=== PATIENT | female | born 1940 | race Asian ===

== ENCOUNTER 2017-05-21 08:05 | Day surgery (SDC) | payer MEDICARE, OTHER ==
[2017-05-16 11:15] LABS: HEMATOCRIT 31.3 % (36.0-47.0); HEMOGLOBIN 10.4 g/dL (12.0-15.5); HGB HCT DIFFERENCE -0.1; MEAN CORPUSCULAR HEMOGLOBIN 33.3 pg (27.0-33.4); MEAN CORPUSCULAR HGB CONC 33.3 g/dL (32.0-36.0); MEAN CORPUSCULAR VOLUME 100 fl (80-97); RED BLOOD COUNT 3.12 10^6/uL (3.72-5.28); RED CELL DISTRIBUTION WIDTH 13.1 % (11.5-14.0); WHITE BLOOD COUNT 7.4 10^3/uL (4.0-10.5)
[2017-05-16 11:42] LABS: ANION GAP 18 (5-19); BLOOD UREA NITROGEN 98 mg/dL (7-20); CALCIUM 10.7 mg/dL (8.4-10.2); CARBON DIOXIDE 28 mmol/L (22-30); CHLORIDE 97 mmol/L (98-107); CREATININE RESULT 4.21 mg/dL (0.52-1.25); GLUCOSE 89 mg/dL (75-110); POTASSIUM 4.6 mmol/L (3.6-5.0); SODIUM 142.8 mmol/L (137-145)
--- NOTE | 2017-05-16 13:49 | EKG REPORT ---
SEVERITY:- BORDERLINE ECG - SINUS RHYTHM NONSPECIFIC ST-T CHANGES LATERAL LEADS. : Confirmed by: Slade Mims MD 16-May-2017 13:49:38
[~2017-05-21 08:05] MED LIST: BACITRACIN INJ 50,000 UNIT VIAL ONE; BUPIVACAINE HCL 0.25 % INJ/PF (2.5 MG/1 ML) 30 ML VIAL ONE; CEFAZOLIN 1 GM/D5W RTU 1 GM/50 ML RTUPB IV PRN; HEPARIN SOD (PORCINE) 1,000 UNIT/ML 10 ML VIAL ONE; LIDOCAINE 0.5% INJ-PF (5 MG/ML) 50 ML SDV ONE; LIDOCAINE 1% INJ-PF (10 MG/ML) 30 ML SDV ONE; NORMAL SALINE 1000 ML 1,000 ML IV PRN
[2017-05-21 09:22] LABS: POTASSIUM 3.7 mmol/L (3.6-5.0)
[2017-05-21] MEDS ORDERED: FENTANYL CITRATE INJ/PF 100 MCG/2 ML AMPUL ONE (09:27)
[2017-05-21] MEDS ORDERED: MIDAZOLAM 2 MG/2 ML INJ ONE (09:27)
[2017-05-21] MEDS ORDERED: PROPOFOL INJ 200 MG/20 ML VIAL IV ONE (09:28)
[2017-05-21] MEDS ORDERED: DEXTROSE 50%-WATER 25 GM/50 ML DISP.SYRIN IV ONE (09:40)
[2017-05-21] MEDS ORDERED: DIPHENHYDRAMINE HCL 50 MG/ML VIAL IV PRN (10:00)
[2017-05-21] MEDS ORDERED: MORPHINE SULFATE 10 MG/ML INJ IV PRN (10:00)
[2017-05-21] MEDS ORDERED: MEPERIDINE HCL/PF INJ 25 MG/1 ML DISP.SYRIN IV PRN (10:00)
[2017-05-21] MEDS ORDERED: PROMETHAZINE HCL INJ 25 MG/1 ML VIAL IV PRN ×2 (10:00)
[2017-05-21] MEDS ORDERED: OXYCODONE-ACETAMINOPHEN 5-325 MG TABLET PO PRN ×3 (10:00→16:34)
[2017-05-21] MEDS ORDERED: FENTANYL CITRATE INJ/PF 100 MCG/2 ML AMPUL IV PRN ×3 (10:00)
[2017-05-21] MEDS ORDERED: NITROGLYCERIN/D5W 0 MG/0 ML RTUINJ IV ONE (10:11)
[2017-05-21 10:36] LABS: PROTHROMBIN TIME 14.5 SEC (11.4-15.4)
[2017-05-21 10:41] LABS: PARTIAL THROMBOPLASTIN TIME 28.6 SEC (23.5-35.8)
--- NOTE | 2017-05-21 11:34 | Operative Report ---
Operative Report DATE OF SURGERY: 05/21/17 PREOPERATIVE DIAGNOSIS: #1 chronic kidney disease stage IV. 2. Diabetes mellitus type 2. 3. Sleep apnea. 4. Hypertension POSTOPERATIVE DIAGNOSIS: #1 chronic kidney disease stage IV. 2. Diabetes mellitus type 2. 3. Sleep apnea. 4. Hypertension OPERATION: Insertion of left brachiocephalic arteriovenous fistula. SURGEON: PONCE HELTON CATALOG SPECIALIST: SHANA MYERS ANESTHESIA: LMAC TISSUE REMOVED OR ALTERED: Not applicable. COMPLICATIONS: None ESTIMATED BLOOD LOSS: 5 mL INTRAOPERATIVE FINDINGS: Of fairly small blood vessels in this mall body lady. The cephalic vein did except a 3.5 mm dilator up to over 15 cm. The Doppler signals were suboptimal initially and declined. This was improved by releasing the cephalic for good 4 cm above the elbow seems to improve the hemodynamics of the anastomosis. There was a good auscultated bruit at the end of the procedure. PROCEDURE: Operative Report PROCEDURE: After reviewing the procedure with the patient, [she] was taken to the operating room. The patient was sedated and the [left upper extremity] prepared with chlorhexidine and draped out with sterile linen. After the "" universal timeout", in which it was verified that the patient [received IV antibiotics] the procedure commenced. The sterilely sheathed ultrasound probe was used to evaluate the left venous and arterial systems, pertinent to the previously done vein mapping. Local anesthesia was infiltrated and a transverse incision made over the upper forearm , near the antecubital fossa. Dissection proceeded through the subcutaneous tissues down to the cephalic vein. This was dissected out proximally and distally for about 4 cm. Likewise major branches. The Bicipital aponeurosis was now incised longitudinally and the brachial artery dissected out for a distance of about 1.5 cm. Rubber loops were placed on either end. The patient was given 2500 units of heparin intravenously. The deep branch of the cephalic vein was transected and irrigated with heparinized solution. The distal branches were clipped Coronary dilators were accepted [up to 3.5 mm], and up to 15 cm. The artery was controlled proximally and distally with rubber loops. An arteriotomy approximately [1 cm] in length was made, the artery was irrigated proximally and distally with heparinized solution. The transected vein was now spatulated , it was then anastomosed end to end to side into the brachial artery. This was done using a continuous suture of 6-0 Prolene. Controls of the fistula were now released and it was analyzed using a Doppler probe. Signal initially suboptimal decline. There is maneuvers were done including further release of the cephalic vein for another 4 cm with ligation of side branches. This visibly improve the configuration of the anastomosis. This coincided with much improved pulsation of the fistula and Doppler signals. Hemostasis was secured once optimal function was assured, the wound was irrigated with antibiotic containing solution and closed. Closure was done using interrupted 3-0 PDS for the subcutaneous tissues. The skin was closed using a continuous subcutaneous suture of 4-0 Monocryl which was reinforced with Steri-Strips over benzoin. I then left the operative field and returned with a stethoscope covered with a sterile Tegaderm dressing. This allowed external auscultation of the fistula. Auscultation was [satisfactory]. The procedure was concluded by applying a Kerlix dressing over the surgical site. DICTATING PHYSICIAN: Christiano JI
--- NOTE | 2017-05-21 11:38 | PDOC DISCHARGE SUMMARY ---
Discharge Summary (SDC) - Discharge Final Diagnosis: #1 chronic kidney disease stage IV. 2. Diabetes mellitus type 2. 3. Sleep apnea. 4. Hypertension Date of Surgery: 05/21/17 Discharge Date: 05/22/17 Condition: Fair Treatment or Instructions: Discharge home tomorrow morning after overnight stay. Diet , [renal],as tolerated, when fully awake advance as tolerated. Activities within moderation encouraged. Percocet 1 8 hourly as needed for pain. Orally. Follow up in my office by appointment in about [1 week]. Call for appointment. Leave wounds [covered], [keep clean and dry, until office visit in 1 week]. Hold of on school/work [until evaluation in office]. May shower [in 48 hrs], [try to keep operated area as dry as possible]. Prescriptions: Oxycodone HCl/Acetaminophen [Percocet 5-325 mg Tablet] 1 tab PO ASDIR PRN #15 tab PRN Reason: Referrals: SERENE CONTRERAS MD [Primary Care Provider] - Discharge Diet: Other (Comments) - Renal, diabetic. Respiratory Treatments at Home: Deep Breathing/Coughing Discharge Activity: Activity As Tolerated Report the Following to Your Physician Immediately: Shortness of Breath, Unusual Bleeding
[2017-05-21] MEDS ORDERED: INSULIN ASPART 1 UNIT SUBCUT PRN (13:17)
[2017-05-21] MEDS ORDERED: INSULIN LISPRO 100 UNIT/ML 3 ML VIAL SUBCUT PRN (13:28)
[2017-05-21] MEDS ORDERED: ONDANSETRON HCL INJ/PF 4 MG/2 ML SDV ONE (13:30)
[2017-05-21] MEDS ORDERED: LIDOCAINE 2% INJ-PF (20 MG/ML) 10 ML AMPUL ONE (13:30)
[2017-05-21] MEDS ORDERED: OXYCODONE-ACETAMINOPHEN 5-325 MG TABLET ONE (16:34)
[2017-05-21] MEDS ORDERED: INSULIN ASPART PROTAMINE SQ SCH (18:00)
[2017-05-21] MEDS ORDERED: (PENDING PHARMACY ID) (Ascorbate Calcium [Vitamin C] 500 MG) PO SCH (18:00)
[2017-05-21] MEDS ORDERED: GINKGO BILOBA 60 MG PO SCH (18:00)
[2017-05-21] MEDS ORDERED: [UNRECOGNIZED DRUG - OTHER] SQ SCH (18:00)
[2017-05-21] MEDS: ASCORBIC ACID 500 MG TABLET PO SCH (18:46)
[2017-05-21] MEDS: HUM INSULIN NPH/REG INSULIN HM 100 UNIT/1 ML 3 ML SUBCUT SCH (18:46)
[2017-05-21] MEDS ORDERED: ATORVASTATIN CALCIUM 40 MG TABLET PO SCH (22:00)
[2017-05-21] MEDS: LISINOPRIL 10 MG TABLET PO SCH (22:03)
[2017-05-21] MEDS: HYDRALAZINE HCL 50 MG TABLET PO SCH (22:03)
[2017-05-22 08:00] VITALS: BP 144/54
[2017-05-22] MEDS ORDERED: FUROSEMIDE 40 MG TABLET PO SCH (08:00)
[2017-05-22] MEDS: ASCORBIC ACID 500 MG TABLET PO SCH (09:33)
[2017-05-22] MEDS: LISINOPRIL 10 MG TABLET PO SCH (09:34)
[2017-05-22] MEDS: HUM INSULIN NPH/REG INSULIN HM 100 UNIT/1 ML 3 ML SUBCUT SCH (09:36)
[2017-05-22] MEDS: HYDRALAZINE HCL 50 MG TABLET PO SCH (09:41)
[2017-05-22] MEDS ORDERED: FENOFIBRATE NANOCRYSTALLIZED 145 MG TABLET PO SCH (10:00)
[2017-05-22] MEDS ORDERED: [UNRECOGNIZED DRUG - OTHER] PO SCH (10:00)
[2017-05-22] MEDS ORDERED: AMLODIPINE BESYLATE 10 MG TABLET PO SCH (10:00)
[2017-05-22] MEDS ORDERED: SODIUM BICARBONATE 650 MG TABLET PO SCH (10:00)
[2017-05-22] MEDS ORDERED: ASPIRIN 81 MG TABLET, CHEWABLE PO SCH (10:00)
[2017-05-22] MEDS ORDERED: MSM PO SCH (10:00)
[2017-05-22] MEDS ORDERED: GLUCOSAMINE HCL PO SCH (10:00)
[2017-05-22] MEDS ORDERED: DOXAZOSIN MESYLATE 1 MG TABLET PO SCH (10:00)
[2017-05-22] MEDS ORDERED: CHOLECALCIFEROL PO SCH (10:00)
[2017-05-22] MEDS ORDERED: LEVOTHYROXINE SODIUM 0.025 MG TABLET PO SCH (10:00)
[2017-05-28] MEDS ORDERED: CLONIDINE 0.3 MG/24 HR PATCH.TDWK TD SCH (10:00)
== END 2017-05-22 10:37 | disposition home or self-care (01) ==
LOC: OROUT 08:05 → 4N 13:16 → OROUT 05-22 10:37
PROVIDERS: ATTEND Surgery
PROC: 05SF0ZZ Reposition Left Cephalic Vein, Open Approach (ICD-10-PCS; principal; 2017-05-21 10:00)
DX: G47.33 Obstructive sleep apnea (adult) (pediatric) (principal); E03.9 Hypothyroidism, unspecified; D50.9 Iron deficiency anemia, unspecified; M19.90 Unspecified osteoarthritis, unspecified site; E87.5 Hyperkalemia; Z88.8 Allergy status to other drugs, medicaments and biological substances; I12.0 Hypertensive chronic kidney disease with stage 5 chronic kidney disease or end stage renal disease; E11.22 Type 2 diabetes mellitus with diabetic chronic kidney disease; N18.5 Chronic kidney disease, stage 5; I12.9 Hypertensive chronic kidney disease with stage 1 through stage 4 chronic kidney disease, or unspecified chronic kidney disease; E11.21 Type 2 diabetes mellitus with diabetic nephropathy; Z79.899 Other long term (current) drug therapy; Z79.82 Long term (current) use of aspirin; Z79.4 Long term (current) use of insulin
CPT/HCPCS: 36821; 93005; 36415 ×2; 82962; 82947; 84132; 85027; 85610; 85730; 80048; 93010; C1757; J2250; A9270 ×13; J3490 ×5; J0690; J3010; J1644; J2405; J2704; 01844; J1815

== ENCOUNTER → 2017-05-24 | Outpatient (CLI) | payer MEDICARE, OTHER ==
[2017-05-26 07:38] LABS: HEPATITIS C VIRUS AB <0.1 s/co ratio (0.0-0.9)
== END ==
LOC: OD 15:03
PROVIDERS: ATTEND Internal Medicine Nephrology
DX: E11.22 Type 2 diabetes mellitus with diabetic chronic kidney disease (principal); I12.9 Hypertensive chronic kidney disease with stage 1 through stage 4 chronic kidney disease, or unspecified chronic kidney disease; N18.5 Chronic kidney disease, stage 5; E11.21 Type 2 diabetes mellitus with diabetic nephropathy
CPT/HCPCS: 36415; 86317; 86704; 86803; 86804; 87340

== ENCOUNTER 2017-05-27 14:22 | Day surgery (SDC) | payer MEDICARE, OTHER ==
[2017-05-27 15:25] LABS: HEMATOCRIT 23.7 % (36.0-47.0); HEMOGLOBIN 8.3 g/dL (12.0-15.5); HGB HCT DIFFERENCE 1.2; MEAN CORPUSCULAR HEMOGLOBIN 34.1 pg (27.0-33.4); MEAN CORPUSCULAR HGB CONC 35.3 g/dL (32.0-36.0); MEAN CORPUSCULAR VOLUME 97 fl (80-97); RED BLOOD COUNT 2.45 10^6/uL (3.72-5.28); RED CELL DISTRIBUTION WIDTH 12.7 % (11.5-14.0); WHITE BLOOD COUNT 5.1 10^3/uL (4.0-10.5)
[2017-05-27 15:41] LABS: ANION GAP 15 (5-19); BLOOD UREA NITROGEN 84 mg/dL (7-20); CALCIUM 9.3 mg/dL (8.4-10.2); CARBON DIOXIDE 25 mmol/L (22-30); CHLORIDE 102 mmol/L (98-107); CREATININE RESULT 4.29 mg/dL (0.52-1.25); GLUCOSE 216 mg/dL (75-110); POTASSIUM 3.8 mmol/L (3.6-5.0); SODIUM 142.2 mmol/L (137-145)
[2017-05-27] MEDS ORDERED: FENTANYL CITRATE INJ/PF 100 MCG/2 ML AMPUL ONE (16:16)
[2017-05-27] MEDS ORDERED: LIDOCAINE 0.5% INJ-PF (5 MG/ML) 50 ML SDV ONE (16:16)
[2017-05-27] MEDS ORDERED: PROPOFOL INJ 200 MG/20 ML VIAL IV ONE (16:17)
[2017-05-27] MEDS ORDERED: BACITRACIN INJ 50,000 UNIT VIAL ONE (16:17)
[2017-05-27] MEDS ORDERED: MIDAZOLAM 2 MG/2 ML INJ ONE (16:17)
[2017-05-27] MEDS ORDERED: BUPIVACAINE HCL 0.25 % INJ/PF (2.5 MG/1 ML) 30 ML VIAL ONE (16:24)
[2017-05-27] MEDS ORDERED: CEFAZOLIN INJ 1 GM VIAL ONE (17:12)
[2017-05-27] MEDS ORDERED: MEPERIDINE HCL/PF INJ 25 MG/1 ML DISP.SYRIN IV PRN (17:13)
[2017-05-27] MEDS ORDERED: FENTANYL CITRATE INJ/PF 100 MCG/2 ML AMPUL IV PRN ×3 (17:13)
[2017-05-27] MEDS ORDERED: MORPHINE SULFATE 10 MG/ML INJ IV PRN (17:13)
[2017-05-27] MEDS ORDERED: PROMETHAZINE HCL INJ 25 MG/1 ML VIAL IV PRN ×2 (17:13)
[2017-05-27] MEDS ORDERED: ONDANSETRON HCL INJ/PF 4 MG/2 ML SDV IV PRN (17:13)
[2017-05-27] MEDS ORDERED: OXYCODONE-ACETAMINOPHEN 5-325 MG TABLET PO PRN ×2 (17:13)
[2017-05-27] MEDS ORDERED: DIPHENHYDRAMINE HCL 50 MG/ML VIAL IV PRN (17:13)
--- NOTE | 2017-05-27 18:04 | PDOC DISCHARGE SUMMARY ---
Discharge Summary (SDC) - Discharge Final Diagnosis: #1 end-stage renal disease requiring hemodialysis. 2. Diabetes mellitus type 2. 3. Hypertension. Date of Surgery: 05/27/17 Discharge Date: 05/28/17 Condition: Good Treatment or Instructions: Discharge home in the morning after overnight stay. Head up to 35 at all times for 48 hours. Diet , [renal],as tolerated, when fully awake advance as tolerated. Activities within moderation encouraged. Follow up in my office by appointment in about [3 weeks]. Call for appointment. Leave wounds [covered], [keep clean and dry, until office visit in 1 week]. Medications per med rec. Hold of on school/work [until evaluation in office]. May shower [in 48 hrs], [try to keep operated area as dry as possible]. Referrals: SERENE CONTRERAS MD [Primary Care Provider] - Discharge Diet: Other (Comments) - Renal Respiratory Treatments at Home: Deep Breathing/Coughing Discharge Activity: Activity As Tolerated Report the Following to Your Physician Immediately: Shortness of Breath, Unusual Bleeding
--- NOTE | 2017-05-27 18:07 | Operative Report ---
Operative Report DATE OF SURGERY: 05/27/17 PREOPERATIVE DIAGNOSIS: #1 end-stage renal disease requiring hemodialysis. 2. Diabetes mellitus type 2. 3. Hypertension. POSTOPERATIVE DIAGNOSIS: #1 end-stage renal disease requiring hemodialysis. Post insertion of permacatheter. 2. Diabetes mellitus type 2. 3. Hypertension. OPERATION: 1. Ultrasound evaluation of the right internal jugular vein. 2. Insertion of PermCath catheter via real-time access in the right internal jugular vein. 3. Angiogram and interpretation. SURGEON: PONCE HELTON WASH RACK OPERATOR: None ANESTHESIA: LMAC TISSUE REMOVED OR ALTERED: Not applicable COMPLICATIONS: None ESTIMATED BLOOD LOSS: 5 mL. INTRAOPERATIVE FINDINGS: Of a satisfactory right internal jugular vein, somewhat on the small side estimated to be about a centimeter in diameter. Adequate for access. Satisfactory position of the PermCath to the tip the middle of the right atrial pool. Easy egress of blood and ingress of heparinized solution through both ports. Angiogram demonstrated smooth flow of contrast through the right atrium, ventricle and pulmonary outflow tract. Atrium is normal to small sized. PROCEDURE: After obtaining informed consent, the patient was taken to the [Head Well Puller] and positioned supine. The [right neck] and chest were prepared with chlorhexidine and draped out with sterile linen. After the " universal timeout", in which it was verified that the patient continued to receive antibiotic, the procedure commenced. A steriley sheathed ultrasound probe was used to evaluate the [ right internal jugular] vein. Local anesthesia was infiltrated adjacent to the probe. Access into the [right internal jugular] vein was obtained using a micropuncture needle, followed by micropuncture wire and then a micropuncture catheter. This was followed by introduction of a 0.035 guidewire the tip of which was placed down into the inferior vena cava . A 23 cm long PermCath with was now positioned over the chest and an exit site marked and locally anesthetized ,the catheter was placed between the 2 incisions. Proximally, the catheter was now positioned using a peel-away sheath, after dilation. Easy ingress of heparinized solution and egress of blood obtained through both ports. A completion angiogram was done by injecting contrast. The findings were as dictated. The neck incision was now closed using interrupted 3-0 PDS to the subcutaneous tissues, the catheter was anchored at the exit site using 3- 0 PDS. A Biopatch device was now placed adjacent to the catheter. Dressings were applied and the procedure concluded. Exposure time: [1.6 minutes]. Exposure: [12.8 mg] per centimeters squared. Contrast amount: [10 mL] of [id number] low osmolality. Copies of the dictated operative report for Dr. Ponce Aquino MD.concluded. Copies of the dictated operative report for Dr. Ponce Aquino MD.
[2017-05-27] MEDS ORDERED: NAPROXEN SOD PO PRN (23:17)
[2017-05-27] MEDS ORDERED: DIPHENHYDRAMINE PO PRN (23:17)
[2017-05-27] MEDS ORDERED: INSULIN ASPART PROTAMINE SQ SCH (23:30)
[2017-05-27] MEDS ORDERED: [UNRECOGNIZED DRUG - OTHER] SQ SCH (23:30)
[2017-05-28] MEDS ORDERED: INSULIN LISPRO 100 UNIT/ML 3 ML VIAL SUBCUT PRN (01:15)
[2017-05-28] MEDS ORDERED: DEXTROSE 50%-WATER SYRINGE 25 GM/50 ML DOSE IV PRN (01:15)
[2017-05-28] MEDS ORDERED: GLUCAGON,HUMAN RECOMB 1 MG INJ IM PRN (01:15)
[2017-05-28] MEDS ORDERED: DEXTROSE 40% GEL 15 GM TUBE PO PRN (01:15)
[2017-05-28] MEDS ORDERED: DEXTROSE 50%-WATER SYRINGE 12.5 GM/25 ML DOSE IV PRN (01:15)
[2017-05-28] MEDS ORDERED: DEXTROSE 40% GEL 15 GM TUBE X 2 PO PRN (01:15)
[2017-05-28 08:19] VITALS: BP 159/74
--- NOTE | 2017-05-28 08:36 | RADIOLOGY REPORT (SQ) ---
EXAM DESCRIPTION: FLUORO/CV PLACEMENT COMPLETED DATE/TIME: 05/27/2017 5:51 pm REASON FOR STUDY: PERMACATH N18.9 CHRONIC KIDNEY DISEASE, UNSPECIFIED COMPARISON: None. FLUOROSCOPY TIME: 1.6 minutes. 2 images saved to PACS. TECHNIQUE: Intra-operative images acquired during surgical procedure to evaluate progress. NUMBER OF IMAGES: 2 LIMITATIONS: None. FINDINGS: Images of the chest acquired during catheter placement. IMPRESSION: IMAGE(S) OBTAINED DURING PROCEDURE. COMMENT: Quality ID [id number]: Final reports for procedures using fluoroscopy that document radiation exp osure indices, or exposure time and number of fluorographic images (if radiation exposure indices are not available) Please consult full operative report of the attending physician for description of the procedure. TECHNICAL DOCUMENTATION: JOB ID: [id number] [employer]- All Rights Reserved
[2017-05-28] MEDS ORDERED: AMLODIPINE BESYLATE 10 MG TABLET PO SCH (10:00)
[2017-05-28] MEDS ORDERED: LEVOTHYROXINE SODIUM 0.025 MG TABLET PO SCH (10:00)
[2017-05-28] MEDS ORDERED: FERROUS SULFATE 325 MG TABLET PO SCH (10:00)
[2017-05-28] MEDS ORDERED: FENOFIBRATE NANOCRYSTALLIZED 145 MG TABLET PO SCH (10:00)
[2017-05-28] MEDS ORDERED: FUROSEMIDE 40 MG TABLET PO SCH (10:00)
[2017-05-28] MEDS ORDERED: [UNRECOGNIZED DRUG - MIXTURE] PO SCH (10:00)
[2017-05-28] MEDS ORDERED: DOXAZOSIN MESYLATE 1 MG TABLET PO SCH (10:00)
[2017-05-28] MEDS ORDERED: CHOLECALCIFEROL (D3) 1,000 UNIT TABLET PO SCH (10:00)
[2017-05-28] MEDS ORDERED: OMEGA-3 ACID ETHYL ESTERS 1 GM CAPSULE PO SCH (10:00)
[2017-05-28] MEDS ORDERED: CARVEDILOL 12.5 MG TABLET PO SCH (10:00)
[2017-05-28] MEDS ORDERED: ASPIRIN 81 MG TABLET, ENT COATED PO SCH (10:00)
[2017-05-28] MEDS ORDERED: HYDRALAZINE HCL 50 MG TABLET PO SCH (10:00)
[2017-05-28] MEDS ORDERED: ASCORBIC ACID 500 MG TABLET PO SCH (10:00)
[2017-05-28] MEDS ORDERED: LISINOPRIL 10 MG TABLET PO SCH (10:00)
[2017-05-28] MEDS ORDERED: SODIUM BICARBONATE 650 MG TABLET PO SCH (11:00)
[2017-05-28] MEDS ORDERED: ATORVASTATIN CALCIUM 40 MG TABLET PO SCH (22:00)
[2017-06-02] MEDS ORDERED: CLONIDINE 0.3 MG/24 HR PATCH.TDWK TD SCH (10:00)
== END 2017-05-28 10:10 | disposition home or self-care (01) ==
LOC: OROUT 14:22 → 4S 14:22 → OROUT 05-28 10:10
PROVIDERS: ATTEND Surgery
PROC: 05H533Z Insertion of Infusion Device into Right Subclavian Vein, Percutaneous Approach (ICD-10-PCS; principal; 2017-05-27 16:30)
DX: I12.0 Hypertensive chronic kidney disease with stage 5 chronic kidney disease or end stage renal disease (principal); N18.6 End stage renal disease; E11.22 Type 2 diabetes mellitus with diabetic chronic kidney disease; Z99.2 Dependence on renal dialysis; G47.33 Obstructive sleep apnea (adult) (pediatric); E03.9 Hypothyroidism, unspecified; M19.90 Unspecified osteoarthritis, unspecified site; E11.21 Type 2 diabetes mellitus with diabetic nephropathy; E78.5 Hyperlipidemia, unspecified; Z88.8 Allergy status to other drugs, medicaments and biological substances
CPT/HCPCS: 36561; 36415; 82962; 85027; 80048; 77001; C1713; C1769; C1752; Q9967; J2250; J3490 ×2; J0690; A9270; J2704; J1644; 532; J1815; J3010

== ENCOUNTER 2017-06-27 16:47 | Emergency (ER) | payer MEDICARE, OTHER ==
--- NOTE | 2017-06-27 16:53 | ER Document Report ---
ED Blood Sugar Problem - General Stated Complaint: BLOOD SUGAR PROBLEM Time Seen by Provider: 06/27/17 16:51 Mode of Arrival: Stretcher Information source: Patient, Emergency Med Personnel TRAVEL OUTSIDE OF THE [place] IN LAST 30 DAYS: No - HPI Patient complains to provider of: Low blood sugar Onset: Just prior to arrival Onset/Duration: Sudden Quality of pain: No pain Notes: Patient is a 76-year-old female brought to the emergency room by EMS for low blood sugar, she takes insulin for her diabetes, she took 35 units this morning and ate 2 waffles and 2 eggs, then she went to dialysis and did not eat lunch or anything else throughout the day, during dialysis she became less responsive prompting the dialysis nurse to call EMS when they arrived they found her blood sugar to be 35, they given an amp of D50 and patient's blood sugar went up to 290, she has no complaints at time of arrival in the emergency department - Related Data Allergies/Adverse Reactions: tolterodine tartrate [From [facility]] Allergy (Verified 05/16/17 09:57) Hives Past Medical History - General Information source: Patient, Emergency Med Personnel - Social History Smoking Status: Never Smoker Family History: Reviewed & Not Pertinent - Past Medical History Cardiac Medical History: Reports: Hx Hypercholesterolemia, Hx Hypertension Denies: Hx Atrial Fibrillation, Hx Congestive Heart Failure, Hx Coronary Artery Disease, Hx Heart Attack, Hx Peripheral Vascular Disease, Hx Heart Murmur Pulmonary Medical History: Reports: Hx Pneumonia Denies: Hx Asthma - EXERTIONAL BECOMES SOB, Hx Bronchitis, Hx COPD, Hx Tuberculosis Neurological Medical History: Denies: Hx Cerebrovascular Accident, Hx Seizures Endocrine Medical History: Reports: Hx Diabetes Mellitus Type 1, Hx Diabetes Mellitus Type 2 GI Medical History: Reports: Hx Gastroesophageal Reflux Disease, Hx Irritable Bowel, Hx Ulcer Musculoskeltal Medical History: Reports Hx Arthritis Psychiatric Medical History: Reports: Hx Depression Past Surgical History: Reports: Hx Appendectomy - 01/15/12, Hx Section - x 1, Hx Orthopedic Surgery - left index finer. Denies: Hx Pacemaker, Hx Tonsillectomy - Immunizations Hx Diphtheria, Pertussis, Tetanus Vaccination: Yes Review of Systems - Review of Systems Constitutional: No symptoms reported EENT: No symptoms reported Cardiovascular: No symptoms reported Respiratory: No symptoms reported Gastrointestinal: No symptoms reported Genitourinary: No symptoms reported Female Genitourinary: No symptoms reported Musculoskeletal: No symptoms reported Skin: No symptoms reported Hematologic/Lymphatic: No symptoms reported Neurological/Psychological: No symptoms reported -: Yes All other systems reviewed and negative Physical Exam - Vital signs Vitals: Pulse Resp BP Pulse Ox 60 18 140/47 H 98 06/27/17 17:15 06/27/17 17:15 06/27/17 17:15 06/27/17 17:15 Interpretation: Normal - General General appearance: Appears well, Alert - HEENT Head: Normocephalic, Atraumatic Eyes: Normal Pupils: PERRL - Respiratory Respiratory status: Other - Dialysis catheter present in the right anterior chest wall Chest status: Nontender Breath sounds: Normal Chest palpation: Normal - Cardiovascular Rhythm: Regular Heart sounds: Normal auscultation Murmur: No - Abdominal Inspection: Normal Distension: No distension Bowel sounds: Normal Tenderness: Nontender Organomegaly: No organomegaly - Back Back: Normal, Nontender - Extremities General upper extremity: Normal inspection, Nontender, Normal color, Normal ROM , Normal temperature General lower extremity: Normal inspection, Nontender, Normal color, Normal ROM , Normal temperature, Normal weight bearing. No: Lewis's sign - Neurological Neuro grossly intact: Yes Cognition: Normal Orientation: AAOx4 Cameron Coma Scale Eye Opening: Spontaneous Cameron Coma Scale Verbal: Oriented Farnham Coma Scale Motor: Obeys Commands Farnham Coma Scale Total: 15 Speech: Normal Motor strength normal: LUE, RUE, LLE, RLE Sensory: Normal - Psychological Associated symptoms: Normal affect, Normal mood - Skin Skin Temperature: Warm Skin Moisture: Dry Skin Color: Normal Course - Re-evaluation Re-evalutation: 06/27/17 18:09 Patient reports feeling much better at time of arrival, she been awake alert and oriented the entire time she has been here, she reports that she did in fact complete dialysis prior to coming to the emergency room, she was given a meal tray which she ate all of, repeat blood sugar 162, she is on insulin only, no oral hypoglycemics, therefore patient will be discharged home with instructions for follow-up and advised to return if any additional concerns, patient acknowledges understanding and agreement with this plan 06/27/17 18:39 - Vital Signs Vital signs: Temp Pulse Resp BP Pulse Ox 60 18 140/47 H 98 06/27/17 17:15 06/27/17 17:15 06/27/17 17:15 06/27/17 17:15 - Laboratory Result Diagrams: 06/27/17 17:15 06/27/17 17:15 Laboratory results interpreted by me: 06/27/17 06/27/17 06/27/17 17:15 17:15 18:19 RBC 2.96 L Hgb 10.0 L Hct 29.1 L MCV 98 H MCH 33.9 H RDW 14.4 H Lymphocytes % 10.9 L Eosinophils % 10.4 H Absolute Eosinophils 0.9 H Sodium 136.0 L Potassium 3.2 L Est GFR ( Amer) 53 L Est GFR (Non-Af Amer) 44 L Glucose 114 H POC Glucose 162 H Calcium 7.9 L Discharge - Discharge Clinical Impression: Hypoglycemia Condition: Stable Disposition: HOME, SELF-CARE Instructions: Hypoglycemia ([facility]) Additional Instructions: Follow up with your primary care provider in one to 2 days. Return to the emergency room immediately if symptoms worsen or any additional concerns. Referrals: SERENE CONTRERAS MD [Primary Care Provider] - Follow up as needed
[2017-06-27 17:30] LABS: ABSOLUTE EOSINOPHILS # (AUTO) 0.9 10^3/uL (0.0-0.6); ABSOLUTE MONOCYTES (AUTO) 0.8 10^3/uL (0.1-1.4); ABSOLUTE NEUT (AUTO) 6.1 10^3/uL (1.7-8.2); BASOPHILS % (AUTO) 0.6 % (0-2); EOSINOPHILS % (AUTO) 10.4 % (0-6); HEMATOCRIT 29.1 % (36.0-47.0); HGB HCT DIFFERENCE 0.9; LYMPHOCYTES % (AUTO) 10.9 % (13-45); MEAN CORPUSCULAR HEMOGLOBIN 33.9 pg (27.0-33.4); MEAN CORPUSCULAR HGB CONC 34.5 g/dL (32.0-36.0); MEAN CORPUSCULAR VOLUME 98 fl (80-97); RED BLOOD COUNT 2.96 10^6/uL (3.72-5.28); RED CELL DISTRIBUTION WIDTH 14.4 % (11.5-14.0); SEGMENTED NEUTROPHILS % (AUTO) 69.1 % (42-78); WHITE BLOOD COUNT 8.8 10^3/uL (4.0-10.5)
[2017-06-27 17:45] LABS: ANION GAP 11 (5-19); BLOOD UREA NITROGEN 11 mg/dL (7-20); CALCIUM 7.9 mg/dL (8.4-10.2); CARBON DIOXIDE 26 mmol/L (22-30); CHLORIDE 99 mmol/L (98-107); GLUCOSE 114 mg/dL (75-110); POTASSIUM 3.2 mmol/L (3.6-5.0)
[2017-06-27 18:48] VITALS: BP 147/52
== END 2017-06-27 18:48 | disposition home or self-care (01) ==
LOC: ER 16:47
DX: E11.649 Type 2 diabetes mellitus with hypoglycemia without coma (principal); Z79.4 Long term (current) use of insulin; E78.00 Pure hypercholesterolemia, unspecified; I10 Essential (primary) hypertension; Z99.2 Dependence on renal dialysis
CPT/HCPCS: 36415; 80048; 82962; 85025; 99283

== ENCOUNTER 2017-08-07 09:34 | Day surgery (SDC) | payer MEDICARE, OTHER ==
[2017-08-07 10:31] LABS: HEMOGLOBIN 12.2 g/dL (12.0-15.5); HGB HCT DIFFERENCE 0.6; MEAN CORPUSCULAR HEMOGLOBIN 33.6 pg (27.0-33.4); MEAN CORPUSCULAR HGB CONC 33.9 g/dL (32.0-36.0); MEAN CORPUSCULAR VOLUME 99 fl (80-97); RED BLOOD COUNT 3.64 10^6/uL (3.72-5.28); RED CELL DISTRIBUTION WIDTH 14.7 % (11.5-14.0); WHITE BLOOD COUNT 4.3 10^3/uL (4.0-10.5)
[2017-08-07] MEDS ORDERED: FENTANYL CITRATE INJ/PF 100 MCG/2 ML AMPUL ONE (10:57)
[2017-08-07] MEDS ORDERED: MIDAZOLAM 2 MG/2 ML INJ ONE (10:57)
[2017-08-07] MEDS ORDERED: HEPARIN SOD (PORCINE) 5,000 UNIT/ML 1 ML SYRINGE ONE (10:57)
[2017-08-07 11:00] LABS: ANION GAP 14 (5-19); BLOOD UREA NITROGEN 40 mg/dL (7-20); CALCIUM 8.3 mg/dL (8.4-10.2); CARBON DIOXIDE 25 mmol/L (22-30); CHLORIDE 100 mmol/L (98-107); CREATININE RESULT 2.95 mg/dL (0.52-1.25); GLUCOSE 142 mg/dL (75-110); POTASSIUM 4.3 mmol/L (3.6-5.0); SODIUM 138.7 mmol/L (137-145)
[2017-08-07] MEDS ORDERED: LIDOCAINE 0.5% INJ-PF (5 MG/ML) 50 ML SDV ONE (11:02)
--- NOTE | 2017-08-07 13:19 | PDOC DISCHARGE SUMMARY ---
Discharge Summary (SDC) - Discharge Final Diagnosis: #1 malfunctioning AV fistula left brachiocephalic. 2. End-stage renal disease on hemodialysis. 3. Multiple comorbidities. Date of Surgery: 08/07/17 Discharge Date: 08/08/17 Condition: Fair Treatment or Instructions: Discharge home tomorrow morning. Diet , [renal],as tolerated, when fully awake advance as tolerated. Activities within moderation encouraged. Follow up in my office by appointment in about [1 week]. Call for appointment. Leave wounds [covered], [keep clean and dry, until office visit in 1 week]. Hold of on school/work [until evaluation in office]. Meds per med rec. May shower [in 48 hrs], [try to keep operated area as dry as possible]. Referrals: PONCE HERNÁNDEZ MD [ACTIVE STAFF] - Discharge Diet: Other (Comments) - Renal Respiratory Treatments at Home: Deep Breathing/Coughing Discharge Activity: Activity As Tolerated Report the Following to Your Physician Immediately: Shortness of Breath, Unusual Bleeding
--- NOTE | 2017-08-07 13:24 | Operative Report ---
Operative Report DATE OF SURGERY: 08/07/17 PREOPERATIVE DIAGNOSIS: #1 malfunctioning AV fistula left brachiocephalic. 2. End-stage renal disease on hemodialysis. 3. Multiple comorbidities. POSTOPERATIVE DIAGNOSIS: #1 malfunctioning AV fistula left brachiocephalic. 2. End-stage renal disease on hemodialysis. 3. Multiple comorbidities. OPERATION: 1. Ultrasound evaluation in the left arm brachiocephalic fistula. 2. Angioplasty. 3. Angiogram and interpretation SURGEON: PONCE HELTON EDITORIAL CLERK: None ANESTHESIA: Moderate Sedation TISSUE REMOVED OR ALTERED: Not applicable. COMPLICATIONS: None. ESTIMATED BLOOD LOSS: 5 mL. INTRAOPERATIVE FINDINGS: Of a well founded left arm radiocephalic fistula. Large hematoma in the mid arm is almost resolved. Firmness around the anastomotic site persists. Ultrasound evaluation showed the fistula to be about 6 mm for about 4 cm above the anastomosis. Above that level averaging about 3.5 mm. Dilatation done with visibly matured veins. Much easier to palpate after angioplasty. Slight spasm is noted in the fistula and this was resolved with repeat angioplasty. Using a 6 mm angioplasty balloon. Also noted is a small collateral. Of dubious significance. AV access for hemodialysis is anticipated after office visit in about a week. PROCEDURE: PROCEDURE: After verifying the procedure and having obtained informed consent, the patient's left arm was prepared with Chlorhexidine and draped out with sterile linen. Local anesthesia infiltrated. Ultrasound used to evaluate the fistula and then to a low percutaneous access into the fistula ,[ antegrade], obtained about [2 cm] from the arteriovenous anastomosis using a micro puncture needle followed by micro puncture wire and then a micro puncture catheter. A 0.035 Blissfield wire was inserted, and over this, a 5 Indonesian short introducer was placed, this was followed by a 6-mm] Hodge angioplasty balloon . Angioplasty was serially done from the upper fistula down to the introducer. Inflating using a 3 mils syringe for 1-2 minutes at a time. Completion angiogram demonstrated [satisfactory result]. The instrumentation was now withdrawn hand-held pressure for 10 minutes dressings applied, procedure concluded. Exposure time: 1.1 minutes Radiation: 10.25 mCi per centimeter squared Contrast: 25 mm device. DICTATING PHYSICIAN: PONCE HERNÁNDEZ M.D. cc: PONCE HERNÁNDEZ M.D. ([id number]) >>
--- NOTE | 2017-08-07 13:54 | RADIOLOGY REPORT (SQ) ---
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 FLUOROSCOPY TIME: 1.1 minute. 15 images saved to PACS. TECHNIQUE: Intra-operative images acquired during surgical procedure to evaluate progress. NUMBER OF IMAGES: 15 images. LIMITATIONS: None. FINDINGS: Imaging in fluoroscopy during left upper extremity dialysis access evaluation and plasty b y Dr. Aquino . Please refer to the operative report for further details. IMPRESSION: INTRA PROCEDURAL IMAGING ABOVE . COMMENT: Quality ID [id number]: Final reports for procedures using fluoroscopy that document radiation exp osure indices, or exposure time and number of fluorographic images (if radiation exposure indices are not available) Please consult full operative report of the attending physician for description of the procedure. TECHNICAL DOCUMENTATION: JOB ID: [id number] [employer]- All Rights Reserved
[2017-08-07] MEDS ORDERED: NAPROXEN SOD PO SCH (15:15)
[2017-08-07] MEDS ORDERED: [UNRECOGNIZED DRUG - OTHER] SQ SCH (15:15)
[2017-08-07] MEDS ORDERED: INSULIN ASPART PROTAMINE SQ SCH (15:15)
[2017-08-07] MEDS ORDERED: DIPHENHYDRAMINE PO SCH (15:15)
[2017-08-07] MEDS: FERROUS SULFATE 325 MG TABLET PO SCH (18:01)
[2017-08-07] MEDS: ASCORBIC ACID 500 MG TABLET PO SCH (18:01)
[2017-08-07] MEDS ORDERED: (PENDING PHARMACY ID) (Lisinopril [Prinivil 40 Mg Tablet] 20 MG) PO SCH (22:00)
[2017-08-07] MEDS ORDERED: ATORVASTATIN CALCIUM 40 MG TABLET PO SCH (22:00)
[2017-08-07] MEDS ORDERED: (PENDING PHARMACY ID) (Hydralazine Hcl [Hydralazine Hcl] 100 MG) PO SCH (22:00)
[2017-08-07] MEDS: HYDRALAZINE HCL 50 MG TABLET PO SCH (22:07)
[2017-08-07] MEDS: LISINOPRIL 10 MG TABLET PO SCH (22:08)
[2017-08-07] MEDS ORDERED: DEXTROSE 40% GEL 15 GM TUBE PO PRN (22:46)
[2017-08-07] MEDS ORDERED: DEXTROSE 40% GEL 15 GM TUBE X 2 PO PRN (22:46)
[2017-08-07] MEDS ORDERED: GLUCAGON,HUMAN RECOMB 1 MG INJ IM PRN (22:46)
[2017-08-07] MEDS ORDERED: INSULIN REG, HUMAN 100 UNIT/ML 3 ML VIAL (PYX) SUBCUT PRN (22:46)
[2017-08-07] MEDS ORDERED: DEXTROSE 50%-WATER SYRINGE 12.5 GM/25 ML DOSE IV PRN (22:46)
[2017-08-07] MEDS ORDERED: DEXTROSE 50%-WATER SYRINGE 25 GM/50 ML DOSE IV PRN (22:46)
[2017-08-07] MEDS ORDERED: ZOLPIDEM TARTRATE 5 MG TABLET PO PRN (23:45)
[2017-08-07] MEDS ORDERED: DIPHENHYDRAMINE HCL 25 MG CAPSULE PO ONE (23:45)
[2017-08-08] MEDS ORDERED: LEVOTHYROXINE SODIUM 0.025 MG TABLET PO SCH ×2 (06:00→10:00)
[2017-08-08] MEDS: HYDRALAZINE HCL 50 MG TABLET PO SCH (09:36)
[2017-08-08] MEDS: LISINOPRIL 10 MG TABLET PO SCH (09:39)
[2017-08-08] MEDS: FERROUS SULFATE 325 MG TABLET PO SCH (09:40)
[2017-08-08] MEDS: ASCORBIC ACID 500 MG TABLET PO SCH (09:40)
[2017-08-08] MEDS ORDERED: OMEGA PO SCH (10:00)
[2017-08-08] MEDS ORDERED: (PENDING PHARMACY ID) (Carvedilol [Coreg 25 Mg Tablet] 1 TAB) PO SCH (10:00)
[2017-08-08] MEDS ORDERED: ASPIRIN 81 MG TABLET, ENT COATED PO SCH (10:00)
[2017-08-08] MEDS ORDERED: FOLIC ACID/VITAMIN B COMP W-C CAPSULE PO SCH (10:00)
[2017-08-08] MEDS ORDERED: OMEGA-3 ACID ETHYL ESTERS 1 GM CAPSULE PO SCH (10:00)
[2017-08-08] MEDS ORDERED: FATTY ACIDS PO SCH (10:00)
[2017-08-08] MEDS ORDERED: FENOFIBRATE NANOCRYSTALLIZED 145 MG TABLET PO SCH (10:00)
[2017-08-08] MEDS ORDERED: CHOLECALCIFEROL (D3) 1,000 UNIT TABLET PO SCH (10:00)
[2017-08-08] MEDS ORDERED: CARVEDILOL 12.5 MG TABLET PO SCH (10:00)
[2017-08-08] MEDS ORDERED: DOXAZOSIN MESYLATE 1 MG TABLET PO SCH (10:00)
[2017-08-08] MEDS ORDERED: AMLODIPINE BESYLATE 10 MG TABLET PO SCH (10:00)
[2017-08-08] MEDS ORDERED: FISH OIL PO SCH (10:00)
[2017-08-08] MEDS ORDERED: (PENDING PHARMACY ID) (Cholecalciferol (Vitamin D3) [Vitamin D3] 5,000 UNIT) PO SCH (10:00)
[2017-08-08] MEDS ORDERED: [UNRECOGNIZED DRUG - MIXTURE] PO SCH (10:00)
[2017-08-08] MEDS ORDERED: FUROSEMIDE 40 MG TABLET PO SCH (10:00)
[2017-08-08 10:43] VITALS: BP 138/60
[2017-08-11] MEDS ORDERED: CLONIDINE 0.3 MG/24 HR PATCH.TDWK TD SCH (10:00)
== END 2017-08-08 11:00 | disposition home or self-care (01) ==
LOC: ASU 09:34 → 2S 13:30 → ASU 08-08 11:00
PROVIDERS: ATTEND Surgery
PROC: 057F3DZ Dilation of Left Cephalic Vein with Intraluminal Device, Percutaneous Approach (ICD-10-PCS; principal; 2017-08-07)
DX: T82.858A Stenosis of other vascular prosthetic devices, implants and grafts, initial encounter (principal); Y83.2 Surgical operation with anastomosis, bypass or graft as the cause of abnormal reaction of the patient, or of later complication, without mention of misadventure at the time of the procedure; I12.0 Hypertensive chronic kidney disease with stage 5 chronic kidney disease or end stage renal disease; N18.6 End stage renal disease; Z99.2 Dependence on renal dialysis; E03.9 Hypothyroidism, unspecified; D50.9 Iron deficiency anemia, unspecified; M19.90 Unspecified osteoarthritis, unspecified site; I12.9 Hypertensive chronic kidney disease with stage 1 through stage 4 chronic kidney disease, or unspecified chronic kidney disease; E78.5 Hyperlipidemia, unspecified; G47.33 Obstructive sleep apnea (adult) (pediatric); E11.9 Type 2 diabetes mellitus without complications; Z79.899 Other long term (current) drug therapy; Z88.8 Allergy status to other drugs, medicaments and biological substances; Z79.82 Long term (current) use of aspirin; Z79.4 Long term (current) use of insulin; Z88.7 Allergy status to serum and vaccine
CPT/HCPCS: 36415; 82962; 85027; 80048; 36902; 76937; J2250; A9270 ×17; J1644 ×2; J3010; J3490; J1815

== ENCOUNTER 2017-09-28 14:43 | Inpatient (IN) | payer MEDICARE, OTHER ==
--- NOTE | 2017-09-28 16:26 | ER Document Report ---
ED Medical Screen (RME) - General Chief Complaint: Flu Symptoms Stated Complaint: COUGH Time Seen by Provider: 09/28/17 16:21 Mode of Arrival: Ambulatory Information source: Patient Notes: 76-year-old female presenting to the emergency department today with complaints of flu-like symptoms including cough, sneeze, generalized body aches, fevers, chills, headache, sore throat, and nausea. Patient denies any rashes or vomiting. TRAVEL OUTSIDE OF THE [place] IN LAST 30 DAYS: No - Related Data Allergies/Adverse Reactions: tolterodine tartrate [From [facility]] Allergy (Verified 05/16/17 09:57) Hives Past Medical History - General Information source: Patient - Social History Cigarette use (# per day): No Chew tobacco use (# tins/day): No Frequency of alcohol use: None Drug Abuse: None Lives with: Family Family history: Reviewed & Not Pertinent - Past Medical History Cardiac Medical History: Reports: Hx Hypercholesterolemia, Hx Hypertension Pulmonary Medical History: Reports: Hx Pneumonia Endocrine Medical History: Reports: Hx Diabetes Mellitus Type 1, Hx Diabetes Mellitus Type 2 Renal/ Medical History: Reports: Hx End Stage Renal Disease, Hx Hemodialysis - Did not finish hemodialysis today GI Medical History: Reports: Hx Gastroesophageal Reflux Disease, Hx Irritable Bowel, Hx Ulcer Musculoskeltal Medical History: Reports Hx Arthritis - Osteoarthritis Psychiatric Medical History: Reports: Hx Depression Past Surgical History: Reports: Hx Appendectomy - 01/15/12, Hx Section - x 1, Hx Orthopedic Surgery - left index finer. Denies: Hx Pacemaker, Hx Tonsillectomy - Immunizations Hx Diphtheria, Pertussis, Tetanus Vaccination: Yes History of Influenza Vaccine for 06/2017 - 11/2017 Season: No Review of Systems - Review of Systems Constitutional: See HPI, Chills, Fever EENT: See HPI, Throat pain Respiratory: See HPI, Cough Gastrointestinal: See HPI, Nausea. denies: Vomiting Musculoskeletal: See HPI, Other - generalized body aches Skin: denies: Rash Neurological/Psychological: See HPI, Headaches Physical Exam - Vital signs Vitals: Temp Pulse Resp BP Pulse Ox 100.4 F 90 16 157/119 H 92 09/28/17 15:19 09/28/17 15:19 09/28/17 15:19 09/28/17 15:19 09/28/17 15:19 - HEENT Head: Normocephalic, Atraumatic Eyes: Normal Conjunctiva: Normal Extraocular movements intact: Yes Pupils: PERRL Mucous membranes: Moist Notes: nasal congestion - Respiratory Respiratory status: No respiratory distress Chest status: Nontender Breath sounds: Normal - Cardiovascular Rhythm: Regular Heart sounds: Normal auscultation Murmur: Yes Course - Vital Signs Vital signs: Temp Pulse Resp BP Pulse Ox 100.8 F H 87 18 153/60 H 94 09/28/17 18:00 09/28/17 18:00 09/28/17 18:00 09/28/17 18:00 09/28/17 18:00 - Laboratory Result Diagrams: 09/28/17 17:00 09/28/17 17:00 Laboratory results interpreted by me: 09/28/17 09/28/17 17:00 17:00 MCV 98 H RDW 14.3 H Seg Neutrophils % 83.0 H Lymphocytes % 6.7 L Absolute Lymphocytes 0.4 L Sodium 136.7 L Chloride 97 L BUN 33 H Creatinine 2.77 H Est GFR ( Amer) 20 L Est GFR (Non-Af Amer) 17 L Glucose 242 H Scribe Documentation - Scribe Written by Zeynep:: Zeynep Cullen, 09/28/2017 [id number] acting as scribe for :: Armida
[2017-09-28 16:54] LABS: A TYPE INFLUENZA AG NEGATIVE (NEGATIVE); B INFLUENZA AG NEGATIVE (NEGATIVE)
--- NOTE | 2017-09-28 17:06 | RADIOLOGY REPORT (SQ) ---
EXAM DESCRIPTION: CHEST PA/LAT COMPLETED DATE/TIME: 09/28/2017 4:53 pm REASON FOR STUDY: Fever COMPARISON: 01/17/2012 EXAM PARAMETERS: NUMBER OF VIEWS: two views TECHNIQUE: Digital Frontal and Lateral radiographic views of the chest acquired. RADIATION DOSE: NA LIMITATIONS: none FINDINGS: LUNGS AND PLEURA: No opacities, masses or pneumothorax. No pleural effusion. MEDIASTINUM AND HILAR STRUCTURES: No masses or contour abnormalities. HEART AND VASCULAR STRUCTURES: Heart normal size. No evidence for failure. BONES: No acute findings. HARDWARE: A dual lumen catheter terminates at the root level of the cavoatrial junction. OTHER: No other significant finding. IMPRESSION: Dual lumen catheter without evidence of complication. No evidence of acute cardiopulmon melvin abnormality. TECHNICAL DOCUMENTATION: JOB ID: [id number] [employer]- All Rights Reserved
[2017-09-28 17:18] LABS: ABSOLUTE EOSINOPHILS # (AUTO) 0.1 10^3/uL (0.0-0.6); ABSOLUTE LYMPHOCYTES (AUTO) 0.4 10^3/uL (0.5-4.7); ABSOLUTE MONOCYTES (AUTO) 0.6 10^3/uL (0.1-1.4); ABSOLUTE NEUT (AUTO) 5.6 10^3/uL (1.7-8.2); BASOPHILS % (AUTO) 0.6 % (0-2); EOSINOPHILS % (AUTO) 1.5 % (0-6); HEMATOCRIT 38.1 % (36.0-47.0); HEMOGLOBIN 12.9 g/dL (12.0-15.5); LYMPHOCYTES % (AUTO) 6.7 % (13-45); MEAN CORPUSCULAR HEMOGLOBIN 32.9 pg (27.0-33.4); MEAN CORPUSCULAR HGB CONC 33.8 g/dL (32.0-36.0); MEAN CORPUSCULAR VOLUME 98 fl (80-97); MONOCYTES % (AUTO) 8.2 % (3-13); PLATELET COUNT 267 10^3/uL (150-450); RED CELL DISTRIBUTION WIDTH 14.3 % (11.5-14.0); TOTAL CELLS COUNTED % (AUTO) 100 %; WHITE BLOOD COUNT 6.8 10^3/uL (4.0-10.5)
[2017-09-28 17:35] LABS: ANION GAP 12 (5-19); BLOOD UREA NITROGEN 33 mg/dL (7-20); CALCIUM 9.1 mg/dL (8.4-10.2); CARBON DIOXIDE 28 mmol/L (22-30); CHLORIDE 97 mmol/L (98-107); GLUCOSE 242 mg/dL (75-110); POTASSIUM 4.3 mmol/L (3.6-5.0); SODIUM 136.7 mmol/L (137-145)
[2017-09-28] MEDS ORDERED: LEVOFLOXACIN 750 MG/D5W RTU 750 MG/150 ML RTUPB IV ONE (19:27)
[2017-09-28] MEDS ORDERED: ACETAMINOPHEN 325 MG TABLET PO ONE (19:27)
[2017-09-28] MEDS ORDERED: IPRATROPIUM/ALBUTEROL 0.5-2.5 MG/3 ML AMPUL NEB PRN (19:28)
[2017-09-28] MEDS ORDERED: GLUCAGON,HUMAN RECOMB 1 MG INJ IM PRN (19:28)
[2017-09-28] MEDS ORDERED: DEXTROSE 40% GEL 15 GM TUBE PO PRN ×2 (19:28)
[2017-09-28] MEDS ORDERED: NORMAL SALINE 1000 ML 500 ML IV ONE (19:28)
[2017-09-28] MEDS ORDERED: GUAIFENESIN SYRP 200 MG/10 ML UDC PO PRN (19:28)
[2017-09-28] MEDS ORDERED: ACETAMINOPHEN 325 MG TABLET PO PRN (19:28)
[2017-09-28] MEDS ORDERED: DEXTROSE 50%-WATER 25 GM/50 ML DISP.SYRIN IV PRN ×2 (19:28)
--- NOTE | 2017-09-28 19:32 | ER Document Report ---
ED General - General Chief Complaint: Flu Symptoms Stated Complaint: COUGH Time Seen by Provider: 09/28/17 16:21 Mode of Arrival: Ambulatory Notes: Patient is a 76 year old female, chronic kidney disease with dialysis dependence , hypertension, hyperlipidemia, who presents with fever, vomiting, shortness of breath and cough. Apparently while at dialysis today the patient spiked a fever , had an episode of vomiting and appeared short of breath. She also had persistent coughing. Patient states this feels very similar to when she has had pneumonia in the past. Nothing seems to improve or worsen her symptoms. At time of my assessment she is shaking vigorously, states she feels very cold and generally unwell. She has not seen her primary doctor regarding today's concerns that she was transported directly from dialysis to the emergency department by EMS. TRAVEL OUTSIDE OF THE [place] IN LAST 30 DAYS: No - Related Data Allergies/Adverse Reactions: tolterodine tartrate [From [facility]] Allergy (Verified 05/16/17 09:57) Hives Past Medical History - General Information source: Patient - Social History Smoking Status: Former Smoker Cigarette use (# per day): No Chew tobacco use (# tins/day): No Frequency of alcohol use: None Drug Abuse: None Lives with: Family Family History: Reviewed & Not Pertinent Patient has suicidal ideation: No Patient has homicidal ideation: No - Past Medical History Cardiac Medical History: Reports: Hx Hypercholesterolemia, Hx Hypertension Denies: Hx Atrial Fibrillation, Hx Congestive Heart Failure, Hx Coronary Artery Disease, Hx Heart Attack, Hx Peripheral Vascular Disease, Hx Heart Murmur Pulmonary Medical History: Reports: Hx Pneumonia Denies: Hx Asthma - EXERTIONAL BECOMES SOB, Hx Bronchitis, Hx COPD, Hx Tuberculosis Neurological Medical History: Denies: Hx Cerebrovascular Accident, Hx Seizures Endocrine Medical History: Reports: Hx Diabetes Mellitus Type 1, Hx Diabetes Mellitus Type 2 Renal/ Medical History: Reports: Hx End Stage Renal Disease, Hx Hemodialysis - Did not finish hemodialysis today, Hx Peritoneal Dialysis - Did not finish hemodialysis today GI Medical History: Reports: Hx Gastroesophageal Reflux Disease, Hx Irritable Bowel, Hx Ulcer Musculoskeltal Medical History: Reports Hx Arthritis - Osteoarthritis Psychiatric Medical History: Reports: Hx Depression Past Surgical History: Reports: Hx Appendectomy - 01/15/12, Hx Section - x 1, Hx Orthopedic Surgery - left index finer. Denies: Hx Pacemaker, Hx Tonsillectomy - Immunizations Hx Diphtheria, Pertussis, Tetanus Vaccination: Yes Review of Systems - Review of Systems Notes: Constitutional: Positive for fever. HENT: Negative for sore throat. Eyes: Negative for visual changes. Cardiovascular: Negative for chest pain. Respiratory: Negative for shortness of breath. Positive for cough Gastrointestinal: Negative for abdominal pain, positive for vomiting Genitourinary: Negative for dysuria. Musculoskeletal: Negative for back pain. Skin: Negative for rash. Neurological: Negative for headaches, weakness or numbness. 10 point ROS negative except as marked above and in HPI. Physical Exam - Vital signs Vitals: Temp Pulse Resp BP Pulse Ox 100.4 F 90 16 157/119 H 92 09/28/17 15:19 09/28/17 15:19 09/28/17 15:19 09/28/17 15:19 09/28/17 15:19 Interpretation: Febrile Notes: PHYSICAL EXAMINATION: GENERAL: Appears unwell, shaking but in no acute distress HEAD: Atraumatic, normocephalic. EYES: Pupils equal round and reactive to light, extraocular movements intact, sclera anicteric, conjunctiva are normal. ENT: nares patent, oropharynx clear without exudates. Moderately dry mucous membranes. NECK: Normal range of motion, supple without lymphadenopathy LUNGS: Breath sounds clear to auscultation bilaterally and equal. No wheezes rales or rhonchi. HEART: Regular tachycardia without murmurs ABDOMEN: Soft, nontender, normoactive bowel sounds. No guarding, no rebound. No masses appreciated. EXTREMITIES: Normal range of motion, no pitting or edema. No cyanosis. NEUROLOGICAL: No focal neurological deficits. Moves all extremities spontaneously and on command. PSYCH: Normal mood, normal affect. SKIN: Warm, Dry, normal turgor, no rashes or lesions noted. Course - Re-evaluation Re-evalutation: 09/28/17 19:28 Patient presents with signs and symptoms most concerning for acute pneumonia. Patient was febrile to 101.7 at dialysis and remains febrile here in the emergency department at 100.8. Initial pulse oximetry readings were 91% on EMS arrival at the [facility]. 92% here in the emergency department on room air. Patient was seen here in July 2017 and was 100% on room air at that time. On assessment, patient is ill in appearance, actively having rigors, and coughing vigorously. Lung sounds are rhonchorous throughout, diminished at the left base more prominently than the right. Laboratories show some findings consistent with chronic kidney disease but otherwise overall unremarkable. Lactate unremarkable. However, given patient's dialysis dependence, age, borderline hypoxemia, and ill appearance I do not believe she is safe for discharge. Although her chest x-ray is negative, the sensitivity of the chest x -ray for an acute pneumonia is only 70% and anticipate clinically that she does have pneumonia. Influenza testing is negative although this would be an alternative concern. I discussed this case with Dr. Swanson who is accepted the patient for admission. I started the patient IV levofloxacin, provided Tylenol for antipyretic, and will provide gentle rehydration as patient has had multiple episodes of vomiting. - Vital Signs Vital signs: Temp Pulse Resp BP Pulse Ox 100.8 F H 86 16 179/66 H 97 09/28/17 18:00 09/29/17 02:35 09/29/17 02:35 09/29/17 02:01 09/29/17 02:01 - Laboratory Result Diagrams: 09/28/17 17:00 09/28/17 17:00 Laboratory results interpreted by me: 09/28/17 09/28/17 09/28/17 17:00 17:00 17:00 MCV 98 H RDW 14.3 H Seg Neutrophils % 83.0 H Lymphocytes % 6.7 L Absolute Lymphocytes 0.4 L Sodium 136.7 L Chloride 97 L BUN 33 H Creatinine 2.77 H Est GFR ( Amer) 20 L Est GFR (Non-Af Amer) 17 L Glucose 242 H Creatine Kinase 1088 H - Diagnostic Test Radiology reviewed: Image reviewed, Reports reviewed Radiology results interpreted by me: 09/28/17 19:31 Chest x-ray: Possible patchy infiltrate at the left base Discharge - Discharge Clinical Impression: Sepsis Qualifiers: Sepsis type: sepsis due to unspecified organism Qualified Code(s): A41.9 - Sepsis, unspecified organism Pneumonia Qualifiers: Pneumonia type: due to unspecified organism Laterality: unspecified laterality Lung location: unspecified part of lung Qualified Code(s): J18.9 - Pneumonia, unspecified organism Nausea and vomiting Qualifiers: Vomiting type: unspecified Vomiting Intractability: non-intractable Qualified Code(s): R11.2 - Nausea with vomiting, unspecified Condition: Fair Disposition: ADMITTED INPATIENT Admitting Provider: [facility] Admitted: [facility]
[2017-09-28] MEDS ORDERED: HYDRALAZINE HCL INJ/PF 20 MG/1 ML SDV IV PRN (19:33)
[2017-09-28] MEDS ORDERED: AZITHROMYCIN 500 MG in DEXTROSE 5%-WATER 250 ML IV SCH (20:00)
[2017-09-28 20:20] LABS: CREATINE KINASE MB 2.32 ng/mL (<4.55); TROPONIN I 0.017 ng/mL
[2017-09-28] MEDS ORDERED: FLUTICASONE NASAL SPRAY 50 MCG/SPRY 120 SPRAY/16 GM NASL ONE (20:30)
[2017-09-28] MEDS ORDERED: CHLORPHENIRAMINE MALEATE 4 MG TABLET PO ONE (20:30)
[2017-09-28] MEDS: IPRATROPIUM/ALBUTEROL 0.5-2.5 MG/3 ML AMPUL NEB SCH (21:11)
[2017-09-28] MEDS: HEPARIN SOD (PORCINE) 5,000 UNIT/ML 1 ML SYRINGE SUBCUT SCH (21:14)
[2017-09-28] MEDS: GUAIFENESIN 600 MG TABLET.SA PO SCH (21:14)
[2017-09-28] MEDS ORDERED: FLUTICASONE NASAL SPRAY 50 MCG/SPRY 120 SPRAY/16 GM ONE (21:44)
[2017-09-28] MEDS ORDERED: CHLORPHENIRAMINE MALEATE 4 MG TABLET ONE (21:44)
[2017-09-28] MEDS ORDERED: CEFTRIAXONE INJ 1000 MG VIAL ONE (21:44)
[2017-09-28] MEDS ORDERED: CEFTRIAXONE 1 GM/D5W RTU 1 GM/50 ML RTUPB IV SCH (22:00)
[2017-09-28] MEDS: INSULIN LISPRO 100 UNIT/ML 3 ML VIAL SUBCUT PRN (22:33)
[2017-09-29] MEDS: IPRATROPIUM/ALBUTEROL 0.5-2.5 MG/3 ML AMPUL NEB SCH ×4 (02:32→20:21)
[2017-09-29 03:11] LABS: CREATINE KINASE MB 1.15 ng/mL (<4.55)
[2017-09-29 03:18] LABS: TROPONIN I 0.045 ng/mL
[2017-09-29] MEDS: HEPARIN SOD (PORCINE) 5,000 UNIT/ML 1 ML SYRINGE SUBCUT SCH ×3 (05:25→22:11)
--- NOTE | 2017-09-29 05:34 | PDOC H&P ---
History of Present Illness Admission Date/PCP: 09/28/17 19:47 Patient complains of: Shortness of breath and rigors History of Present Illness: YAHAIRA MCKEON is a 76 year old female with a past medical history of chronic kidney disease on hemodialysis Saturday, hypertension, dyslipidemia and diabetes. Patient presents with 6 hours of shortness of breath , nonproductive cough, fever and rigors which limited her hemodialysis to 2 hours today. In the emergency room she is found to have a fever of 100.8, oxygen saturation of 90% on room air, Reiger's and rhonchi. She denies infectious contacts, influenza or pneumonia vaccinations or recent antibiotics. She is negative for influenza and started on empiric antibiotics for pneumonia. She denies chest pain. Past Medical History Cardiac Medical History: Reports: Hyperlipidema, Hypertension Denies: Atrial Fibrillation, Congestive Heart Failure, Coronary Artery Disease, Myocardial Infarction, Peripheral Vascular Disease, Heart Murmur Pulmonary Medical History: Reports: Pneumonia Denies: Asthma - EXERTIONAL BECOMES SOB, Bronchitis, Chronic Obstructive Pulmonary Disease (COPD), Tuberculosis Neurological Medical History: Denies: Seizures Endocrine Medical History: Reports: Diabetes Mellitus Type 1, Diabetes Mellitus Type 2 Renal/ Medical History: Reports: End Stage Renal Disease GI Medical History: Reports: Gastroesophageal Reflux Disease Musculoskeltal Medical History: Reports: Arthritis - Osteoarthritis Psychiatric Medical History: Reports: Depression Hematology: Reports: Anemia - Iron Deficiency Past Surgical History Past Surgical History: Reports: Appendectomy - 01/15/12, Section - x 1, Orthopedic Surgery - left index finer Denies: Pacemaker, Tonsillectomy Social History Information Source: Patient, [facility] Records Lives with: Family Smoking Status: Former Smoker Hx Recreational Drug Use: No Drugs: None Hx Prescription Drug Abuse: No - Advance Directive Resuscitation Status: Full Code Family History Family History: COPD Parental Family History Reviewed: Yes Children Family History Reviewed: Yes Sibling(s) Family History Reviewed.: Yes Medication/Allergy Home Medications: Amlodipine Besylate [Norvasc 10 mg Tablet] 10 mg PO DAILY 05/27/17 Ascorbic Acid [Vitamin C 500 mg Tablet] 500 mg PO BID 05/27/17 Aspirin [Aspirin EC] 81 mg PO DAILY 05/27/17 Atorvastatin Calcium [Lipitor 40 mg Tablet] 40 mg PO QHS 05/27/17 Carvedilol [Coreg 25 mg Tablet] 1 tab PO DAILY 05/27/17 Cholecalciferol (Vitamin D3) [Vitamin D3] 5,000 unit PO DAILY 05/27/17 Clonidine [Catapres-Tts 3 (0.3 mg/24 Hr) Transderm Patch] 1 patch TD GOMEZ@1000 Doxazosin Mesylate [Cardura 1 mg Tablet] 1 mg PO DAILY 05/27/17 Fenofibrate Nanocrystallized [Tricor 145 mg Tablet] 145 mg PO DAILY 05/27/17 Ferrous Sulfate [Feosol 325 mg Tablet] 325 mg PO BID 05/27/17 Furosemide [Lasix 40 mg Tablet] 40 mg PO DAILY 05/27/17 Gluc Gomez/Chondro Gomez A/Vit C/Mn [Glucosamine 1,500 Complex Cap] 1 each PO DAILY Hydralazine HCl 100 mg PO Q12 05/27/17 Insulin Aspart Protam & Aspart [Novolog Mix 70-30 Vial] 0 unit SQ .SLIDING SCALE 05/27/17 Levothyroxine Sodium [Synthroid 0.025 mg Tablet] 25 mcg PO DAILY 05/27/17 Lisinopril [Prinivil 40 mg Tablet] 20 mg PO Q12 05/27/17 Naproxen Sod/Diphenhydramine [Aleve Pm Caplet] 1 each PO HSP 05/27/17 Stuart-3 Fatty Acids/Fish Oil [Stuart-3 1,000 mg Softgel] 1 each PO DAILY B Complex W-C No.20/Folic Acid [Renal Caps Softgel] 1 mg PO DAILY 08/07/17 Allergies/Adverse Reactions: tolterodine tartrate [From [facility]] Allergy (Verified 05/16/17 09:57) Hives Review of Systems Constitutional: PRESENT: as per HPI, fatigue, fever(s). ABSENT: chills, headache(s), weight gain, weight loss Eyes: ABSENT: visual disturbances Ears: ABSENT: hearing changes Cardiovascular: PRESENT: dyspnea on exertion. ABSENT: chest pain, edema, orthropnea, palpitations Respiratory: PRESENT: as per HPI, cough, dyspnea, sputum. ABSENT: hemoptysis Gastrointestinal: ABSENT: abdominal pain, constipation, diarrhea, hematemesis, hematochezia, nausea, vomiting Genitourinary: ABSENT: dysuria, hematuria Musculoskeletal: ABSENT: joint swelling Integumentary: ABSENT: rash, wounds Neurological: ABSENT: abnormal gait, abnormal speech, confusion, dizziness, focal weakness, syncope Psychiatric: ABSENT: anxiety, depression, homidical ideation, suicidal ideation Endocrine: ABSENT: cold intolerance, heat intolerance, polydipsia, polyuria Hematologic/Lymphatic: ABSENT: easy bleeding, easy bruising Physical Exam Vital Signs: Temp Pulse Resp BP Pulse Ox 100.8 F H 86 23 H 152/46 H 99 09/28/17 18:00 09/29/17 02:35 09/29/17 04:00 09/29/17 03:31 09/29/17 04:00 General appearance: PRESENT: cooperative, obese, severe distress Head exam: PRESENT: atraumatic, normocephalic Eye exam: PRESENT: conjunctiva pink, EOMI, PERRLA. ABSENT: scleral icterus Ear exam: PRESENT: normal external ear exam Mouth exam: PRESENT: moist, tongue midline Neck exam: ABSENT: carotid bruit, JVD, lymphadenopathy, thyromegaly Respiratory exam: PRESENT: accessory muscle use, crackles, prolonged expiratory phas, rales, retraction, rhonchi, tachypnea Cardiovascular exam: PRESENT: RRR, tachycardia. ABSENT: diastolic murmur, rubs , systolic murmur Pulses: PRESENT: normal carotid pulses Vascular exam: PRESENT: normal capillary refill GI/Abdominal exam: PRESENT: normal bowel sounds, soft. ABSENT: distended, guarding, mass, organolmegaly, rebound, tenderness Rectal exam: PRESENT: deferred Extremities exam: PRESENT: full ROM. ABSENT: calf tenderness, clubbing, pedal edema Neurological exam: PRESENT: alert, awake, oriented to person, oriented to place , oriented to time, oriented to situation, CN II-XII grossly intact. ABSENT: motor sensory deficit Psychiatric exam: PRESENT: appropriate affect, normal mood. ABSENT: homicidal ideation, suicidal ideation Skin exam: PRESENT: dry, intact, warm. ABSENT: cyanosis, rash Results Laboratory Results: 09/29/17 09/29/17 01:51 01:51 Creatine Kinase 1010 H CK-MB (CK-2) 1.15 Troponin I 0.045 Impressions: Chest X-Ray 09/28/17 16:27 IMPRESSION: Dual lumen catheter without evidence of complication. No evidence of acute cardiopulmonary abnormality. Assessment & Plan - Diagnosis (1) Pneumonia Qualifiers: Pneumonia type: due to unspecified organism Laterality: unspecified laterality Lung location: unspecified part of lung Qualified Code(s): J18.9 - Pneumonia, unspecified organism Is this a current diagnosis for this admission?: Yes Plan: Telemetry bed, pneumonia care set, concern for influenza will initiate Tamiflu in addition to coverage for community-acquired pneumonia. Albuterol, Atrovent, incentive spirometry, follow-up blood culture (2) Nausea and vomiting Qualifiers: Vomiting type: unspecified Vomiting Intractability: non-intractable Qualified Code(s): R11.2 - Nausea with vomiting, unspecified Is this a current diagnosis for this admission?: Yes Plan: Secondary to pneumonia, symptomatic management and supportive care (3) Sepsis Qualifiers: Sepsis type: sepsis due to unspecified organism Qualified Code(s): A41.9 - Sepsis, unspecified organism Is this a current diagnosis for this admission?: Yes Plan: Secondary to #1, does not appear volume overloaded may tolerate judicious IV fluid as needed as she is nonoliguric. (4) End-stage renal disease on hemodialysis Is this a current diagnosis for this admission?: Yes Plan: Nonoliguric, IV fluid as needed, consult nephrology Dr. Zheng for hemodialysis needs. Otherwise avoid nephrotoxic meds and doses. - Time Time Spent: 50 to 70 Minutes - Inpatient Certification Medical Necessity: Need Close Monitoring Due to Risk of Patient Decompensation
[2017-09-29] MEDS ORDERED: OSELTAMIVIR PHOSPHATE 75 MG CAPSULE PO SCH (06:00)
[2017-09-29 07:08] LABS: HEMATOCRIT 34.2 % (36.0-47.0); HEMOGLOBIN 11.5 g/dL (12.0-15.5); MEAN CORPUSCULAR HEMOGLOBIN 32.4 pg (27.0-33.4); MEAN CORPUSCULAR HGB CONC 33.5 g/dL (32.0-36.0); MEAN CORPUSCULAR VOLUME 97 fl (80-97); PLATELET COUNT 218 10^3/uL (150-450); RED BLOOD COUNT 3.54 10^6/uL (3.72-5.28); RED CELL DISTRIBUTION WIDTH 14.2 % (11.5-14.0); WHITE BLOOD COUNT 5.6 10^3/uL (4.0-10.5)
[2017-09-29 07:29] LABS: ANION GAP 9 (5-19); BLOOD UREA NITROGEN 41 mg/dL (7-20); CALCIUM 8.3 mg/dL (8.4-10.2); CARBON DIOXIDE 27 mmol/L (22-30); CHLORIDE 101 mmol/L (98-107); CREATINE KINASE 904 U/L (30-135); GLUCOSE 186 mg/dL (75-110); POTASSIUM 4.2 mmol/L (3.6-5.0)
[2017-09-29 07:37] LABS: CREATINE KINASE MB 1.04 ng/mL (<4.55); TROPONIN I 0.048 ng/mL
[2017-09-29] MEDS: INSULIN LISPRO 100 UNIT/ML 3 ML VIAL SUBCUT PRN ×2 (07:51→20:33)
[2017-09-29 07:56] LABS: ABSOLUTE LYMPHOCYTES# (MANUAL) 0.7 10^3/uL (0.5-4.7); ABSOLUTE MONOCYTES # (MANUAL) 0.6 10^3/uL (0.1-1.4); ABSOLUTE NEUTROPHILS# (MANUAL) 4.4 10^3/uL (1.7-8.2); BAND NEUTROPHILS % (MANUAL) 3 % (3-5); BASOPHILS % (MANUAL) 0 % (0-2); EOSINOPHILS % (MANUAL) 0 % (0-6); LYMPHOCYTES % (MANUAL) 8 % (13-45); MONOCYTES % (MANUAL) 10 % (3-13); SEGMENTED NEUTROPHILS % (MAN) 75 % (42-78); TOTAL CELLS COUNTED 100
[2017-09-29 07:57] LABS: HYPOCHROMASIA SLIGHT; PLATELET COMMENT ADEQUATE
[2017-09-29] MEDS ORDERED: BUTALB/ACETAMINOPHEN/CAFFEINE 1 TAB EACH PO ONE (09:20)
[2017-09-29] MEDS ORDERED: ACETAMINOPHEN 325 MG TABLET PO PRN (09:20)
[2017-09-29] MEDS ORDERED: VANCOMYCIN HCL 0 MG in DEXTROSE 5%-WATER 250 ML IV NR (09:30)
--- NOTE | 2017-09-29 10:13 | RADIOLOGY REPORT (SQ) ---
EXAM DESCRIPTION: CT HEAD WITHOUT COMPLETED DATE/TIME: 09/29/2017 10:01 am REASON FOR STUDY: worst headache of her life COMPARISON: None. TECHNIQUE: Axial images acquired through the brain without intravenous contrast. Images reviewed wi th bone, brain and subdural windows. Images stored on PACS. LIMITATIONS: None. FINDINGS: VENTRICLES: Normal size and contour. CEREBRUM: No masses. No hemorrhage. No midline shift. Normal landin/white matter differentiation. N o evidence for acute infarction. Relatively symmetric calcifications involving the basal ganglia rig ht and left thalamus. CEREBELLUM: No masses. No hemorrhage. No alteration of density. No evidence for acute infarction. Symmetric calcifications. EXTRAAXIAL SPACES: No fluid collections. No masses. ORBITS AND GLOBE: No intra- or extraconal masses. Normal contour of globe without masses. CALVARIUM: No fracture. PARANASAL SINUSES: No fluid or mucosal thickening. SOFT TISSUES: No mass or hematoma. OTHER: No other significant finding. IMPRESSION: NO CT EVIDENCE OF ACUTE ISCHEMIA, HEMORRHAGE, OR MASS LESION. SYMMETRIC CALCIFICATIONS INVOLVING THE BASAL GANGLIA, THALAMUS, AND CEREBELLUM WHICH IS NONSPECIFIC IN BEGINS SECONDARY TO MET ABOLIC DISORDERS, DEGENERATIVE PROCESS, OR PHYSIOLOGIC. CORRELATE WITH PATIENT'S CLINICAL HISTORY. COMMENT: WAS EXAM PERFORMED WITHIN 24 HOURS UPON ARRIVAL TO FACILITY? Yes. TECHNICAL DOCUMENTATION: JOB ID: [id number]
[2017-09-29 10:33] LABS: HEMOGLOBIN 11.3 g/dL (12.0-15.5); MEAN CORPUSCULAR HEMOGLOBIN 32.4 pg (27.0-33.4); MEAN CORPUSCULAR HGB CONC 33.3 g/dL (32.0-36.0); MEAN CORPUSCULAR VOLUME 97 fl (80-97); PLATELET COUNT 206 10^3/uL (150-450); RED BLOOD COUNT 3.49 10^6/uL (3.72-5.28); RED CELL DISTRIBUTION WIDTH 14.3 % (11.5-14.0); WHITE BLOOD COUNT 5.6 10^3/uL (4.0-10.5)
[2017-09-29] MEDS: GUAIFENESIN 600 MG TABLET.SA PO SCH ×2 (10:34→22:13)
[2017-09-29] MEDS: FLUTICASONE NASAL SPRAY 50 MCG/SPRY 120 SPRAY/16 GM NASL SCH ×2 (10:36→22:15)
[2017-09-29] MEDS ORDERED: VANCOMYCIN HCL 1,500 MG in DEXTROSE 5%-WATER 250 ML IV ONE (11:00)
[2017-09-29] MEDS ORDERED: PIPERACILLIN SODIUM/TAZOBACTAM 3.375 GM in NORMAL SALINE 100 ML IV SCH (12:00)
[2017-09-29] MEDS: PIPERACILLIN SODIUM/TAZOBACTAM 2.25 GM in NORMAL SALINE 50 ML IV SCH ×2 (15:01→22:15)
[2017-09-29] MEDS: BUTALB/ACETAMINOPHEN/CAFFEINE 1 TAB EACH PO PRN ×2 (16:49→22:45)
--- NOTE | 2017-09-29 17:04 | PDOC PROGRESS REPORT ---
Subjective Progress Note for:: 09/29/17 Subjective:: The patient is resting in her bed. She states that she is feeling horrible this morning. She is having frequent sharp stabbing pains in the side of her head and states that this is the worst headache that she has ever had in her life. She states that Tylenol is not helping. She states that she still is having a significant cough and overall feels just miserable. Dr. Zheng has been consulted as the patient is in end-stage renal disease dialysis patient. She usually is dialyzed on Saturday and Saturday. The patient has nausea but has had no vomiting this morning. No abdominal pain. She has not had a bowel movement yet today. Reason For Visit: ESRD,PNEUMONIA,DIABETES Physical Exam Vital Signs: Temp Pulse Resp BP Pulse Ox 100.8 F H 83 20 152/46 H 96 09/28/17 18:00 09/29/17 14:28 09/29/17 14:28 09/29/17 03:31 09/29/17 14:28 General appearance: PRESENT: mild distress, thin, other - Appears acutely ill Head exam: PRESENT: atraumatic, normocephalic Mouth exam: PRESENT: moist, tongue midline Respiratory exam: PRESENT: other - She has scattered coarse breath sounds bilaterally Cardiovascular exam: PRESENT: RRR. ABSENT: diastolic murmur, rubs, systolic murmur GI/Abdominal exam: PRESENT: normal bowel sounds, soft. ABSENT: distended, guarding, mass, organolmegaly, rebound, tenderness Rectal exam: PRESENT: deferred Extremities exam: PRESENT: full ROM. ABSENT: calf tenderness, clubbing, pedal edema Neurological exam: PRESENT: alert, awake, oriented to person, oriented to place , oriented to time, oriented to situation, CN II-XII grossly intact. ABSENT: motor sensory deficit Psychiatric exam: PRESENT: anxious Skin exam: PRESENT: dry, intact, warm. ABSENT: cyanosis, rash Results Laboratory Results: 09/29/17 10:20 09/29/17 06:45 09/29/17 09/29/17 09/29/17 06:45 06:45 10:20 WBC 5.6 5.6 RBC 3.54 L 3.49 L Hgb 11.5 L 11.3 L Hct 34.2 L 34.0 L MCV 97 97 MCH 32.4 32.4 MCHC 33.5 33.3 RDW 14.2 H 14.3 H Plt Count 218 206 Seg Neutrophils % Not Reportable Lymphocytes % Not Reportable Monocytes % Not Reportable Eosinophils % Not Reportable Basophils % Not Reportable Absolute Neutrophils Not Reportable Absolute Lymphocytes Not Reportable Absolute Monocytes Not Reportable Absolute Eosinophils Not Reportable Absolute Basophils Not Reportable Sodium 137.0 Potassium 4.2 Chloride 101 Carbon Dioxide 27 Anion Gap 9 BUN 41 H Creatinine 3.36 H Est GFR ( Amer) 16 L Est GFR (Non-Af Amer) 13 L Glucose 186 H Calcium 8.3 L 09/29/17 09/29/17 09/29/17 01:51 01:51 06:45 Creatine Kinase 1010 H 904 H CK-MB (CK-2) 1.15 Troponin I 0.045 09/29/17 06:45 Creatine Kinase CK-MB (CK-2) 1.04 Troponin I 0.048 Impressions: Chest X-Ray 09/28/17 16:27 IMPRESSION: Dual lumen catheter without evidence of complication. No evidence of acute cardiopulmonary abnormality. Head CT 09/29/17 00:00 IMPRESSION: NO CT EVIDENCE OF ACUTE ISCHEMIA, HEMORRHAGE, OR MASS LESION. SYMMETRIC CALCIFICATIONS INVOLVING THE BASAL GANGLIA, THALAMUS, AND CEREBELLUM WHICH IS NONSPECIFIC IN BEGINS SECONDARY TO METABOLIC DISORDERS, DEGENERATIVE PROCESS, OR PHYSIOLOGIC. CORRELATE WITH PATIENT'S CLINICAL HISTORY. Assessment & Plan - Diagnosis (1) Pneumonia Qualifiers: Pneumonia type: due to unspecified organism Laterality: unspecified laterality Lung location: unspecified part of lung Qualified Code(s): J18.9 - Pneumonia, unspecified organism Is this a current diagnosis for this admission?: Yes Plan: Concerns for gram negatives and MRSA. She is a dialysis patient with frequent healthcare exposure. She has been started on IV vancomycin and Zosyn. This is the first full day of treatment. (2) Severe headache Is this a current diagnosis for this admission?: Yes Plan: I obtained a stat CT scan of the brain which was unremarkable. She has been given Fioricet today with some relief. She can continue that for now. Her headache is likely due to her acute illness. (3) End-stage renal disease on hemodialysis Is this a current diagnosis for this admission?: Yes Plan: Her metal cut off saw operator has been consulted. I see no need for urgent dialysis at the moment. She does not have a metabolic acidosis and her potassium level was normal. We will check labs in the morning. (4) Nausea and vomiting Qualifiers: Vomiting type: unspecified Vomiting Intractability: non-intractable Qualified Code(s): R11.2 - Nausea with vomiting, unspecified Is this a current diagnosis for this admission?: Yes Plan: She is a little nauseated but is not having any episodes of vomiting this morning. Likely due to her underlying pneumonia and acute illness. (5) Diabetes Is this a current diagnosis for this admission?: Yes Plan: Continue sliding-scale coverage here in the hospital. (6) Hypertension Is this a current diagnosis for this admission?: Yes Plan: Her blood pressure medications were held at the time of admission. We will restart her back on everything but her hydralazine and Lasix today. Her blood pressure is quite high this afternoon. (7) Dyslipidemia Is this a current diagnosis for this admission?: Yes Plan: Her statin medication will be restarted (8) Anemia Is this a current diagnosis for this admission?: Yes Plan: She has a mild anemia likely secondary to chronic disease. She will have a CBC drawn in the morning (9) Full code status Is this a current diagnosis for this admission?: Yes - Time Time Spent with patient: 25-34 minutes - Inpatient Certification Medical Necessity: Other - Inpatient hospitalization remains necessary. The patient has pneumonia and is requiring parenteral therapies. She needs evaluation by nephrology. She is at high risk of decompensation due to her end- stage renal disease and for now inpatient hospitalization is necessary.
[2017-09-29] MEDS: AMLODIPINE BESYLATE 10 MG TABLET PO SCH (19:29)
[2017-09-29] MEDS: ASCORBIC ACID 500 MG TABLET PO SCH (19:30)
[2017-09-29] MEDS ORDERED: MELATONIN 2 MG PO SCH (22:00)
[2017-09-29] MEDS: CARVEDILOL 12.5 MG TABLET PO SCH (22:13)
[2017-09-30] MEDS: IPRATROPIUM/ALBUTEROL 0.5-2.5 MG/3 ML AMPUL NEB SCH ×4 (02:07→21:04)
[2017-09-30] MEDS ORDERED: NORMAL SALINE 1000 ML 1,000 ML IV PRN (05:00)
[2017-09-30 05:06] LABS: ABSOLUTE MONOCYTES (AUTO) 0.6 10^3/uL (0.1-1.4); ABSOLUTE NEUT (AUTO) 4.2 10^3/uL (1.7-8.2); BASOPHILS % (AUTO) 0.6 % (0-2); EOSINOPHILS % (AUTO) 0.1 % (0-6); HEMATOCRIT 32.8 % (36.0-47.0); HEMOGLOBIN 11.1 g/dL (12.0-15.5); LYMPHOCYTES % (AUTO) 17.7 % (13-45); MEAN CORPUSCULAR HEMOGLOBIN 32.4 pg (27.0-33.4); MEAN CORPUSCULAR HGB CONC 33.9 g/dL (32.0-36.0); MEAN CORPUSCULAR VOLUME 96 fl (80-97); MONOCYTES % (AUTO) 9.9 % (3-13); PLATELET COUNT 186 10^3/uL (150-450); RED BLOOD COUNT 3.43 10^6/uL (3.72-5.28); RED CELL DISTRIBUTION WIDTH 13.8 % (11.5-14.0); SEGMENTED NEUTROPHILS % (AUTO) 71.7 % (42-78); TOTAL CELLS COUNTED % (AUTO) 100 %; WHITE BLOOD COUNT 5.8 10^3/uL (4.0-10.5)
[2017-09-30] MEDS: HEPARIN SOD (PORCINE) 5,000 UNIT/ML 1 ML SYRINGE SUBCUT SCH ×3 (05:29→22:21)
[2017-09-30] MEDS: BUTALB/ACETAMINOPHEN/CAFFEINE 1 TAB EACH PO PRN (05:31)
[2017-09-30] MEDS: PIPERACILLIN SODIUM/TAZOBACTAM 2.25 GM in NORMAL SALINE 50 ML IV SCH ×3 (05:33→22:05)
[2017-09-30 05:46] LABS: ANION GAP 13 (5-19); BLOOD UREA NITROGEN 59 mg/dL (7-20); CALCIUM 8.3 mg/dL (8.4-10.2); CARBON DIOXIDE 24 mmol/L (22-30); CHLORIDE 98 mmol/L (98-107); GLUCOSE 299 mg/dL (75-110); MAGNESIUM 1.8 mg/dL (1.6-2.3); POTASSIUM 4.4 mmol/L (3.6-5.0); SODIUM 134.6 mmol/L (137-145)
[2017-09-30] MEDS ORDERED: LEVOTHYROXINE SODIUM 0.025 MG TABLET PO SCH (06:00)
[2017-09-30] MEDS: INSULIN LISPRO 100 UNIT/ML 3 ML VIAL SUBCUT PRN ×3 (08:35→22:17)
--- NOTE | 2017-09-30 09:12 | PDOC PROGRESS REPORT ---
Subjective Progress Note for:: 09/30/17 Subjective:: Patient is seen on rounds. She is awake, alert and oriented x 3. She states she is feeling much better than yesterday. She slept well last night. She denies any shortness of breath, dyspnea or chest pain at rest. Her cough is mostly nonproductive. She denies any fevers or chills overnight. She denies any nausea , vomiting or diarrhea. Her headache has resolved. Remaining review of systems are negative. She is going to be dialyzed today. Reason For Visit: ESRD,PNEUMONIA,DIABETES Physical Exam Vital Signs: Temp Pulse Resp BP Pulse Ox 99.1 F 84 18 145/44 H 96 09/30/17 06:45 09/30/17 08:08 09/30/17 08:08 09/30/17 07:01 09/30/17 08:08 General appearance: PRESENT: no acute distress, thin, well-developed, well- nourished Head exam: PRESENT: atraumatic, normocephalic Eye exam: PRESENT: conjunctiva pink, EOMI, PERRLA. ABSENT: scleral icterus Ear exam: PRESENT: normal external ear exam Mouth exam: PRESENT: moist, tongue midline Neck exam: ABSENT: carotid bruit, JVD, lymphadenopathy, thyromegaly Respiratory exam: PRESENT: decreased breath sounds - bilateral bases, symmetrical, unlabored Cardiovascular exam: PRESENT: RRR. ABSENT: diastolic murmur, rubs, systolic murmur Pulses: PRESENT: normal dorsalis pedis pul Vascular exam: PRESENT: normal capillary refill GI/Abdominal exam: PRESENT: normal bowel sounds, soft. ABSENT: distended, guarding, mass, organolmegaly, rebound, tenderness Rectal exam: PRESENT: deferred Extremities exam: PRESENT: full ROM - bilateral pedal to mid calf, +1 edema Musculoskeletal exam: PRESENT: ambulatory, full ROM Neurological exam: PRESENT: alert, awake, oriented to person, oriented to place , oriented to time, oriented to situation, CN II-XII grossly intact. ABSENT: motor sensory deficit Psychiatric exam: PRESENT: appropriate affect, normal mood. ABSENT: homicidal ideation, suicidal ideation Skin exam: PRESENT: dry, intact, warm. ABSENT: cyanosis, rash Results Laboratory Results: 09/30/17 04:50 09/30/17 04:50 09/29/17 09/30/1718 10:20 04:50 04:50 WBC 5.6 5.8 RBC 3.49 L 3.43 L Hgb 11.3 L 11.1 L Hct 34.0 L 32.8 L MCV 97 96 MCH 32.4 32.4 MCHC 33.3 33.9 RDW 14.3 H 13.8 Plt Count 206 186 Seg Neutrophils % 71.7 Lymphocytes % 17.7 Monocytes % 9.9 Eosinophils % 0.1 Basophils % 0.6 Absolute Neutrophils 4.2 Absolute Lymphocytes 1.0 Absolute Monocytes 0.6 Absolute Eosinophils 0.0 Absolute Basophils 0.0 Sodium 134.6 L Potassium 4.4 Chloride 98 Carbon Dioxide 24 Anion Gap 13 BUN 59 H Creatinine 3.95 H Est GFR ( Amer) 13 L Est GFR (Non-Af Amer) 11 L Glucose 299 H Calcium 8.3 L Magnesium 1.8 09/29/17 09/29/17 09/29/17 01:51 01:51 06:45 Creatine Kinase 1010 H 904 H CK-MB (CK-2) 1.15 Troponin I 0.045 09/29/17 06:45 Creatine Kinase CK-MB (CK-2) 1.04 Troponin I 0.048 Impressions: Chest X-Ray 09/28/17 16:27 IMPRESSION: Dual lumen catheter without evidence of complication. No evidence of acute cardiopulmonary abnormality. Head CT 09/29/17 00:00 IMPRESSION: NO CT EVIDENCE OF ACUTE ISCHEMIA, HEMORRHAGE, OR MASS LESION. SYMMETRIC CALCIFICATIONS INVOLVING THE BASAL GANGLIA, THALAMUS, AND CEREBELLUM WHICH IS NONSPECIFIC IN BEGINS SECONDARY TO METABOLIC DISORDERS, DEGENERATIVE PROCESS, OR PHYSIOLOGIC. CORRELATE WITH PATIENT'S CLINICAL HISTORY. Assessment & Plan - Diagnosis (1) Pneumonia Qualifiers: Pneumonia type: due to unspecified organism Laterality: unspecified laterality Lung location: unspecified part of lung Qualified Code(s): J18.9 - Pneumonia, unspecified organism Is this a current diagnosis for this admission?: Yes Plan: Will continue broad spectrum antibiotics, cultures pending. Normal white count. Cough is mostly nonproductive (2) Severe headache Is this a current diagnosis for this admission?: Yes Plan: Prn fioricet. Resolved at the present time. Most likely secondary to acute illness mild dehydration (3) Anemia Is this a current diagnosis for this admission?: Yes Plan: Presently stable, secondary to chronic disease (4) Diabetes Is this a current diagnosis for this admission?: Yes Plan: Restart daily insulin, she is eating well. Sliding scale coverage (5) Dyslipidemia Is this a current diagnosis for this admission?: Yes Plan: Continue statin (6) Hypertension Is this a current diagnosis for this admission?: Yes Plan: Continue current home medications she is normotensive (7) End-stage renal disease on hemodialysis Is this a current diagnosis for this admission?: Yes Plan: On hemodialysis three times weekly. Dialysis today - Time Time Spent with patient: 25-34 minutes Medications reviewed and adjusted accordingly: Yes Anticipated discharge: Home with Homehealth - Inpatient Certification Based on my medical assessment, after consideration of the patient's comorbidities, presenting symptoms, or acuity I expect that the services needed warrant INPATIENT care.: Yes I certify that my determination is in accordance with my understanding of Medicare's requirements for reasonable and necessary INPATIENT services [42 CFR 412.3e].: Yes Medical Necessity: Need for Nebulizer Therapy and Monitoring of Response, Need for IV Antibiotics
[2017-09-30] MEDS ORDERED: FATTY ACIDS PO SCH (10:00)
[2017-09-30] MEDS ORDERED: FISH OIL PO SCH (10:00)
[2017-09-30] MEDS ORDERED: CLONIDINE 0.3 MG/24 HR PATCH.TDWK TD SCH (10:00)
[2017-09-30] MEDS ORDERED: OMEGA PO SCH (10:00)
[2017-09-30] MEDS ORDERED: HEPARIN SOD (PORCINE) 1,000 UNIT/ML 10 ML VIAL IV PRN (10:11)
[2017-09-30] MEDS: ASPIRIN 81 MG TABLET, ENT COATED PO SCH (12:52)
[2017-09-30] MEDS: FOLIC ACID/VITAMIN B COMP W-C CAPSULE PO SCH (12:53)
[2017-09-30] MEDS: FENOFIBRATE NANOCRYSTALLIZED 145 MG TABLET PO SCH (12:53)
[2017-09-30] MEDS: GUAIFENESIN 600 MG TABLET.SA PO SCH ×2 (12:54→22:05)
[2017-09-30] MEDS: CARVEDILOL 12.5 MG TABLET PO SCH ×2 (12:55→22:06)
[2017-09-30] MEDS: ASCORBIC ACID 500 MG TABLET PO SCH ×2 (12:56→18:27)
[2017-09-30] MEDS: CHOLECALCIFEROL (D3) 1,000 UNIT TABLET PO SCH (12:56)
[2017-09-30] MEDS: FLUTICASONE NASAL SPRAY 50 MCG/SPRY 120 SPRAY/16 GM NASL SCH ×2 (13:03→22:15)
[2017-09-30] MEDS ORDERED: ASPART SQ SCH (18:00)
[2017-09-30] MEDS ORDERED: INSULIN ASPART PROTAM SQ SCH (18:00)
[2017-09-30] MEDS: AMLODIPINE BESYLATE 10 MG TABLET PO SCH (18:27)
[2017-09-30] MEDS: VANCOMYCIN HCL 750 MG in DEXTROSE 5%-WATER 250 ML IV SCH (18:30)
[2017-09-30] MEDS: HUM INSULIN NPH/REG INSULIN HM 100 UNIT/1 ML 3 ML SUBCUT SCH (18:47)
[2017-09-30] MEDS ORDERED: HUM INSULIN NPH/REG INSULIN HM 100 UNIT/1 ML 3 ML SUBCUT ONE (19:00)
--- NOTE | 2017-09-30 19:14 | PDOC CONSULTATION ---
Consultation Consult Date: 09/30/17 Attending physician:: ROSITA MCNAMARA Consult reason:: I was asked by Dr. Mcnamara to see this patient to supervise dialysis while here in the hospital. History of Present Illness Admission Date/PCP: 09/28/17 19:47 History of Present Illness: YAHAIRA MCKEON is a 76 year old female with a past medical history of end- stage renal disease on hemodialysis Saturday, , and Saturday; hypertension, dyslipidemia and diabetes. Patient presents with 6 hours of shortness of breath, nonproductive cough, fever and rigors which limited her hemodialysis to 2 hours today. In the emergency room she is found to have a fever of 100.8, oxygen saturation of 90% on room air, rigors and rhonchi. She denies infectious contacts, influenza or pneumonia vaccinations or recent antibiotics. She is negative for influenza and started on empiric antibiotics for pneumonia. She denies chest pain. She also denies any diarrhea, nausea, vomiting, nor chest pains. This morning at around 8:25 AM I saw the patient during initiation of dialysis. Patient tells me that she is feeling a little bit better especially that she was able to sleep last night. She is not having any more rigors no chills. She is hemodynamically stable and oxygen saturations are doing well. She does not have any other complaints. 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 Renal/ Medical History: Reports: End Stage Renal Disease GI Medical History: Reports: Gastroesophageal Reflux Disease Musculoskeltal Medical History: Reports: Arthritis - Osteoarthritis Psychiatric Medical History: Reports: Depression Hematology Medical History: Reports Anemia of Chronic Kidney Disease Past Surgical History Past Surgical History: Reports: Appendectomy - 01/15/12, Section - x 1, Dialysis Access Surgery AVF, Orthopedic Surgery - left index finer, Vascular Surgery - PermCath placement for dialysis Social History Information Source: Patient Lives with: Alone Smoking Status: Former Smoker Last Time Smoked: 1977 Frequency of Alcohol Use: None Hx Recreational Drug Use: No Drugs: None Hx Prescription Drug Abuse: No - Advance Directive Resuscitation Status: Full Code Family History Family History: Reviewed & Not Pertinent Parental Family History Reviewed: Yes Children Family History Reviewed: Yes Sibling(s) Family History Reviewed.: Yes Medication/Allergy Home Medications: Amlodipine Besylate [Norvasc 10 mg Tablet] 10 mg PO QPM 09/29/17 Ascorbic Acid [Vitamin C 500 mg Tablet] 500 mg PO BID 09/29/17 Aspirin [Aspirin EC] 81 mg PO DAILY 09/29/17 Atorvastatin Calcium [Lipitor 20 mg Tablet] 20 mg PO DAILY 09/29/17 B Complex W-C No.20/Folic Acid [Renal Caps Softgel] 1 mg PO DAILY 09/29/17 Carvedilol [Coreg 25 mg Tablet] 25 mg PO Q12 09/29/17 Cholecalciferol (Vitamin D3) [Vitamin D3 5000 unit Capsule] 5,000 unit PO DAILY 09/29/17 Clonidine [Catapres-Tts 3 (0.3 mg/24 Hr) Transderm Patch] 1 patch TD MO@1000 Diphenhydramine HCl [Benadryl Allergy] 25 mg PO Q6HP PRN 09/29/17 Fenofibrate Nanocrystallized [Tricor 145 mg Tablet] 145 mg PO DAILY 09/29/17 Furosemide [Lasix 40 mg Tablet] 40 mg PO SUMOWE@1000 09/29/17 Glucosamine Sulfate Dipot Chlr [Glucosamine] 1,500 mg PO BID 09/29/17 Hydralazine HCl 100 mg PO Q12 09/29/17 Insulin Aspart Protam & Aspart [Novolog Mix 70-30 Vial] 35 unit SQ QAM 09/29/17 Insulin Aspart Protam & Aspart [Novolog Mix 70-30 Vial] 40 unit SQ QPM 09/29/17 Levothyroxine Sodium [Synthroid] 25 mcg PO DAILY 09/29/17 Lisinopril [Prinivil 40 mg Tablet] 20 mg PO SUMOWE@1000,1800 09/29/17 Lisinopril [Prinivil 40 mg Tablet] 20 mg PO TUTHSA@1800 09/29/17 Melatonin 2 mg PO QHS 09/29/17 Outlook-3 Fatty Acids/Fish Oil [Outlook 3 Fish Oil Softgel] 2 each PO DAILY Allergies/Adverse Reactions: tolterodine tartrate [From Detrol] Allergy (Verified 05/16/17 09:57) Hives Review of Systems All systems: reviewed and no additional remarkable complaints except as stated Review of Systems: Constitutional: ABSENT: Fatigue, weight gain, weight loss; admits presenting fever, chills, rigors Eyes: ABSENT: visual disturbances Ears: ABSENT: hearing changes Cardiovascular: ABSENT: chest pain, dyspnea on exertion, edema, orthropnea, palpitations Respiratory: ABSENT: Hemoptysis; admits nonproductive cough and initial shortness of breath Gastrointestinal: ABSENT: abdominal pain, constipation, diarrhea, hematemesis, hematochezia, nausea, vomiting Genitourinary: ABSENT: dysuria, hematuria Musculoskeletal: ABSENT: joint swelling Integumentary: ABSENT: rash, wounds Neurological: ABSENT: abnormal gait, abnormal speech, confusion, dizziness, focal weakness, numbness, syncope Psychiatric: ABSENT: anxiety, depression Endocrine: ABSENT: cold intolerance, heat intolerance, polydipsia, polyuria Hematologic/Lymphatic: ABSENT: easy bleeding, easy bruising, lymphadenopathy Physical Exam Vital Signs: Temp Pulse Resp BP Pulse Ox 100.0 F 71 18 152/47 H 93 09/30/17 14:50 09/30/17 14:50 09/30/17 14:50 09/30/17 14:50 09/30/17 16:35 Intake & Output 09/29/17 09/30/17 10/01/17 06:59 06:59 06:59 Intake Total 70 Output Total 2500 Balance -2430 Vitals during dialysis initiation this morning: Blood pressure 140/52, heart rate 76, respiration of 19, oxygen saturation 98%. Exam: General appearance: no acute distress, cooperative, well-developed, well- nourished Head exam: PRESENT: atraumatic, normocephalic Eye exam: PRESENT: Conjunctiva slightly pale, EOMI, PERRLA. ABSENT: conjunctival injection, scleral icterus Mouth exam: PRESENT: moist, neck supple, tongue midline Neck exam: PRESENT: full ROM. ABSENT: carotid bruit, JVD, lymphadenopathy, thyromegaly Respiratory exam: PRESENT: Slightly diminished to auscultation bilaterally. Bilateral basal crackles ABSENT: Rhonchi, stridor, wheezes Cardiovascular exam: PRESENT: RRR, +S1, +S2. ABSENT: systolic murmur Pulses: PRESENT: normal radial pulses, normal dorsalis pedis pulses GI/Abdominal exam: PRESENT: normal bowel sounds, soft. ABSENT: guarding, mass, tenderness Rectal exam: deferred Extremities exam: PRESENT: full ROM. ABSENT: calf tenderness, pedal edema Musculoskeletal: PRESENT: full ROM. ABSENT: deformity Neurological exam: PRESENT: alert, Awake, Oriented to person, Oriented to place , Oriented to time, reflexes normal, CN II-XII grossly intact. ABSENT: motor sensory deficit Psychiatric exam: PRESENT: appropriate affect, normal mood. ABSENT: homicidal ideation, suicidal ideation Skin exam: PRESENT: intact, dry, warm. ABSENT: rash Results Laboratory Results: 09/30/17 04:50 09/30/17 04:50 09/30/17 09/30/17 04:50 04:50 WBC 5.8 RBC 3.43 L Hgb 11.1 L Hct 32.8 L MCV 96 MCH 32.4 MCHC 33.9 RDW 13.8 Plt Count 186 Seg Neutrophils % 71.7 Lymphocytes % 17.7 Monocytes % 9.9 Eosinophils % 0.1 Basophils % 0.6 Absolute Neutrophils 4.2 Absolute Lymphocytes 1.0 Absolute Monocytes 0.6 Absolute Eosinophils 0.0 Absolute Basophils 0.0 Sodium 134.6 L Potassium 4.4 Chloride 98 Carbon Dioxide 24 Anion Gap 13 BUN 59 H Creatinine 3.95 H Est GFR ( Amer) 13 L Est GFR (Non-Af Amer) 11 L Glucose 299 H Calcium 8.3 L Magnesium 1.8 09/29/17 09/29/17 09/29/17 01:51 01:51 06:45 Creatine Kinase 1010 H 904 H CK-MB (CK-2) 1.15 Troponin I 0.045 09/29/17 06:45 Creatine Kinase CK-MB (CK-2) 1.04 Troponin I 0.048 Impressions: Chest X-Ray 09/28/17 16:27 IMPRESSION: Dual lumen catheter without evidence of complication. No evidence of acute cardiopulmonary abnormality. Head CT 09/29/17 00:00 IMPRESSION: NO CT EVIDENCE OF ACUTE ISCHEMIA, HEMORRHAGE, OR MASS LESION. SYMMETRIC CALCIFICATIONS INVOLVING THE BASAL GANGLIA, THALAMUS, AND CEREBELLUM WHICH IS NONSPECIFIC IN BEGINS SECONDARY TO METABOLIC DISORDERS, DEGENERATIVE PROCESS, OR PHYSIOLOGIC. CORRELATE WITH PATIENT'S CLINICAL HISTORY. Assessment & Plan - Diagnosis (1) End-stage renal disease on hemodialysis Is this a current diagnosis for this admission?: Yes Plan: We did dialysis today for 3 hours, using the patient's PermCath, with 2 potassium bath, blood flow rate of 300-450 mL per minute, dialysate flow rate of 6 mL per minute, ultrafiltration 2-3 L, no heparin and no Procrit during dialysis. Patient tolerated dialysis without any problems or complications. (2) Anemia in chronic kidney disease (CKD) Is this a current diagnosis for this admission?: Yes Plan: Procrit as needed during dialysis. (3) Pneumonia Qualifiers: Pneumonia type: due to unspecified organism Laterality: unspecified laterality Lung location: unspecified part of lung Qualified Code(s): J18.9 - Pneumonia, unspecified organism Is this a current diagnosis for this admission?: Yes Plan: Defer to the hospitalist service. (4) Hypertension Is this a current diagnosis for this admission?: Yes (5) Diabetes Qualifiers: Diabetes mellitus type: type 2 Diabetes mellitus complication detail: with nephropathy Is this a current diagnosis for this admission?: Yes - Notes Notes: Thank you very much for this consultation. I will supervise patient's dialysis while here in the hospital. - Time Time Spent: 50 to 70 Minutes
[2017-09-30] MEDS: ATORVASTATIN CALCIUM 20 MG TABLET PO SCH (22:07)
[2017-10-01] MEDS: IPRATROPIUM/ALBUTEROL 0.5-2.5 MG/3 ML AMPUL NEB SCH ×4 (02:28→20:58)
[2017-10-01] MEDS: LEVOTHYROXINE SODIUM 0.025 MG TABLET PO SCH (05:22)
[2017-10-01] MEDS: PIPERACILLIN SODIUM/TAZOBACTAM 2.25 GM in NORMAL SALINE 50 ML IV SCH ×3 (05:22→22:28)
[2017-10-01 06:10] LABS: ABSOLUTE LYMPHOCYTES (AUTO) 1.2 10^3/uL (0.5-4.7); ABSOLUTE MONOCYTES (AUTO) 0.5 10^3/uL (0.1-1.4); ABSOLUTE NEUT (AUTO) 1.3 10^3/uL (1.7-8.2); BASOPHILS % (AUTO) 0.6 % (0-2); EOSINOPHILS % (AUTO) 0.9 % (0-6); HEMATOCRIT 35.4 % (36.0-47.0); HEMOGLOBIN 11.8 g/dL (12.0-15.5); LYMPHOCYTES % (AUTO) 39.4 % (13-45); MEAN CORPUSCULAR HGB CONC 33.3 g/dL (32.0-36.0); MEAN CORPUSCULAR VOLUME 96 fl (80-97); MONOCYTES % (AUTO) 17.7 % (3-13); PLATELET COUNT 184 10^3/uL (150-450); RED BLOOD COUNT 3.69 10^6/uL (3.72-5.28); SEGMENTED NEUTROPHILS % (AUTO) 41.4 % (42-78); TOTAL CELLS COUNTED % (AUTO) 100 %
[2017-10-01 06:12] LABS: ANION GAP 10 (5-19); BLOOD UREA NITROGEN 52 mg/dL (7-20); CALCIUM 8.6 mg/dL (8.4-10.2); CARBON DIOXIDE 28 mmol/L (22-30); CHLORIDE 100 mmol/L (98-107); GLUCOSE 131 mg/dL (75-110); SODIUM 137.9 mmol/L (137-145)
[2017-10-01] MEDS ORDERED: INSULIN ASPART PROTAM SQ SCH (08:00)
[2017-10-01] MEDS ORDERED: ASPART SQ SCH (08:00)
[2017-10-01] MEDS: HEPARIN SOD (PORCINE) 5,000 UNIT/ML 1 ML SYRINGE SUBCUT SCH ×3 (08:43→22:28)
[2017-10-01] MEDS: HUM INSULIN NPH/REG INSULIN HM 100 UNIT/1 ML 3 ML SUBCUT SCH ×2 (08:52→17:37)
[2017-10-01] MEDS: CARVEDILOL 12.5 MG TABLET PO SCH ×2 (10:39→22:28)
[2017-10-01] MEDS: CHOLECALCIFEROL (D3) 1,000 UNIT TABLET PO SCH (10:40)
[2017-10-01] MEDS: FOLIC ACID/VITAMIN B COMP W-C CAPSULE PO SCH (10:40)
[2017-10-01] MEDS: ASPIRIN 81 MG TABLET, ENT COATED PO SCH (10:42)
[2017-10-01] MEDS: GUAIFENESIN 600 MG TABLET.SA PO SCH ×2 (10:42→22:28)
[2017-10-01] MEDS: ASCORBIC ACID 500 MG TABLET PO SCH ×2 (10:43→17:38)
[2017-10-01] MEDS: FENOFIBRATE NANOCRYSTALLIZED 145 MG TABLET PO SCH (10:43)
[2017-10-01] MEDS: OMEGA-3 ACID ETHYL ESTERS 1 GM CAPSULE PO SCH (10:43)
[2017-10-01] MEDS: FLUTICASONE NASAL SPRAY 50 MCG/SPRY 120 SPRAY/16 GM NASL SCH ×2 (10:45→22:25)
[2017-10-01] MEDS: INSULIN LISPRO 100 UNIT/ML 3 ML VIAL SUBCUT PRN ×2 (13:24→17:38)
[2017-10-01] MEDS: AMLODIPINE BESYLATE 10 MG TABLET PO SCH (17:38)
[2017-10-01] MEDS: ATORVASTATIN CALCIUM 20 MG TABLET PO SCH (22:28)
[2017-10-01] MEDS: DIPHENHYDRAMINE HCL 25 MG CAPSULE PO PRN (23:39)
[2017-10-02] MEDS: IPRATROPIUM/ALBUTEROL 0.5-2.5 MG/3 ML AMPUL NEB SCH ×4 (02:23→21:01)
[2017-10-02] MEDS ORDERED: HEPARIN SOD (PORCINE) 1,000 UNIT/ML 10 ML VIAL IV PRN ×3 (05:00→10:55)
[2017-10-02] MEDS ORDERED: NORMAL SALINE 1000 ML 1,000 ML IV PRN (05:00)
[2017-10-02] MEDS: HEPARIN SOD (PORCINE) 5,000 UNIT/ML 1 ML SYRINGE SUBCUT SCH ×3 (06:09→21:08)
[2017-10-02] MEDS: PIPERACILLIN SODIUM/TAZOBACTAM 2.25 GM in NORMAL SALINE 50 ML IV SCH ×2 (06:09→13:18)
[2017-10-02] MEDS: LEVOTHYROXINE SODIUM 0.025 MG TABLET PO SCH (06:10)
[2017-10-02 06:51] LABS: ABSOLUTE EOSINOPHILS # (AUTO) 0.1 10^3/uL (0.0-0.6); ABSOLUTE LYMPHOCYTES (AUTO) 1.3 10^3/uL (0.5-4.7); ABSOLUTE MONOCYTES (AUTO) 0.6 10^3/uL (0.1-1.4); ABSOLUTE NEUT (AUTO) 2.6 10^3/uL (1.7-8.2); BASOPHILS % (AUTO) 0.5 % (0-2); EOSINOPHILS % (AUTO) 1.6 % (0-6); LYMPHOCYTES % (AUTO) 28.1 % (13-45); MEAN CORPUSCULAR HGB CONC 33.5 g/dL (32.0-36.0); MEAN CORPUSCULAR VOLUME 96 fl (80-97); MONOCYTES % (AUTO) 12.7 % (3-13); PLATELET COUNT 208 10^3/uL (150-450); RED BLOOD COUNT 3.77 10^6/uL (3.72-5.28); RED CELL DISTRIBUTION WIDTH 13.7 % (11.5-14.0); SEGMENTED NEUTROPHILS % (AUTO) 57.1 % (42-78); TOTAL CELLS COUNTED % (AUTO) 100 %; WHITE BLOOD COUNT 4.5 10^3/uL (4.0-10.5)
[2017-10-02 07:21] LABS: ANION GAP 14 (5-19); BLOOD UREA NITROGEN 68 mg/dL (7-20); CARBON DIOXIDE 23 mmol/L (22-30); CHLORIDE 102 mmol/L (98-107); GLUCOSE 60 mg/dL (75-110); POTASSIUM 4.1 mmol/L (3.6-5.0); SODIUM 138.6 mmol/L (137-145)
--- NOTE | 2017-10-02 09:31 | PDOC PROGRESS REPORT ---
Subjective Progress Note for:: 10/01/17 Subjective:: Patient presented with pneumonia. Patient states she is feeling much better. Patient continues to have a cough but is nonproductive. Patient states she has been up and walking however does feel weak. Patient states she will be agreeable to working with PT after dialysis. Patient is suspected to have dialysis tomorrow. Reason For Visit: ESRD,PNEUMONIA,DIABETES Physical Exam Vital Signs: Temp Pulse Resp BP Pulse Ox 98.3 F 75 16 160/58 H 92 10/01/17 19:58 10/01/17 19:58 10/01/17 19:58 10/01/17 19:58 10/01/17 19:58 Intake & Output 09/30/17 10/01/17 10/02/17 06:59 06:59 06:59 Intake Total 447 650 Output Total 2500 Balance -2052 650 Weight 62.8 kg General appearance: PRESENT: no acute distress, well-developed, well-nourished Head exam: PRESENT: normocephalic Eye exam: PRESENT: EOMI. ABSENT: scleral icterus Ear exam: PRESENT: normal external ear exam Mouth exam: PRESENT: moist Neck exam: ABSENT: carotid bruit, JVD, lymphadenopathy, thyromegaly Respiratory exam: PRESENT: clear to auscultation hany, decreased breath sounds - At the bases, unlabored. ABSENT: rales, rhonchi, wheezes Cardiovascular exam: PRESENT: RRR, other - Palpable thrill in the left forearm. ABSENT: diastolic murmur, rubs, systolic murmur Pulses: PRESENT: normal dorsalis pedis pul Vascular exam: PRESENT: normal capillary refill GI/Abdominal exam: PRESENT: normal bowel sounds, soft. ABSENT: distended, guarding, mass, organolmegaly, rebound, tenderness Rectal exam: PRESENT: deferred Extremities exam: PRESENT: full ROM. ABSENT: calf tenderness, clubbing, pedal edema Neurological exam: PRESENT: alert, awake, oriented to person, oriented to place , oriented to time, oriented to situation, CN II-XII grossly intact. ABSENT: motor sensory deficit Psychiatric exam: PRESENT: appropriate affect, normal mood. ABSENT: homicidal ideation, suicidal ideation Skin exam: PRESENT: dry, intact, warm. ABSENT: cyanosis, rash Results Laboratory Results: 10/01/17 05:07 10/01/17 05:07 10/01/17 10/01/17 05:07 05:07 WBC 3.0 L RBC 3.69 L Hgb 11.8 L Hct 35.4 L MCV 96 MCH 32.0 MCHC 33.3 RDW 14.0 Plt Count 184 Seg Neutrophils % 41.4 L Lymphocytes % 39.4 Monocytes % 17.7 H Eosinophils % 0.9 Basophils % 0.6 Absolute Neutrophils 1.3 L Absolute Lymphocytes 1.2 Absolute Monocytes 0.5 Absolute Eosinophils 0.0 Absolute Basophils 0.0 Sodium 137.9 Potassium 4.0 Chloride 100 Carbon Dioxide 28 Anion Gap 10 BUN 52 H Creatinine 4.02 H Est GFR ( Amer) 13 L Est GFR (Non-Af Amer) 11 L Glucose 131 H Calcium 8.6 09/29/17 09/29/17 09/29/17 01:51 01:51 06:45 Creatine Kinase 1010 H 904 H CK-MB (CK-2) 1.15 Troponin I 0.045 09/29/17 06:45 Creatine Kinase CK-MB (CK-2) 1.04 Troponin I 0.048 Impressions: Chest X-Ray 09/28/17 16:27 IMPRESSION: Dual lumen catheter without evidence of complication. No evidence of acute cardiopulmonary abnormality. Head CT 09/29/17 00:00 IMPRESSION: NO CT EVIDENCE OF ACUTE ISCHEMIA, HEMORRHAGE, OR MASS LESION. SYMMETRIC CALCIFICATIONS INVOLVING THE BASAL GANGLIA, THALAMUS, AND CEREBELLUM WHICH IS NONSPECIFIC IN BEGINS SECONDARY TO METABOLIC DISORDERS, DEGENERATIVE PROCESS, OR PHYSIOLOGIC. CORRELATE WITH PATIENT'S CLINICAL HISTORY. Assessment & Plan - Diagnosis (1) Pneumonia Qualifiers: Pneumonia type: due to unspecified organism Laterality: unspecified laterality Lung location: unspecified part of lung Qualified Code(s): J18.9 - Pneumonia, unspecified organism Is this a current diagnosis for this admission?: Yes Plan: Continue with Zosyn and vancomycin. Patient clinically improved. (2) Anemia in chronic kidney disease (CKD) Is this a current diagnosis for this admission?: Yes Plan: Patient hemoglobin stable. Continue supportive care. (3) Dyslipidemia Is this a current diagnosis for this admission?: Yes Plan: Continue statin. (4) Severe headache Is this a current diagnosis for this admission?: Yes Plan: The head was negative. Patient continued on Fioricet as needed. Patient is no longer complaining of headache. This could have been secondary to her diagnosis of pneumonia and dehydration. (5) End-stage renal disease on hemodialysis Is this a current diagnosis for this admission?: Yes Plan: Plan for dialysis Saturday. Dr. Zheng is following. - Time Time Spent with patient: 15-24 minutes Anticipated discharge: Home - Inpatient Certification Medical Necessity: Need for IV Antibiotics
[2017-10-02] MEDS: HUM INSULIN NPH/REG INSULIN HM 100 UNIT/1 ML 3 ML SUBCUT SCH ×2 (13:12→18:09)
[2017-10-02] MEDS: CHOLECALCIFEROL (D3) 1,000 UNIT TABLET PO SCH (13:12)
[2017-10-02] MEDS: INSULIN LISPRO 100 UNIT/ML 3 ML VIAL SUBCUT PRN ×2 (13:12→18:09)
[2017-10-02] MEDS: FENOFIBRATE NANOCRYSTALLIZED 145 MG TABLET PO SCH (13:14)
[2017-10-02] MEDS: OMEGA-3 ACID ETHYL ESTERS 1 GM CAPSULE PO SCH (13:14)
[2017-10-02] MEDS: GUAIFENESIN 600 MG TABLET.SA PO SCH ×2 (13:15→21:08)
[2017-10-02] MEDS: ASCORBIC ACID 500 MG TABLET PO SCH ×2 (13:16→18:10)
[2017-10-02] MEDS: CARVEDILOL 12.5 MG TABLET PO SCH ×2 (13:16→21:08)
[2017-10-02] MEDS: ASPIRIN 81 MG TABLET, ENT COATED PO SCH (13:17)
[2017-10-02] MEDS: FOLIC ACID/VITAMIN B COMP W-C CAPSULE PO SCH (13:17)
[2017-10-02] MEDS: FLUTICASONE NASAL SPRAY 50 MCG/SPRY 120 SPRAY/16 GM NASL SCH ×2 (13:18→21:08)
--- NOTE | 2017-10-02 17:04 | PDOC PROGRESS REPORT ---
Subjective Progress Note for:: 10/02/17 Subjective:: I saw the patient during dialysis around 8:55 AM this morning. She was looking very well confirms that she feels much, much better. She still has a little bit of a dry cough but does not have any fever no chills nor shortness of breath. She was tolerating dialysis well. Reason For Visit: ESRD,PNEUMONIA,DIABETES Physical Exam Vital Signs: Temp Pulse Resp BP Pulse Ox 98.9 F 80 18 165/40 H 90 L 10/02/17 03:45 10/02/17 14:00 10/02/17 14:00 10/02/17 03:45 10/02/17 14:00 Intake & Output 10/01/17 10/02/17 10/03/17 06:59 06:59 06:59 Intake Total 447 1405 Output Total 2500 2100 Balance -2053 1405 -2100 Weight 62.8 kg 63.5 kg Vitals during dialysis: Blood pressure 160/67, heart rate of 70, blood flow rate of 300 mL/min, dialysate flow rate of 600 mL/min. Exam: General appearance: PRESENT: no acute distress, cooperative, well-developed, well-nourished Head exam: PRESENT: atraumatic, normocephalic Eye exam: PRESENT: conjunctiva pink, PERRLA. ABSENT: scleral icterus Neck exam: ABSENT: JVD Respiratory exam: PRESENT: Diminished breath sounds. Bilateral basal crackles, decreased from previous ABSENT: Rhonchi, unlabored, wheezes Cardiovascular exam: PRESENT: Regular rate rhythm -+S1, +S2. ABSENT: diastolic murmur, systolic murmur GI/Abdominal exam: PRESENT: normal bowel sounds, soft. ABSENT: guarding, mass, tenderness Extremities exam: ABSENT: No edema Neurological exam: PRESENT: alert, awake, oriented to person, place and time. Skin exam: PRESENT: dry, warm, Results Laboratory Results: 10/02/17 05:26 10/02/17 05:26 10/02/17 10/02/17 05:26 05:26 WBC 4.5 RBC 3.77 Hgb 12.0 Hct 36.0 MCV 96 MCH 32.0 MCHC 33.5 RDW 13.7 Plt Count 208 Seg Neutrophils % 57.1 Lymphocytes % 28.1 Monocytes % 12.7 Eosinophils % 1.6 Basophils % 0.5 Absolute Neutrophils 2.6 Absolute Lymphocytes 1.3 Absolute Monocytes 0.6 Absolute Eosinophils 0.1 Absolute Basophils 0.0 Sodium 138.6 Potassium 4.1 Chloride 102 Carbon Dioxide 23 Anion Gap 14 BUN 68 H Creatinine 3.95 H Est GFR ( Amer) 13 L Est GFR (Non-Af Amer) 11 L Glucose 60 L Calcium 9.0 09/29/17 09/29/17 09/29/17 01:51 01:51 06:45 Creatine Kinase 1010 H 904 H CK-MB (CK-2) 1.15 Troponin I 0.045 09/29/17 06:45 Creatine Kinase CK-MB (CK-2) 1.04 Troponin I 0.048 Impressions: Chest X-Ray 09/28/17 16:27 IMPRESSION: Dual lumen catheter without evidence of complication. No evidence of acute cardiopulmonary abnormality. Head CT 09/29/17 00:00 IMPRESSION: NO CT EVIDENCE OF ACUTE ISCHEMIA, HEMORRHAGE, OR MASS LESION. SYMMETRIC CALCIFICATIONS INVOLVING THE BASAL GANGLIA, THALAMUS, AND CEREBELLUM WHICH IS NONSPECIFIC IN BEGINS SECONDARY TO METABOLIC DISORDERS, DEGENERATIVE PROCESS, OR PHYSIOLOGIC. CORRELATE WITH PATIENT'S CLINICAL HISTORY. Assessment & Plan - Diagnosis (1) End-stage renal disease on hemodialysis Is this a current diagnosis for this admission?: Yes Plan: We did dialysis today for 3 hours, using the patient's PermCath, with 2 potassium bath, blood flow rate of 300-450 mL per minute, dialysate flow rate of 600 mL per minute, ultrafiltration 2-3 L, no heparin and no Procrit during dialysis. Patient tolerated dialysis without any problems or complications. (2) Anemia in chronic kidney disease (CKD) Is this a current diagnosis for this admission?: Yes Plan: Procrit as needed during dialysis. (3) Pneumonia Qualifiers: Pneumonia type: due to unspecified organism Laterality: unspecified laterality Lung location: unspecified part of lung Qualified Code(s): J18.9 - Pneumonia, unspecified organism Is this a current diagnosis for this admission?: Yes Plan: Defer to the hospitalist service. (4) Hypertension Is this a current diagnosis for this admission?: Yes (5) Diabetes Qualifiers: Diabetes mellitus type: type 2 Diabetes mellitus complication detail: with nephropathy Is this a current diagnosis for this admission?: Yes - Notes Notes: From nephrology standpoint I think the patient is clinically better and can probably be discharged with oral antibiotics. She will continue her routine maintenance hemodialysis at [facility] once discharged. - Time Time with patient: 15-25 minutes
[2017-10-02] MEDS: VANCOMYCIN HCL 750 MG in DEXTROSE 5%-WATER 250 ML IV SCH (18:09)
[2017-10-02] MEDS: AMLODIPINE BESYLATE 10 MG TABLET PO SCH (18:10)
[2017-10-02 18:28] LABS: VANCOMYCIN,TROUGH 10.6 ug/mL (5.0-20.0)
[2017-10-02] MEDS ORDERED: BENZOCAINE/MENTHOL SORE THROAT LOZENGE BUCCAL PRN (18:35)
[2017-10-02] MEDS: ATORVASTATIN CALCIUM 20 MG TABLET PO SCH (21:08)
[2017-10-02] MEDS: BENZONATATE 100 MG CAPSULE PO SCH (21:08)
[2017-10-03] MEDS: IPRATROPIUM/ALBUTEROL 0.5-2.5 MG/3 ML AMPUL NEB SCH ×4 (02:56→19:42)
[2017-10-03] MEDS: DIPHENHYDRAMINE HCL 25 MG CAPSULE PO PRN ×2 (03:07→21:15)
[2017-10-03] MEDS: LEVOTHYROXINE SODIUM 0.025 MG TABLET PO SCH (05:16)
[2017-10-03] MEDS: HEPARIN SOD (PORCINE) 5,000 UNIT/ML 1 ML SYRINGE SUBCUT SCH ×3 (05:16→21:15)
[2017-10-03] MEDS: BENZONATATE 100 MG CAPSULE PO SCH ×3 (05:16→21:16)
[2017-10-03] MEDS ORDERED: ACETAMINOPHEN 325 MG TABLET PO PRN (07:50)
[2017-10-03] MEDS: HUM INSULIN NPH/REG INSULIN HM 100 UNIT/1 ML 3 ML SUBCUT SCH ×2 (08:46→17:48)
[2017-10-03] MEDS: CHOLECALCIFEROL (D3) 1,000 UNIT TABLET PO SCH (10:03)
[2017-10-03] MEDS: FOLIC ACID/VITAMIN B COMP W-C CAPSULE PO SCH (10:03)
[2017-10-03] MEDS: GUAIFENESIN 600 MG TABLET.SA PO SCH ×2 (10:03→21:15)
[2017-10-03] MEDS: FLUTICASONE NASAL SPRAY 50 MCG/SPRY 120 SPRAY/16 GM NASL SCH ×2 (10:03→21:15)
[2017-10-03] MEDS: ASCORBIC ACID 500 MG TABLET PO SCH ×2 (10:04→17:49)
[2017-10-03] MEDS: OMEGA-3 ACID ETHYL ESTERS 1 GM CAPSULE PO SCH (10:04)
[2017-10-03] MEDS: FENOFIBRATE NANOCRYSTALLIZED 145 MG TABLET PO SCH (10:04)
[2017-10-03] MEDS: LACTOBACILLUS ACIDOPHILUS 250 MG TAB PO SCH ×2 (10:05→17:51)
[2017-10-03] MEDS: ASPIRIN 81 MG TABLET, ENT COATED PO SCH (10:05)
[2017-10-03] MEDS: CARVEDILOL 12.5 MG TABLET PO SCH ×2 (10:05→21:16)
--- NOTE | 2017-10-03 10:16 | PDOC PROGRESS REPORT ---
Subjective Progress Note for:: 10/02/17 Subjective:: Patient presented with pneumonia. Patient states she is feeling much better. Patient continues to have a cough but is nonproductive. Patient also having a sore throat. Patient asked for something for the cough as when she coughs her whole entire body hurts. Per nurse patient passed out towards the end of dialysis therefore she did not complete her run. Patient vitals and blood sugars are stable when this happened. Patient did report having some diarrhea however this has since resolved. Reason For Visit: ESRD,PNEUMONIA,DIABETES Physical Exam Vital Signs: Temp Pulse Resp BP Pulse Ox 99.0 F 65 18 170/86 H 95 10/02/17 19:26 10/02/17 21:01 10/02/17 21:01 10/02/17 20:57 10/02/17 21:01 Intake & Output 10/01/17 10/02/17 10/03/17 06:59 06:59 06:59 Intake Total 447 1405 500 Output Total 2500 2100 Balance -2053 1405 -1600 Weight 62.8 kg 63.5 kg General appearance: PRESENT: no acute distress, well-developed, well-nourished Head exam: PRESENT: normocephalic Eye exam: PRESENT: EOMI. ABSENT: scleral icterus Ear exam: PRESENT: normal external ear exam Mouth exam: PRESENT: moist Neck exam: ABSENT: carotid bruit, JVD, lymphadenopathy, thyromegaly Respiratory exam: PRESENT: clear to auscultation hany. ABSENT: rales, rhonchi, wheezes Cardiovascular exam: PRESENT: RRR, other - Palpable thrill in left forearm. Dialysis cath and right subclavian.. ABSENT: diastolic murmur, rubs, systolic murmur Pulses: PRESENT: normal dorsalis pedis pul Vascular exam: PRESENT: normal capillary refill GI/Abdominal exam: PRESENT: normal bowel sounds, soft. ABSENT: distended, guarding, mass, organolmegaly, rebound, tenderness Rectal exam: PRESENT: deferred Extremities exam: PRESENT: full ROM. ABSENT: calf tenderness, clubbing, pedal edema Neurological exam: PRESENT: alert, awake, oriented to person, oriented to place , oriented to time, oriented to situation, CN II-XII grossly intact. ABSENT: motor sensory deficit Psychiatric exam: PRESENT: appropriate affect, normal mood. ABSENT: homicidal ideation, suicidal ideation Skin exam: PRESENT: dry, intact, warm. ABSENT: cyanosis, rash Results Laboratory Results: 10/02/17 05:26 10/02/17 05:26 10/02/17 10/02/17 05:26 05:26 WBC 4.5 RBC 3.77 Hgb 12.0 Hct 36.0 MCV 96 MCH 32.0 MCHC 33.5 RDW 13.7 Plt Count 208 Seg Neutrophils % 57.1 Lymphocytes % 28.1 Monocytes % 12.7 Eosinophils % 1.6 Basophils % 0.5 Absolute Neutrophils 2.6 Absolute Lymphocytes 1.3 Absolute Monocytes 0.6 Absolute Eosinophils 0.1 Absolute Basophils 0.0 Sodium 138.6 Potassium 4.1 Chloride 102 Carbon Dioxide 23 Anion Gap 14 BUN 68 H Creatinine 3.95 H Est GFR ( Amer) 13 L Est GFR (Non-Af Amer) 11 L Glucose 60 L Calcium 9.0 09/29/17 09/29/17 09/29/17 01:51 01:51 06:45 Creatine Kinase 1010 H 904 H CK-MB (CK-2) 1.15 Troponin I 0.045 09/29/17 06:45 Creatine Kinase CK-MB (CK-2) 1.04 Troponin I 0.048 Impressions: Chest X-Ray 09/28/17 16:27 IMPRESSION: Dual lumen catheter without evidence of complication. No evidence of acute cardiopulmonary abnormality. Head CT 09/29/17 00:00 IMPRESSION: NO CT EVIDENCE OF ACUTE ISCHEMIA, HEMORRHAGE, OR MASS LESION. SYMMETRIC CALCIFICATIONS INVOLVING THE BASAL GANGLIA, THALAMUS, AND CEREBELLUM WHICH IS NONSPECIFIC IN BEGINS SECONDARY TO METABOLIC DISORDERS, DEGENERATIVE PROCESS, OR PHYSIOLOGIC. CORRELATE WITH PATIENT'S CLINICAL HISTORY. Assessment & Plan - Diagnosis (1) Pneumonia Qualifiers: Pneumonia type: due to unspecified organism Laterality: unspecified laterality Lung location: unspecified part of lung Qualified Code(s): J18.9 - Pneumonia, unspecified organism Is this a current diagnosis for this admission?: Yes Plan: Continue vancomycin. Will discontinue Zosyn as patient has developed diarrhea. She continues to have cough but overall she has improved patient clinically. Will start patient on antitussives. (2) Anemia in chronic kidney disease (CKD) Is this a current diagnosis for this admission?: Yes Plan: Patient hemoglobin stable. Continue supportive care. (3) Dyslipidemia Is this a current diagnosis for this admission?: Yes Plan: Continue statin. (4) Severe headache Is this a current diagnosis for this admission?: Yes Plan: CT head was negative. Patient continued on Fioricet as needed. Patient is no longer complaining of headache. This could have been secondary to her diagnosis of pneumonia and dehydration. (5) End-stage renal disease on hemodialysis Is this a current diagnosis for this admission?: Yes Plan: Plan for dialysis Saturday. Patient did not complete her run of dialysis due to syncopal episode. Dr. Zheng is following. (6) Neutropenia Is this a current diagnosis for this admission?: Yes Plan: Mostly due to his acute infection. Resolved (7) Diarrhea Is this a current diagnosis for this admission?: Yes Plan: Patient had a few episodes of diarrhea. This is possibly secondary to the Zosyn. Will discontinue to Zosyn and continue with the vancomycin. Will consider starting patient on doxycycline. If diarrhea persists will order a C. difficile. - Time Time Spent with patient: 15-24 minutes Anticipated discharge: Home with Homehealth Within: within 72 hours - Inpatient Certification Medical Necessity: Need for IV Antibiotics
[2017-10-03] MEDS: INSULIN LISPRO 100 UNIT/ML 3 ML VIAL SUBCUT PRN ×2 (13:13→21:25)
--- NOTE | 2017-10-03 16:57 | PDOC PROGRESS REPORT ---
Subjective Progress Note for:: 10/03/17 Subjective:: Patient presented with pneumonia. Patient states she is feeling better. Patient still continues to have a cough. Her sore throat is better. Patient did work with physical therapy today and stated that it went well. Patient has not had any more diarrhea. Reason For Visit: ESRD,PNEUMONIA,DIABETES Physical Exam Vital Signs: Temp Pulse Resp BP Pulse Ox 98.2 F 61 19 137/66 H 97 10/03/17 16:03 10/03/17 16:03 10/03/17 16:03 10/03/17 16:03 10/03/17 16:03 Intake & Output 10/02/17 10/03/17 10/04/17 06:59 06:59 06:59 Intake Total 1405 1279 237 Output Total 2100 Balance 1405 -821 237 Weight 63.5 kg 63.8 kg General appearance: PRESENT: no acute distress, well-developed, well-nourished Head exam: PRESENT: normocephalic Eye exam: ABSENT: scleral icterus Ear exam: PRESENT: normal external ear exam Mouth exam: PRESENT: moist Neck exam: ABSENT: carotid bruit, JVD, lymphadenopathy, thyromegaly Respiratory exam: PRESENT: clear to auscultation hany. ABSENT: rales, rhonchi, wheezes Cardiovascular exam: PRESENT: RRR. ABSENT: diastolic murmur, rubs, systolic murmur Pulses: PRESENT: normal dorsalis pedis pul Vascular exam: PRESENT: other - Palpable thrill and left forearm GI/Abdominal exam: PRESENT: normal bowel sounds, soft. ABSENT: distended, guarding, mass, organolmegaly, rebound, tenderness Rectal exam: PRESENT: deferred Extremities exam: PRESENT: full ROM. ABSENT: calf tenderness, clubbing, pedal edema Neurological exam: PRESENT: alert, awake, oriented to person, oriented to place , oriented to time, oriented to situation, CN II-XII grossly intact. ABSENT: motor sensory deficit Psychiatric exam: PRESENT: appropriate affect, normal mood. ABSENT: homicidal ideation, suicidal ideation Skin exam: PRESENT: dry, intact, warm. ABSENT: cyanosis, rash Results Laboratory Results: 10/02/17 05:26 10/02/17 05:26 09/29/17 09/29/17 09/29/17 01:51 01:51 06:45 Creatine Kinase 1010 H 904 H CK-MB (CK-2) 1.15 Troponin I 0.045 09/29/17 06:45 Creatine Kinase CK-MB (CK-2) 1.04 Troponin I 0.048 Impressions: Chest X-Ray 09/28/17 16:27 IMPRESSION: Dual lumen catheter without evidence of complication. No evidence of acute cardiopulmonary abnormality. Head CT 09/29/17 00:00 IMPRESSION: NO CT EVIDENCE OF ACUTE ISCHEMIA, HEMORRHAGE, OR MASS LESION. SYMMETRIC CALCIFICATIONS INVOLVING THE BASAL GANGLIA, THALAMUS, AND CEREBELLUM WHICH IS NONSPECIFIC IN BEGINS SECONDARY TO METABOLIC DISORDERS, DEGENERATIVE PROCESS, OR PHYSIOLOGIC. CORRELATE WITH PATIENT'S CLINICAL HISTORY. Assessment & Plan - Diagnosis (1) Pneumonia Qualifiers: Pneumonia type: due to unspecified organism Laterality: unspecified laterality Lung location: unspecified part of lung Qualified Code(s): J18.9 - Pneumonia, unspecified organism Is this a current diagnosis for this admission?: Yes Plan: Patient was on vancomycin and Zosyn. Patient has not grown anything on her cultures. Will de-escalate her antibiotics. Will start patient on doxycycline p.o. 100 twice daily. Will continue antitussives. (2) Anemia in chronic kidney disease (CKD) Is this a current diagnosis for this admission?: Yes Plan: Patient hemoglobin stable. Continue supportive care. (3) Dyslipidemia Is this a current diagnosis for this admission?: Yes Plan: Continue statin. (4) Severe headache Is this a current diagnosis for this admission?: Yes Plan: Resolved CT head was negative. Patient continued on Fioricet as needed. This could have been secondary to her diagnosis of pneumonia and dehydration. (5) End-stage renal disease on hemodialysis Is this a current diagnosis for this admission?: Yes Plan: Plan for dialysis Saturday. Patient did not complete her run of dialysis due to syncopal episode. Dr. Zheng is following. (6) Neutropenia Is this a current diagnosis for this admission?: Yes Plan: Mostly due to his acute infection. Resolved (7) Diarrhea Is this a current diagnosis for this admission?: Yes Plan: Resolved. This is most likely due to Zosyn. Continue probiotic. - Time Time Spent with patient: Less than 15 minutes Anticipated discharge: Home Within: within 48 hours
[2017-10-03] MEDS: AMLODIPINE BESYLATE 10 MG TABLET PO SCH (17:49)
[2017-10-03] MEDS: ATORVASTATIN CALCIUM 20 MG TABLET PO SCH (21:15)
[2017-10-03] MEDS: DOXYCYCLINE HYCLATE 100 MG TABLET PO SCH (21:15)
[2017-10-04] MEDS: IPRATROPIUM/ALBUTEROL 0.5-2.5 MG/3 ML AMPUL NEB SCH ×3 (02:15→14:10)
[2017-10-04] MEDS ORDERED: NORMAL SALINE 1000 ML 1,000 ML IV PRN (05:00)
[2017-10-04] MEDS ORDERED: HEPARIN SOD (PORCINE) 1,000 UNIT/ML 10 ML VIAL IV PRN ×2 (05:00→11:23)
[2017-10-04] MEDS: BENZONATATE 100 MG CAPSULE PO SCH ×2 (06:04→13:04)
[2017-10-04] MEDS: LEVOTHYROXINE SODIUM 0.025 MG TABLET PO SCH (06:04)
[2017-10-04] MEDS: HEPARIN SOD (PORCINE) 5,000 UNIT/ML 1 ML SYRINGE SUBCUT SCH ×2 (06:04→13:05)
[2017-10-04 06:15] LABS: ABSOLUTE EOSINOPHILS # (AUTO) 0.1 10^3/uL (0.0-0.6); ABSOLUTE LYMPHOCYTES (AUTO) 1.9 10^3/uL (0.5-4.7); ABSOLUTE MONOCYTES (AUTO) 0.6 10^3/uL (0.1-1.4); ABSOLUTE NEUT (AUTO) 1.5 10^3/uL (1.7-8.2); BASOPHILS % (AUTO) 0.6 % (0-2); EOSINOPHILS % (AUTO) 2.7 % (0-6); HEMATOCRIT 33.7 % (36.0-47.0); HEMOGLOBIN 11.3 g/dL (12.0-15.5); LYMPHOCYTES % (AUTO) 45.5 % (13-45); MEAN CORPUSCULAR HEMOGLOBIN 31.9 pg (27.0-33.4); MEAN CORPUSCULAR HGB CONC 33.5 g/dL (32.0-36.0); MEAN CORPUSCULAR VOLUME 95 fl (80-97); PLATELET COUNT 190 10^3/uL (150-450); RED BLOOD COUNT 3.53 10^6/uL (3.72-5.28); RED CELL DISTRIBUTION WIDTH 13.8 % (11.5-14.0); SEGMENTED NEUTROPHILS % (AUTO) 37.2 % (42-78); TOTAL CELLS COUNTED % (AUTO) 100 %; WHITE BLOOD COUNT 4.2 10^3/uL (4.0-10.5)
[2017-10-04 06:30] LABS: ANION GAP 14 (5-19); BLOOD UREA NITROGEN 83 mg/dL (7-20); CALCIUM 8.1 mg/dL (8.4-10.2); CARBON DIOXIDE 22 mmol/L (22-30); CHLORIDE 99 mmol/L (98-107); GLUCOSE 68 mg/dL (75-110); POTASSIUM 4.3 mmol/L (3.6-5.0); SODIUM 135.3 mmol/L (137-145)
[2017-10-04] MEDS: CHOLECALCIFEROL (D3) 1,000 UNIT TABLET PO SCH (12:48)
[2017-10-04] MEDS: ASCORBIC ACID 500 MG TABLET PO SCH (12:49)
[2017-10-04] MEDS: FENOFIBRATE NANOCRYSTALLIZED 145 MG TABLET PO SCH (12:49)
[2017-10-04] MEDS: GUAIFENESIN 600 MG TABLET.SA PO SCH (12:49)
[2017-10-04] MEDS: OMEGA-3 ACID ETHYL ESTERS 1 GM CAPSULE PO SCH (12:49)
[2017-10-04] MEDS: CARVEDILOL 12.5 MG TABLET PO SCH (12:50)
[2017-10-04] MEDS: ASPIRIN 81 MG TABLET, ENT COATED PO SCH (12:51)
[2017-10-04] MEDS: FOLIC ACID/VITAMIN B COMP W-C CAPSULE PO SCH (12:51)
[2017-10-04] MEDS: LACTOBACILLUS ACIDOPHILUS 250 MG TAB PO SCH (12:51)
[2017-10-04] MEDS: FLUTICASONE NASAL SPRAY 50 MCG/SPRY 120 SPRAY/16 GM NASL SCH (12:51)
[2017-10-04] MEDS: HUM INSULIN NPH/REG INSULIN HM 100 UNIT/1 ML 3 ML SUBCUT SCH (12:53)
[2017-10-04] MEDS: DOXYCYCLINE HYCLATE 100 MG TABLET PO SCH (13:00)
--- NOTE | 2017-10-04 14:03 | PDOC PROGRESS REPORT ---
Subjective Progress Note for:: 10/04/17 Subjective:: I saw the patient during dialysis this morning at around 8:25 AM. She was still having some dry hacking cough and gets short of breath whenever she was coughing. However overall she feels better except for the diarrhea. She said she is eating fine. She denies any other complaints. She tolerated dialysis well. She expressed her concern that if she gets to be discharged today, with the diarrhea she is having she may not make it home from here to [place]. I told her to inform the hospitalist service about this and if she is not comfortable she may need to stay here for at least 24 hours until she is little bit better with diarrhea. Reason For Visit: ESRD,PNEUMONIA,DIABETES Physical Exam Vital Signs: Temp Pulse Resp BP Pulse Ox 97.9 F 70 18 173/39 H 97 10/04/17 12:45 10/04/17 12:45 10/04/17 12:45 10/04/17 12:45 10/04/17 12:45 Intake & Output 10/03/17 10/04/17 10/05/17 06:59 06:59 06:59 Intake Total 1279 919 474 Output Total 2100 Balance -821 919 474 Weight 63.8 kg 63.7 kg Vitals during dialysis: Blood pressure 149/64, heart rate of 67, blood flow rate of 300 mL/min, dialysate flow rate of 600 mL/min. Exam: General appearance: PRESENT: no acute distress, cooperative, well-developed, well-nourished Head exam: PRESENT: atraumatic, normocephalic Eye exam: PRESENT: conjunctiva pink, PERRLA. ABSENT: scleral icterus Neck exam: ABSENT: JVD Respiratory exam: PRESENT: Diminished breath sounds. Bilateral basal crackles ABSENT: rhonchi, unlabored, wheezes Cardiovascular exam: PRESENT: Regular rate rhythm -+S1, +S2. ABSENT: diastolic murmur, systolic murmur GI/Abdominal exam: PRESENT: normal bowel sounds, soft. ABSENT: guarding, mass, tenderness Extremities exam: ABSENT: No edema Neurological exam: PRESENT: alert, awake, oriented to person, place and time. Skin exam: PRESENT: dry, warm, Results Laboratory Results: 10/04/17 05:46 10/04/17 05:46 10/04/17 10/04/17 05:46 05:46 WBC 4.2 RBC 3.53 L Hgb 11.3 L Hct 33.7 L MCV 95 MCH 31.9 MCHC 33.5 RDW 13.8 Plt Count 190 Seg Neutrophils % 37.2 L Lymphocytes % 45.5 H Monocytes % 14.0 H Eosinophils % 2.7 Basophils % 0.6 Absolute Neutrophils 1.5 L Absolute Lymphocytes 1.9 Absolute Monocytes 0.6 Absolute Eosinophils 0.1 Absolute Basophils 0.0 Sodium 135.3 L Potassium 4.3 Chloride 99 Carbon Dioxide 22 Anion Gap 14 BUN 83 H Creatinine 5.11 H Est GFR ( Amer) 10 L Est GFR (Non-Af Amer) 8 L Glucose 68 L Calcium 8.1 L 09/29/17 09/29/17 09/29/17 01:51 01:51 06:45 Creatine Kinase 1010 H 904 H CK-MB (CK-2) 1.15 Troponin I 0.045 09/29/17 06:45 Creatine Kinase CK-MB (CK-2) 1.04 Troponin I 0.048 Impressions: Chest X-Ray 09/28/17 16:27 IMPRESSION: Dual lumen catheter without evidence of complication. No evidence of acute cardiopulmonary abnormality. Head CT 09/29/17 00:00 IMPRESSION: NO CT EVIDENCE OF ACUTE ISCHEMIA, HEMORRHAGE, OR MASS LESION. SYMMETRIC CALCIFICATIONS INVOLVING THE BASAL GANGLIA, THALAMUS, AND CEREBELLUM WHICH IS NONSPECIFIC IN BEGINS SECONDARY TO METABOLIC DISORDERS, DEGENERATIVE PROCESS, OR PHYSIOLOGIC. CORRELATE WITH PATIENT'S CLINICAL HISTORY. Assessment & Plan - Diagnosis (1) End-stage renal disease on hemodialysis Is this a current diagnosis for this admission?: Yes Plan: We did dialysis today for 3 hours, using the patient's PermCath, with 2 potassium bath, blood flow rate of 300-450 mL per minute, dialysate flow rate of 600 mL per minute, ultrafiltration 2 L, no heparin and no Procrit during dialysis. Patient tolerated dialysis without any problems or complications. Her next dialysis if discharged today will be at Saturday. (2) Anemia in chronic kidney disease (CKD) Is this a current diagnosis for this admission?: Yes Plan: Procrit as needed during dialysis. (3) Pneumonia Qualifiers: Pneumonia type: due to unspecified organism Laterality: unspecified laterality Lung location: unspecified part of lung Qualified Code(s): J18.9 - Pneumonia, unspecified organism Is this a current diagnosis for this admission?: Yes Plan: Defer to the hospitalist service. (4) Hypertension Is this a current diagnosis for this admission?: Yes (5) Diabetes Qualifiers: Diabetes mellitus type: type 2 Diabetes mellitus complication detail: with nephropathy Is this a current diagnosis for this admission?: Yes - Time Time with patient: 15-25 minutes
[2017-10-04 16:33] VITALS: BP 129/45
--- NOTE | 2017-10-05 10:51 | PDOC DISCHARGE SUMMARY ---
General - Admit/Disc Date/PCP Admission Date/Primary Care Provider: 09/28/17 19:47 Discharge Date: 10/04/17 - Discharge Diagnosis (1) Pneumonia Is this a current diagnosis for this admission?: Yes (2) Anemia in chronic kidney disease (CKD) Is this a current diagnosis for this admission?: Yes (3) Dyslipidemia Is this a current diagnosis for this admission?: Yes (4) Severe headache Is this a current diagnosis for this admission?: Yes (5) End-stage renal disease on hemodialysis Is this a current diagnosis for this admission?: Yes (6) Neutropenia Is this a current diagnosis for this admission?: Yes (7) Diarrhea Is this a current diagnosis for this admission?: Yes - Additional Information Resuscitation Status: Full Code Discharge Diet: Other (Comments) Discharge Activity: Activity As Tolerated Prescriptions: Benzonatate [Tessalon Perles 100 mg Capsule] 100 mg PO Q8 PRN 4 Days #12 capsule PRN Reason: Cough Doxycycline Hyclate [Vibramycin 100 mg Tablet] 100 mg PO Q12 #10 tablet Home Medications: Amlodipine Besylate [Norvasc 10 mg Tablet] 10 mg PO QPM 09/29/17 Ascorbic Acid [Vitamin C 500 mg Tablet] 500 mg PO BID 09/29/17 Aspirin [Aspirin EC] 81 mg PO DAILY 09/29/17 Atorvastatin Calcium [Lipitor 20 mg Tablet] 20 mg PO DAILY 09/29/17 B Complex W-C No.20/Folic Acid [Renal Caps Softgel] 1 mg PO DAILY 09/29/17 Carvedilol [Coreg 25 mg Tablet] 25 mg PO Q12 09/29/17 Cholecalciferol (Vitamin D3) [Vitamin D3 5000 unit Capsule] 5,000 unit PO DAILY 09/29/17 Clonidine [Catapres-Tts 3 (0.3 mg/24 Hr) Transderm Patch] 1 patch TD MO@1000 Diphenhydramine HCl [Benadryl Allergy] 25 mg PO Q6HP PRN 09/29/17 Fenofibrate Nanocrystallized [Tricor 145 mg Tablet] 145 mg PO DAILY 09/29/17 Furosemide [Lasix 40 mg Tablet] 40 mg PO SUMOWE@1000 09/29/17 Glucosamine Sulfate Dipot Chlr [Glucosamine] 1,500 mg PO BID 09/29/17 Hydralazine HCl 100 mg PO Q12 09/29/17 Insulin Aspart Protam & Aspart [Novolog Mix 70-30 Vial] 35 unit SQ QAM 09/29/17 Insulin Aspart Protam & Aspart [Novolog Mix 70-30 Vial] 40 unit SQ QPM 09/29/17 Levothyroxine Sodium [Synthroid] 25 mcg PO DAILY 09/29/17 Lisinopril [Prinivil 40 mg Tablet] 20 mg PO SUMOWE@1000,1800 09/29/17 Lisinopril [Prinivil 40 mg Tablet] 20 mg PO TUTHSA@1800 09/29/17 Melatonin 2 mg PO QHS 09/29/17 [place]-3 Fatty Acids/Fish Oil [[place] 3 Fish Oil Softgel] 2 each PO DAILY Benzonatate [Tessalon Perles 100 mg Capsule] 100 mg PO Q8 PRN 4 Days #12 capsule 10/04/17 Doxycycline Hyclate [Vibramycin 100 mg Tablet] 100 mg PO Q12 #10 tablet History of Present Illness History of Present Illness: YAHAIRA MCKEON is a 76 year old female with a past medical history of chronic kidney disease on hemodialysis Saturday, hypertension, dyslipidemia and diabetes. Patient presents with 6 hours of shortness of breath , nonproductive cough, fever and rigors which limited her hemodialysis to 2 hours today. In the emergency room she is found to have a fever of 100.8, oxygen saturation of 90% on room air, Reiger's and rhonchi. She denies infectious contacts, influenza or pneumonia vaccinations or recent antibiotics. She is negative for influenza and started on empiric antibiotics for pneumonia. She denies chest pain. This H&P was dictated by Dr. Swanson. Please refer to H&P dictated by him for complete details. Hospital Course Hospital Course: She was admitted with pneumonia. Patient was initially started on Zosyn and vancomycin. Patient shows significant improvement. However patient started to develop diarrhea while being on Zosyn. Zosyn was discontinued. Shortly after vancomycin was discontinued PCP. Patient was transitioned to doxycycline p.o. twice daily that did not require renal dosing. Patient diarrhea did resolve. Patient was placed on lactobacillus. Patient continued to have a cough. Patient was given antitussives. Patient headache did resolve. Patient had a CT scan done of her head initially which was negative. Thoughts were that her headache was due to her acute illness. Patient does have anemia of chronic kidney disease. Patient receives Epogen. Patient hemoglobin was stable. Patient was continued on her statin for dyslipidemia. Patient with end-stage renal disease and is currently on dialysis Saturday. Patient follows with Dr. Zheng. She was leukopenic however not neutropenic. This is mostly due to her acute infection. This did resolve prior to discharge. Patient is doing significantly better. Patient did ambulate with therapy. Patient is being discharged home to follow-up with her PCP. Physical Exam Vital Signs: Temp Pulse Resp BP Pulse Ox 97.6 F 67 15 129/45 H 97 10/04/17 16:00 10/04/17 16:00 10/04/17 16:00 10/04/17 16:00 10/04/17 16:00 Intake & Output 10/03/17 10/04/17 10/05/17 06:59 06:59 06:59 Intake Total 1279 919 474 Output Total 2100 2300 Balance -821 919 -1826 Weight 63.8 kg 63.7 kg General appearance: PRESENT: no acute distress, well-developed, well-nourished Head exam: PRESENT: normocephalic Eye exam: PRESENT: EOMI. ABSENT: scleral icterus Mouth exam: PRESENT: moist Neck exam: ABSENT: carotid bruit, JVD, lymphadenopathy, thyromegaly Respiratory exam: PRESENT: clear to auscultation hany. ABSENT: rales, rhonchi, wheezes Cardiovascular exam: PRESENT: RRR, other - Left arm palpable thrill.. ABSENT: diastolic murmur, rubs, systolic murmur Pulses: PRESENT: normal dorsalis pedis pul GI/Abdominal exam: PRESENT: normal bowel sounds, soft. ABSENT: distended, guarding, mass, organolmegaly, rebound, tenderness Rectal exam: PRESENT: deferred Extremities exam: PRESENT: full ROM. ABSENT: calf tenderness, clubbing, pedal edema Neurological exam: PRESENT: alert, awake, oriented to person, oriented to place , oriented to time, oriented to situation, CN II-XII grossly intact. ABSENT: motor sensory deficit Psychiatric exam: PRESENT: appropriate affect, normal mood. ABSENT: homicidal ideation, suicidal ideation Skin exam: PRESENT: dry, intact, warm. ABSENT: cyanosis, rash Results Laboratory Results: 10/04/17 05:46 10/04/17 05:46 10/04/17 10/04/17 05:46 05:46 WBC 4.2 RBC 3.53 L Hgb 11.3 L Hct 33.7 L MCV 95 MCH 31.9 MCHC 33.5 RDW 13.8 Plt Count 190 Seg Neutrophils % 37.2 L Lymphocytes % 45.5 H Monocytes % 14.0 H Eosinophils % 2.7 Basophils % 0.6 Absolute Neutrophils 1.5 L Absolute Lymphocytes 1.9 Absolute Monocytes 0.6 Absolute Eosinophils 0.1 Absolute Basophils 0.0 Sodium 135.3 L Potassium 4.3 Chloride 99 Carbon Dioxide 22 Anion Gap 14 BUN 83 H Creatinine 5.11 H Est GFR ( Amer) 10 L Est GFR (Non-Af Amer) 8 L Glucose 68 L Calcium 8.1 L 09/29/17 09/29/17 09/29/17 01:51 01:51 06:45 Creatine Kinase 1010 H 904 H CK-MB (CK-2) 1.15 Troponin I 0.045 09/29/17 06:45 Creatine Kinase CK-MB (CK-2) 1.04 Troponin I 0.048 Impressions: Chest X-Ray 09/28/17 16:27 IMPRESSION: Dual lumen catheter without evidence of complication. No evidence of acute cardiopulmonary abnormality. Head CT 09/29/17 00:00 IMPRESSION: NO CT EVIDENCE OF ACUTE ISCHEMIA, HEMORRHAGE, OR MASS LESION. SYMMETRIC CALCIFICATIONS INVOLVING THE BASAL GANGLIA, THALAMUS, AND CEREBELLUM WHICH IS NONSPECIFIC IN BEGINS SECONDARY TO METABOLIC DISORDERS, DEGENERATIVE PROCESS, OR PHYSIOLOGIC. CORRELATE WITH PATIENT'S CLINICAL HISTORY. Qualifiers PATEINT BEING DISCHARGED WITH ANY OF THE FOLLOWING DIAGNOSIS?: No Plan Time Spent: Greater than 30 Minutes - Patient being discharged home with 4 more days of doxycycline to complete a 10 day course of antibiotic therapy. Patient also being given Tessalon Perles to take as needed for cough. Patient to resume her regular dialysis schedule.
== END 2017-10-04 17:11 | disposition home health service (06) | DRG 193 ==
LOC: ER 14:43 → EH 19:47 → 3S 09-30 14:23
PROVIDERS: ADMIT Internal Medicine; ATTEND Internal Medicine
PROC: 5A1D70Z Performance of Urinary Filtration, Intermittent, Less than 6 Hours Per Day (ICD-10-PCS; principal; 2017-09-30)
PROC: 5A1D70Z Performance of Urinary Filtration, Intermittent, Less than 6 Hours Per Day (ICD-10-PCS; 2017-10-02)
PROC: 5A1D70Z Performance of Urinary Filtration, Intermittent, Less than 6 Hours Per Day (ICD-10-PCS; 2017-10-04)
DX: J18.9 Pneumonia, unspecified organism (principal); N18.6 End stage renal disease; I12.0 Hypertensive chronic kidney disease with stage 5 chronic kidney disease or end stage renal disease; D63.1 Anemia in chronic kidney disease; E11.22 Type 2 diabetes mellitus with diabetic chronic kidney disease; K21.9 Gastro-esophageal reflux disease without esophagitis; F32.9 Major depressive disorder, single episode, unspecified; E11.21 Type 2 diabetes mellitus with diabetic nephropathy; E78.5 Hyperlipidemia, unspecified; R19.7 Diarrhea, unspecified; R51 Headache; Z99.2 Dependence on renal dialysis; Z79.82 Long term (current) use of aspirin; Z79.899 Other long term (current) drug therapy; Z87.891 Personal history of nicotine dependence; Z88.8 Allergy status to other drugs, medicaments and biological substances
CPT/HCPCS: 36415; 70450; 71046; 80048; 80202; 82550; 82553; 82962; 83605; 83735; 84484; 85025; 85027; 87040; 87804; 94640; 94667; 94668; 94799; 96374; 99285; G0257; G8978-GP; G8979-GP; G8980-GP; G8987-GO; G8988-GO; G8989-GO; J0696; J1644; J1815; J1956; J2543; J3370; J3490; J7030; J7060; J7620

== ENCOUNTER 2017-10-28 09:53 | Emergency (ER) | payer MEDICARE, OTHER ==
--- NOTE | 2017-10-28 10:24 | ER Document Report ---
ED Medical Screen (RME) - General Chief Complaint: Headache Stated Complaint: HEADACHE Time Seen by Provider: 10/28/17 10:23 Notes: Patient is on dialysis. She last had dialysis on Saturday and it was a normal run. She began to have severe bilateral headache on Saturday that has not abated. She denies any trauma. She was recently hospitalized with pneumonia approximate 1 month ago but states this is now better. She denies any fevers. TRAVEL OUTSIDE OF THE [place] IN LAST 30 DAYS: No - Related Data Allergies/Adverse Reactions: tolterodine tartrate [From Evtron] Allergy (Verified 10/28/17 09:56) Hives Past Medical History - Social History Frequency of alcohol use: None Drug Abuse: None Family history: Reviewed & Not Pertinent - Past Medical History Cardiac Medical History: Reports: Hx Hypercholesterolemia, Hx Hypertension Denies: Hx Atrial Fibrillation, Hx Congestive Heart Failure, Hx Coronary Artery Disease, Hx Heart Attack, Hx Peripheral Vascular Disease, Hx Heart Murmur Pulmonary Medical History: Reports: Hx Pneumonia Denies: Hx Asthma - EXERTIONAL BECOMES SOB, Hx Bronchitis, Hx COPD, Hx Tuberculosis Neurological Medical History: Denies: Hx Cerebrovascular Accident, Hx Seizures Endocrine Medical History: Reports: Hx Diabetes Mellitus Type 1, Hx Diabetes Mellitus Type 2 Renal/ Medical History: Reports: Hx End Stage Renal Disease, Hx Hemodialysis - Did not finish hemodialysis today. Denies: Hx Peritoneal Dialysis GI Medical History: Reports: Hx Gastroesophageal Reflux Disease, Hx Irritable Bowel, Hx Ulcer Musculoskeltal Medical History: Reports Hx Arthritis - Osteoarthritis Psychiatric Medical History: Reports: Hx Depression Past Surgical History: Reports: Hx Appendectomy - 01/15/12, Hx Section - x 1, Hx Orthopedic Surgery - left index finer, Hx Vascular Surgery - PermCath placement for dialysis. Denies: Hx Pacemaker, Hx Tonsillectomy - Immunizations Hx Diphtheria, Pertussis, Tetanus Vaccination: Yes History of Influenza Vaccine for 06/2017 - 11/2017 Season: Refused Physical Exam - Vital signs Vitals: Temp Pulse Resp BP Pulse Ox 98.4 F 73 24 H 163/44 H 95 10/28/17 10:16 10/28/17 10:16 10/28/17 10:16 10/28/17 10:16 10/28/17 10:16 Course - Vital Signs Vital signs: Temp Pulse Resp BP Pulse Ox 98.4 F 73 24 H 163/44 H 95 10/28/17 10:16 10/28/17 10:16 10/28/17 10:16 10/28/17 10:16 10/28/17 10:16
[2017-10-28 11:01] LABS: ABSOLUTE EOSINOPHILS # (AUTO) 0.1 10^3/uL (0.0-0.6); ABSOLUTE LYMPHOCYTES (AUTO) 1.2 10^3/uL (0.5-4.7); ABSOLUTE MONOCYTES (AUTO) 0.5 10^3/uL (0.1-1.4); ABSOLUTE NEUT (AUTO) 2.3 10^3/uL (1.7-8.2); BASOPHILS % (AUTO) 0.5 % (0-2); EOSINOPHILS % (AUTO) 1.6 % (0-6); HEMATOCRIT 35.7 % (36.0-47.0); LYMPHOCYTES % (AUTO) 29.5 % (13-45); MEAN CORPUSCULAR HEMOGLOBIN 32.8 pg (27.0-33.4); MEAN CORPUSCULAR HGB CONC 33.5 g/dL (32.0-36.0); MEAN CORPUSCULAR VOLUME 98 fl (80-97); MONOCYTES % (AUTO) 12.2 % (3-13); PLATELET COUNT 213 10^3/uL (150-450); RED BLOOD COUNT 3.65 10^6/uL (3.72-5.28); RED CELL DISTRIBUTION WIDTH 14.9 % (11.5-14.0); SEGMENTED NEUTROPHILS % (AUTO) 56.2 % (42-78); TOTAL CELLS COUNTED % (AUTO) 100 %; WHITE BLOOD COUNT 4.1 10^3/uL (4.0-10.5)
--- NOTE | 2017-10-28 11:08 | RADIOLOGY REPORT (SQ) ---
EXAM DESCRIPTION: CT HEAD WITHOUT COMPLETED DATE/TIME: 10/28/2017 10:53 am REASON FOR STUDY: pain COMPARISON: 09/29/2017 TECHNIQUE: Axial images acquired through the brain without intravenous contrast. Images reviewed wi th bone, brain and subdural windows. Images stored on PACS. All CT scanners at this facility use dose modulation, iterative reconstruction, and/or weight based d osing when appropriate to reduce radiation dose to as low as reasonably achievable (ALARA). [facility]: Dose Right [facility]: CareDose [facility]: Dose Right [facility]: Teradose 4D [facility]: [employer] RADIATION DOSE: CT Rad equipment meets quality standard of care and radiation dose reduction techniq ues were employed. CTDIvol: 64.6 mGy. DLP: 1163 mGy-cm. mGy. LIMITATIONS: None. FINDINGS: VENTRICLES: Normal size and contour. CEREBRUM: No masses. No hemorrhage. No midline shift. No evidence for acute infarction. Normal gra y/white matter differentiation. No areas of low density in the white matter. Symmetric calcification s stable involving basal ganglia and left thalamus. Consider metabolic disorder. CEREBELLUM: No masses. No hemorrhage. No alteration of density. No evidence for acute infarction. Symmetric stable calcifications peer EXTRAAXIAL SPACES: No fluid collections. No masses. ORBITS AND GLOBE: No intra- or extraconal masses. Normal contour of globe without masses. CALVARIUM: No fracture. PARANASAL SINUSES: Fluid/thickening noted ethmoid sinus and frontal sinus. SOFT TISSUES: No mass or hematoma. OTHER: No other significant finding. IMPRESSION: Sinusitis. No acute intracranial changes. EVIDENCE OF ACUTE STROKE: NO. COMMENT: Quality ID # [id number]: Final reports with documentation of one or more dose reduction techniques (e.g., Automated exposure control, adjustment of the mA and/or kV according to patient size, use of iterative reconstruction technique) TECHNICAL DOCUMENTATION: JOB ID: [id number] [employer]- All Rights Reserved
[2017-10-28 11:22] LABS: ALANINE AMINOTRANSFERASE 31 U/L (9-52); ALBUMIN 4.2 g/dL (3.5-5.0); ALKALINE PHOSPHATASE 42 U/L (38-126); ANION GAP 11 (5-19); ASPARTATE AMINO TRANSFERASE 36 U/L (14-36); BILIRUBIN,DIRECT 0.3 mg/dL (0.0-0.4); BILIRUBIN,TOTAL 0.4 mg/dL (0.2-1.3); BLOOD UREA NITROGEN 32 mg/dL (7-20); CALCIUM 9.3 mg/dL (8.4-10.2); CARBON DIOXIDE 28 mmol/L (22-30); CHLORIDE 106 mmol/L (98-107); GLUCOSE 107 mg/dL (75-110); POTASSIUM 4.9 mmol/L (3.6-5.0); SODIUM 144.7 mmol/L (137-145); TOTAL PROTEIN 6.3 g/dL (6.3-8.2)
[2017-10-28] MEDS ORDERED: ONDANSETRON 4 MG TAB.RAPDIS PO ONE (12:48)
[2017-10-28] MEDS ORDERED: AMOXICILLIN TRIHYDRATE 500 MG CAPSULE PO ONE (12:48)
[2017-10-28] MEDS ORDERED: PROCHLORPERAZINE MALEATE 5 MG TABLET PO ONE (12:48)
--- NOTE | 2017-10-28 12:54 | ER Document Report ---
ED Headache - General Chief Complaint: Headache Stated Complaint: HEADACHE Time Seen by Provider: 10/28/17 10:23 TRAVEL OUTSIDE OF THE [place] IN LAST 30 DAYS: No - HPI Patient complains to provider of: Headache Notes: Patient coming in for evaluation of headache ongoing for the last 4 days. Patient states on top of her head bilaterally. Patient states minor sinus congestion states that she is unable to blow her nose. Denies any cough fever chills nausea vomiting. Patient is a renal dialysis patient states she is scheduled for dialysis tomorrow. Denies any trauma resting comfortably upon my evaluation. - Related Data Allergies/Adverse Reactions: tolterodine tartrate [From Detrol] Allergy (Verified 10/28/17 09:56) Hives Past Medical History - Social History Smoking Status: Never Smoker Frequency of alcohol use: None Drug Abuse: None Family History: COPD Patient has suicidal ideation: No Patient has homicidal ideation: No - Past Medical History Cardiac Medical History: Reports: Hx Hypercholesterolemia, Hx Hypertension Denies: Hx Atrial Fibrillation, Hx Congestive Heart Failure, Hx Coronary Artery Disease, Hx Heart Attack, Hx Peripheral Vascular Disease, Hx Heart Murmur Pulmonary Medical History: Reports: Hx Pneumonia Denies: Hx Asthma - EXERTIONAL BECOMES SOB, Hx Bronchitis, Hx COPD, Hx Tuberculosis Neurological Medical History: Denies: Hx Cerebrovascular Accident, Hx Seizures Endocrine Medical History: Reports: Hx Diabetes Mellitus Type 1, Hx Diabetes Mellitus Type 2 Renal/ Medical History: Reports: Hx End Stage Renal Disease, Hx Hemodialysis - Did not finish hemodialysis today. Denies: Hx Peritoneal Dialysis GI Medical History: Reports: Hx Gastroesophageal Reflux Disease, Hx Irritable Bowel, Hx Ulcer Musculoskeltal Medical History: Reports Hx Arthritis - Osteoarthritis Psychiatric Medical History: Reports: Hx Depression Past Surgical History: Reports: Hx Appendectomy - 01/15/12, Hx Section - x 1, Hx Orthopedic Surgery - left index finer, Hx Vascular Surgery - PermCath placement for dialysis. Denies: Hx Pacemaker, Hx Tonsillectomy - Immunizations Hx Diphtheria, Pertussis, Tetanus Vaccination: Yes Review of Systems - Review of Systems Constitutional: No symptoms reported EENT: No symptoms reported Cardiovascular: No symptoms reported Respiratory: No symptoms reported Gastrointestinal: No symptoms reported Genitourinary: No symptoms reported Female Genitourinary: No symptoms reported Musculoskeletal: No symptoms reported Skin: No symptoms reported Hematologic/Lymphatic: No symptoms reported Neurological/Psychological: Headaches -: Yes All other systems reviewed and negative Physical Exam - Vital signs Vitals: Temp Pulse Resp BP Pulse Ox 98.4 F 73 24 H 163/44 H 95 10/28/17 10:16 10/28/17 10:16 10/28/17 10:16 10/28/17 10:16 10/28/17 10:16 Interpretation: Normal - General General appearance: Appears well, Alert - HEENT Head: Normocephalic, Atraumatic Eyes: Normal Conjunctiva: Normal Cornea: Normal Pupils: PERRL Sinus: Tenderness - Tenderness of frontal maxillary sinus. Nasal: Normal Mucous membranes: Normal Pharynx: Normal Neck: Normal - Respiratory Respiratory status: No respiratory distress Chest status: Nontender Breath sounds: Normal Chest palpation: Normal - Cardiovascular Rhythm: Regular Heart sounds: Normal auscultation Murmur: No - Abdominal Inspection: Normal Distension: No distension Bowel sounds: Normal Tenderness: Nontender Organomegaly: No organomegaly - Back Back: Normal, Nontender - Extremities General upper extremity: Normal inspection, Nontender, Normal color, Normal ROM , Normal temperature General lower extremity: Normal inspection, Nontender, Normal color, Normal ROM , Normal temperature, Normal weight bearing. No: Lewis's sign - Neurological Neuro grossly intact: Yes Cognition: Normal Orientation: AAOx4 [place] Coma Scale Eye Opening: Spontaneous [place] Coma Scale Verbal: Oriented [place] Coma Scale Motor: Obeys Commands Cameron Coma Scale Total: 15 Speech: Normal Motor strength normal: LUE, RUE, LLE, RLE Sensory: Normal - Psychological Associated symptoms: Normal affect, Normal mood - Skin Skin Temperature: Warm Skin Moisture: Dry Skin Color: Normal Course - Re-evaluation Re-evalutation: 10/28/17 16:03 Patient laboratory studies not show any critical etiology. CT of the head does show sinusitis. Possible etiology of patient's pain. Patient was started on amoxicillin will give the patient Compazine Zofran for her headaches. Patient was discharged home. The patient presents with headache without signs of [employer] bleed, stroke, infection, or other serious etiology. The patient is neurologically intact. Given the extremely low risk of these diagnoses further testing and evaluation for these possibilities does not appear to be indicated at this time. The patient has been instructed to return if the symptoms worsen or change in any way.. - Vital Signs Vital signs: Temp Pulse Resp BP Pulse Ox 98.6 F 76 16 176/47 H 96 10/28/17 14:01 10/28/17 14:01 10/28/17 14:01 10/28/17 14:01 10/28/17 14:01 - Laboratory Result Diagrams: 10/28/17 10:45 10/28/17 10:45 Laboratory results interpreted by me: 10/28/17 10/28/17 10:45 10:45 RBC 3.65 L Hct 35.7 L MCV 98 H RDW 14.9 H BUN 32 H Creatinine 3.43 H Est GFR ( Amer) 16 L Est GFR (Non-Af Amer) 13 L Discharge - Discharge Clinical Impression: End-stage renal disease on hemodialysis Sinusitis Qualifiers: Sinusitis location: frontal Chronicity: acute Recurrence: not specified as recurrent Qualified Code(s): J01.10 - Acute frontal sinusitis, unspecified Headache Qualifiers: Headache type: unspecified Headache chronicity pattern: unspecified pattern Intractability: not intractable Qualified Code(s): R51 - Headache Condition: Good Disposition: HOME, SELF-CARE Instructions: Headache ([facility]), Sinusitis ([facility]) Additional Instructions: Your headache is consistent with a possibly related to your sinus infection. Please take antibiotics as prescribed. I will send you home with prescription for antibiotics and to nausea medications that should help out your headache. Once Compazine Zofran. Please return to the ER for further evaluation. Prescriptions: Ondansetron [Zofran Odt 4 mg Tablet] 4 mg PO Q4HP PRN #30 tab.rapdis PRN Reason: Amoxicillin Trihydrate [Amoxil 500 mg Capsule] 500 mg PO TID #30 cap Prochlorperazine Maleate [Compazine 10 mg Tablet] 5 mg PO Q6 #30 tablet Forms: Return to Work Referrals: SERENE CONTRERAS MD [Primary Care Provider] - Follow up as needed
[2017-10-28 14:06] VITALS: BP 176/47
== END 2017-10-28 14:07 | disposition home or self-care (01) ==
LOC: ER 09:53
DX: J01.10 Acute frontal sinusitis, unspecified (principal); N18.6 End stage renal disease; R51 Headache; Z99.2 Dependence on renal dialysis
CPT/HCPCS: 99284; 36415; 85025; 80053; 70450; A9270 ×3; S0119; S0183

== ENCOUNTER → 2017-10-28 | Day surgery (SDC) | payer MEDICARE, OTHER ==
[~2017-10-28] MED LIST changes: -BACITRACIN INJ 50,000 UNIT VIAL ONE; -BUPIVACAINE HCL 0.25 % INJ/PF (2.5 MG/1 ML) 30 ML VIAL ONE; -CEFAZOLIN 1 GM/D5W RTU 1 GM/50 ML RTUPB IV PRN; +DIAZEPAM 5 MG TABLET PO PRN; -HEPARIN SOD (PORCINE) 1,000 UNIT/ML 10 ML VIAL ONE; -LIDOCAINE 0.5% INJ-PF (5 MG/ML) 50 ML SDV ONE; -LIDOCAINE 1% INJ-PF (10 MG/ML) 30 ML SDV ONE; -NORMAL SALINE 1000 ML 1,000 ML IV PRN; +OXYCODONE-ACETAMINOPHEN 5-325 MG TABLET PO PRN
== END ==
LOC: CCL 08:22
PROVIDERS: ATTEND Surgery
DX: R69 Illness, unspecified (principal)

== ENCOUNTER 2017-12-06 02:44 | Emergency (ER) | payer MEDICARE, OTHER ==
--- NOTE | 2017-12-06 03:14 | ER Document Report ---
ED General - General Chief Complaint: Breathing Difficulty Stated Complaint: SHORTNESS OF BREATH Time Seen by Provider: 12/06/17 02:54 Notes: Patient is a 77-year-old female who presents emergency room with a chief complaint of wheezing, shortness of breath. Patient states that she was getting ready for bed and she got into bed and lying flat that she had shortness of breath. She called EMS when they arrived she was satting 86% on room air sitting gave her an albuterol nebulizer with minimal improvement. Patient now satting 100% on 2 L. She admits to wheezing but feels her shortness of breath has improved now that she is sitting upright. She does admit to orthopnea, dyspnea on exertion. She states that she did miss dialysis on . She does not admit to any weight gain but that she would only pay attention to that. She has a past medical history significant for end-stage renal disease on hemod[place]ues[place], [place] [facility] [place], hypertension, hyperlipidemia, diabetes, anemia Follows with Dionte Estrada for primary care and Dr. Vasquez for nephrology Recently discharged in September for pneumonia TRAVEL OUTSIDE OF THE [place] IN LAST 30 DAYS: No - Related Data Allergies/Adverse Reactions: tolterodine tartrate [From Detrol] Allergy (Verified 10/28/17 09:56) Hives Past Medical History - Social History Smoking Status: Unknown if Ever Smoked Chew tobacco use (# tins/day): No Frequency of alcohol use: None Family History: COPD Patient has suicidal ideation: No Patient has homicidal ideation: No - Past Medical History Cardiac Medical History: Reports: Hx Hypercholesterolemia, Hx Hypertension Denies: Hx Atrial Fibrillation, Hx Congestive Heart Failure, Hx Coronary Artery Disease, Hx Heart Attack, Hx Peripheral Vascular Disease, Hx Heart Murmur Pulmonary Medical History: Reports: Hx Pneumonia Denies: Hx Bronchitis, Hx COPD, Hx Tuberculosis Comment Only: Hx Asthma - EXERTIONAL BECOMES SOB Neurological Medical History: Denies: Hx Cerebrovascular Accident, Hx Seizures Endocrine Medical History: Reports: Hx Diabetes Mellitus Type 1, Hx Diabetes Mellitus Type 2 Renal/ Medical History: Reports: Hx End Stage Renal Disease, Hx Hemodialysis - Did not finish hemodialysis today. Denies: Hx Peritoneal Dialysis GI Medical History: Reports: Hx Gastroesophageal Reflux Disease, Hx Irritable Bowel, Hx Ulcer Musculoskeltal Medical History: Reports Hx Arthritis - Osteoarthritis Psychiatric Medical History: Reports: Hx Depression Past Surgical History: Reports: Hx Appendectomy - 01/15/12, Hx Section - x 1, Hx Orthopedic Surgery - left index finer, Hx Vascular Surgery - PermCath placement for dialysis. Denies: Hx Pacemaker, Hx Tonsillectomy - Immunizations Hx Diphtheria, Pertussis, Tetanus Vaccination: Yes Review of Systems - Review of Systems Constitutional: No symptoms reported, Weakness. denies: Chills, Fever Cardiovascular: No symptoms reported. denies: Chest pain, Palpitations, Heart racing, Dizziness, Edema Respiratory: See HPI, Wheezing Gastrointestinal: No symptoms reported Musculoskeletal: No symptoms reported Neurological/Psychological: No symptoms reported -: Yes All other systems reviewed and negative Physical Exam - Vital signs Vitals: Pulse Ox 97 12/06/17 02:51 - Notes Notes: PHYSICAL EXAM GENERAL: Alert, interacts well. HEAD: Normocephalic, atraumatic. EYES: Pupils equal, round, and reactive to light. Extraocular movements intact. ENT: Oral mucosa moist, tongue midline. NECK: Full range of motion. Supple. Trachea midline. LUNGS: Bilateral inspiratory and expiratory wheezes, without rales, or rhonchi. No respiratory distress. HEART: Regular rate and rhythm. No murmurs, gallops, or rubs. ABDOMEN: Soft, nondistended, nontender. No guarding, rebound, or rigidity.. Bowel sounds present in all 4 quadrants. EXTREMITIES: Moves all 4 extremities spontaneously. 1+ edema, radial and dorsalis pedis pulses 2/4 bilaterally. No cyanosis. NEUROLOGICAL: Alert and oriented x4. Normal speech. PSYCH: Normal affect, normal mood. SKIN: Warm, dry, normal turgor. No rashes or lesions noted. Course - Re-evaluation Re-evalutation: 12/06/17 06:38 Patient is a 77-year-old female is hemodynamically stable, no acute distress and afebrile. Patient removed off nasal cannula and maintaining saturations of 96-98%. She has ambulated throughout the department maintaining an O2 saturation of 96-98%. Once back in her room she states that she feels better when sitting upright. Review of labs that show any evidence of hyperkalemia, significant elevations in her BUN or creatinine outside of her baseline. Her presentation is consistent with volume overload due to her end-stage renal disease and not going to dialysis. Discussed with Dr. Vasquez who agrees that as long as she is a chair at [facility] today that she can be discharged and follow her normal dialysis pattern. He did call over to [facility] who states that she does have a chair at 11 AM. Patient at this time does not he inpatient criteria for volume overload with associated hypoxia, concerns for pneumonia or any infectious process given stable vital signs, absence of leukocytosis and patient is afebrile. Discussed with patient that she will be dialyzed Saturday and will maintain her schedule for Saturday dialysis and that if symptoms do not improve Saturday that she can return to the ED. Patient agrees with plan and is stable for discharge - Vital Signs Vital signs: Temp Pulse Resp BP Pulse Ox 97.8 F 27 H 157/48 H 98 12/06/17 02:59 12/06/17 02:53 12/06/17 02:53 12/06/17 02:53 - Laboratory Result Diagrams: 12/06/17 03:20 12/06/17 03:20 Laboratory results interpreted by me: 12/06/17 12/06/17 12/06/17 03:20 03:20 03:20 RBC 3.44 L Hgb 11.3 L Hct 33.9 L MCV 99 H RDW 14.5 H Seg Neutrophils % 79.4 H Lymphocytes % 9.9 L BUN 58 H Creatinine 4.51 H Est GFR ( Amer) 11 L Est GFR (Non-Af Amer) 9 L Glucose 441 H* NT-Pro-B Natriuret Pep 1610 H - Diagnostic Test Radiology reviewed: Image reviewed, Reports reviewed - EKG Interpretation by Me EKG shows normal: Sinus rhythm Rate: Normal Rhythm: NSR When compared to previous EKG there are: No significant change Discharge - Discharge Clinical Impression: Chronic kidney disease (CKD) stage G4/A1, severely decreased glomerular filtration rate (GFR) between 15-29 mL/min/1.73 square meter and albuminuria creatinine ratio less than 30 mg/g Condition: Stable Disposition: HOME, SELF-CARE Additional Instructions: Please follow-up with [facility] [place] and arrived at 1045 this morning for dialysis at 11. Please maintain your normal dialysis schedule. If you are not able to make her treatments or had any worsening in her symptoms of shortness of breath, weight gain, chest pain, difficulty breathing please return to the emergency department. Referrals: DIONTE ESTRADA MD [Primary Care Provider] - Follow up as needed JEANNA VASQUEZ MD [ACTIVE STAFF] - Follow up in 1 week
[2017-12-06 03:35] LABS: ABSOLUTE EOSINOPHILS # (AUTO) 0.4 10^3/uL (0.0-0.6); ABSOLUTE LYMPHOCYTES (AUTO) 0.9 10^3/uL (0.5-4.7); ABSOLUTE MONOCYTES (AUTO) 0.6 10^3/uL (0.1-1.4); ABSOLUTE NEUT (AUTO) 7.5 10^3/uL (1.7-8.2); BASOPHILS % (AUTO) 0.4 % (0-2); HEMATOCRIT 33.9 % (36.0-47.0); HEMOGLOBIN 11.3 g/dL (12.0-15.5); LYMPHOCYTES % (AUTO) 9.9 % (13-45); MEAN CORPUSCULAR HEMOGLOBIN 32.8 pg (27.0-33.4); MEAN CORPUSCULAR HGB CONC 33.3 g/dL (32.0-36.0); MEAN CORPUSCULAR VOLUME 99 fl (80-97); MONOCYTES % (AUTO) 6.3 % (3-13); PLATELET COUNT 230 10^3/uL (150-450); RED BLOOD COUNT 3.44 10^6/uL (3.72-5.28); RED CELL DISTRIBUTION WIDTH 14.5 % (11.5-14.0); SEGMENTED NEUTROPHILS % (AUTO) 79.4 % (42-78); TOTAL CELLS COUNTED % (AUTO) 100 %; WHITE BLOOD COUNT 9.4 10^3/uL (4.0-10.5)
[2017-12-06 03:46] LABS: ALANINE AMINOTRANSFERASE 34 U/L (9-52); ALBUMIN 4.1 g/dL (3.5-5.0); ALKALINE PHOSPHATASE 69 U/L (38-126); ANION GAP 14 (5-19); ASPARTATE AMINO TRANSFERASE 26 U/L (14-36); BILIRUBIN,DIRECT 0.4 mg/dL (0.0-0.4); BILIRUBIN,TOTAL 0.4 mg/dL (0.2-1.3); BLOOD UREA NITROGEN 58 mg/dL (7-20); CALCIUM 8.9 mg/dL (8.4-10.2); CARBON DIOXIDE 26 mmol/L (22-30); CHLORIDE 99 mmol/L (98-107); POTASSIUM 4.4 mmol/L (3.6-5.0); SODIUM 138.5 mmol/L (137-145); TOTAL PROTEIN 6.4 g/dL (6.3-8.2)
[2017-12-06 03:57] LABS: NT PRO BNP 1610 pg/mL (<450)
[2017-12-06 03:59] LABS: TROPONIN I < 0.012 ng/mL
[2017-12-06 04:00] LABS: GLUCOSE 441 mg/dL (75-110)
--- NOTE | 2017-12-06 04:25 | RADIOLOGY REPORT (SQ) ---
EXAM DESCRIPTION: CHEST SINGLE VIEW CLINICAL HISTORY: 77 years Female, SOB COMPARISON: 1.20.18 NUMBER OF VIEWS/TECHNIQUE: 1/AP LIMITATIONS: None. FINDINGS: Small streakiness of the left lower lobe, small chronic left eighth posterior rib deformity may indicate an old injury, normal cardiac silhouette, and atherosclerosis. IMPRESSION: Small left basilar pneumonia or atelectasis.
[2017-12-06] MEDS ORDERED: INSULIN REG, HUMAN 100 UNIT/ML 3 ML VIAL (PYX) SUBCUT ONE (05:53)
[2017-12-06 06:55] VITALS: BP 126/42
--- NOTE | 2017-12-06 07:38 | EKG REPORT ---
SEVERITY:- NORMAL ECG - SINUS RHYTHM : Confirmed by: Slade Mims MD 06-Dec-2017 07:38:12
== END 2017-12-06 07:48 | disposition home or self-care (01) ==
LOC: ER 02:44
DX: I12.9 Hypertensive chronic kidney disease with stage 1 through stage 4 chronic kidney disease, or unspecified chronic kidney disease (principal); E11.22 Type 2 diabetes mellitus with diabetic chronic kidney disease; N18.4 Chronic kidney disease, stage 4 (severe); Z99.2 Dependence on renal dialysis; R06.02 Shortness of breath; R06.01 Orthopnea
CPT/HCPCS: 93005; 99285; 36415; 85025; 80053; 84484; 83880; 71045; 93010; A9270; J1815

== ENCOUNTER 2018-01-17 09:42 | Emergency (ER) | payer MEDICARE, OTHER ==
--- NOTE | 2018-01-17 10:16 | ER Document Report ---
ED Medical Screen (RME) - General Chief Complaint: Abdominal Pain Stated Complaint: ABDOMINAL PAIN Time Seen by Provider: 01/17/18 10:11 Mode of Arrival: Ambulatory Information source: Patient TRAVEL OUTSIDE OF THE [place] IN LAST 30 DAYS: No - HPI Notes: 01/17/18 10:15 States yesterday she started with pain in her suprapubic area occurring mostly just before she urinates. She states her urine is dark for the last 1 day and she states she thinks there may be blood in it. She goes to hemodialysis on Saturday and did a full dialysis yesterday. Patient denies recurrent urinary tract infections. She denies nausea vomiting diarrhea fevers malaise or weight loss. - Related Data Allergies/Adverse Reactions: tolterodine tartrate [From Detrol] Allergy (Verified 01/17/18 09:43) Hives Past Medical History - Social History Family history: Reviewed & Not Pertinent - Past Medical History Cardiac Medical History: Reports: Hx Hypercholesterolemia, Hx Hypertension Denies: Hx Atrial Fibrillation, Hx Congestive Heart Failure, Hx Coronary Artery Disease, Hx Heart Attack, Hx Peripheral Vascular Disease, Hx Heart Murmur Pulmonary Medical History: Reports: Hx Pneumonia Denies: Hx Bronchitis, Hx COPD, Hx Tuberculosis Comment Only: Hx Asthma - EXERTIONAL BECOMES SOB Neurological Medical History: Denies: Hx Cerebrovascular Accident, Hx Seizures Endocrine Medical History: Reports: Hx Diabetes Mellitus Type 1, Hx Diabetes Mellitus Type 2 Renal/ Medical History: Reports: Hx End Stage Renal Disease, Hx Hemodialysis - Did not finish hemodialysis today. Denies: Hx Peritoneal Dialysis GI Medical History: Reports: Hx Gastroesophageal Reflux Disease, Hx Irritable Bowel, Hx Ulcer Musculoskeltal Medical History: Reports Hx Arthritis - Osteoarthritis Psychiatric Medical History: Reports: Hx Depression Past Surgical History: Reports: Hx Appendectomy - 01/15/12, Hx Section - x 1, Hx Orthopedic Surgery - left index finer, Hx Vascular Surgery - PermCath placement for dialysis. Denies: Hx Pacemaker, Hx Tonsillectomy - Immunizations Hx Diphtheria, Pertussis, Tetanus Vaccination: Yes History of Influenza Vaccine for 06/2017 - 11/2017 Season: Refused Physical Exam - Vital signs Vitals: Temp Pulse Resp BP Pulse Ox 97.4 F 61 16 114/33 L 95 01/17/18 09:51 01/17/18 09:51 01/17/18 09:51 01/17/18 09:51 01/17/18 09:51 Course - Vital Signs Vital signs: Temp Pulse Resp BP Pulse Ox 97.4 F 61 16 114/33 L 95 01/17/18 09:51 01/17/18 09:51 01/17/18 09:51 01/17/18 09:51 01/17/18 09:51
[2018-01-17 10:46] LABS: ABSOLUTE BASOPHILS # (AUTO) 0.1 10^3/uL (0.0-0.2); ABSOLUTE EOSINOPHILS # (AUTO) 0.2 10^3/uL (0.0-0.6); ABSOLUTE LYMPHOCYTES (AUTO) 1.2 10^3/uL (0.5-4.7); ABSOLUTE MONOCYTES (AUTO) 0.6 10^3/uL (0.1-1.4); ABSOLUTE NEUT (AUTO) 6.7 10^3/uL (1.7-8.2); BASOPHILS % (AUTO) 0.7 % (0-2); EOSINOPHILS % (AUTO) 1.8 % (0-6); HEMOGLOBIN 10.8 g/dL (12.0-15.5); LYMPHOCYTES % (AUTO) 13.5 % (13-45); MEAN CORPUSCULAR HEMOGLOBIN 33.3 pg (27.0-33.4); MEAN CORPUSCULAR HGB CONC 34.7 g/dL (32.0-36.0); MEAN CORPUSCULAR VOLUME 96 fl (80-97); MONOCYTES % (AUTO) 7.3 % (3-13); PLATELET COUNT 229 10^3/uL (150-450); RED BLOOD COUNT 3.23 10^6/uL (3.72-5.28); RED CELL DISTRIBUTION WIDTH 12.7 % (11.5-14.0); SEGMENTED NEUTROPHILS % (AUTO) 76.7 % (42-78); TOTAL CELLS COUNTED % (AUTO) 100 %; WHITE BLOOD COUNT 8.8 10^3/uL (4.0-10.5)
[2018-01-17 11:10] LABS: ANION GAP 18 (5-19); BLOOD UREA NITROGEN 37 mg/dL (7-20); CALCIUM 9.1 mg/dL (8.4-10.2); CARBON DIOXIDE 27 mmol/L (22-30); CHLORIDE 96 mmol/L (98-107); GLUCOSE 237 mg/dL (75-110); POTASSIUM 4.6 mmol/L (3.6-5.0); SODIUM 141.3 mmol/L (137-145)
--- NOTE | 2018-01-17 11:22 | ER Document Report ---
ED General - General Chief Complaint: Abdominal Pain Stated Complaint: ABDOMINAL PAIN Time Seen by Provider: 01/17/18 10:11 Mode of Arrival: Ambulatory Notes: Patient says that she has a "tinge" of blood in her urine since yesterday afternoon. Patient says that she has had some lower, suprapubic pain just prior to urinating, but not with urination since this started yesterday. Patient is a renal dialysis patient, getting dialysis on Saturday, , and Saturday and did receive dialysis yesterday. Her symptoms did not start until after she had finished dialysis. Has not had any nausea or vomiting or diarrhea. Her last bowel movement was yesterday. She does have problems with constipation. Patient has had an appendectomy and C-sections. TRAVEL OUTSIDE OF THE [place] IN LAST 30 DAYS: No - Related Data Allergies/Adverse Reactions: tolterodine tartrate [From Detrol] Allergy (Verified 01/17/18 09:43) Hives Past Medical History - General Information source: Patient - Social History Smoking Status: Former Smoker Chew tobacco use (# tins/day): No Frequency of alcohol use: None Drug Abuse: None Family History: Reviewed & Not Pertinent, COPD Patient has suicidal ideation: No Patient has homicidal ideation: No - Past Medical History Cardiac Medical History: Reports: Hx Hypercholesterolemia, Hx Hypertension Pulmonary Medical History: Reports: Hx Pneumonia Comment Only: Hx Asthma - EXERTIONAL BECOMES SOB Endocrine Medical History: Reports: Hx Diabetes Mellitus Type 1, Hx Diabetes Mellitus Type 2 Renal/ Medical History: Reports: Hx End Stage Renal Disease, Hx Hemodialysis - Saturday, , Saturday dialysis. GI Medical History: Reports: Hx Gastroesophageal Reflux Disease, Hx Irritable Bowel, Hx Ulcer Musculoskeltal Medical History: Reports Hx Arthritis - Osteoarthritis Psychiatric Medical History: Reports: Hx Depression Past Surgical History: Reports: Hx Appendectomy - 01/15/12, Hx Section - x 1, Hx Orthopedic Surgery - left index finer, Hx Vascular Surgery - PermCath placement for dialysis - Immunizations Hx Diphtheria, Pertussis, Tetanus Vaccination: Yes Review of Systems - Review of Systems Notes: REVIEW OF SYSTEMS: CONSTITUTIONAL : Denies fever. EENT: Denies eye, ear, nose or mouth or throat pain or other symptoms. CARDIOVASCULAR: Denies chest pain. RESPIRATORY: Denies cough, chest congestion, or shortness of breath. GASTROINTESTINAL: Denies abdominal pain except for the suprapubic pain mentioned in the HPI. Denies nausea, vomiting, or diarrhea. GENITOURINARY: Makes urine. Denies difficulty or painful urinating, urinary frequency, blood in urine. Just has pressure pain in the suprapubic region just prior to urinating. MUSCULOSKELETAL: Denies back or neck pain. Denies joint pain or swelling. SKIN: Denies rash or skin lesions. NEUROLOGICAL: Denies LOC or altered mental status. Denies headache. Denies sensory loss or motor deficits. ALL OTHER SYSTEMS REVIEWED AND NEGATIVE. Physical Exam - Vital signs Vitals: Temp Pulse Resp BP Pulse Ox 97.4 F 61 16 114/33 L 95 01/17/18 09:51 01/17/18 09:51 01/17/18 09:51 01/17/18 09:51 01/17/18 09:51 Interpretation: Normal - Notes Notes: PHYSICAL EXAMINATION: GENERAL: Well-appearing, in no acute distress. Vital signs are all normal. HEAD: Atraumatic, normocephalic. NECK: Normal range of motion, supple. LUNGS: Breath sounds clear and equal bilaterally. HEART: Regular rate and rhythm without murmurs. ABDOMEN: Soft, only mild tenderness to palpation in the suprapubic region. No guarding or rebound. No masses. BACK: No tenderness throughout entire back. EXTREMITIES: Normal range of motion without pain. NEUROLOGICAL: Normal speech, normal gait. Normal sensory, motor, and reflex exams. Awake, alert, and oriented x3. Cranial nerves normal. PSYCH: Normal mood, normal affect. SKIN: Warm, dry, no rashes. Course - Re-evaluation Re-evalutation: 01/17/18 13:[address] Vasquez about patient's lab results and apparent UTI. Urine has been cultured. She recommended starting Cipro 250 mg twice a day. Patient is being given a starter dose of 500 mg of Cipro p.o. here at this time. Will prescribe enough for her for 1 week. Remaining labs were all essentially normal except for some elevation of her creatinine and BUN, which is expected. - Vital Signs Vital signs: Temp Pulse Resp BP Pulse Ox 97.4 F 64 19 144/55 H 96 01/17/18 12:57 01/17/18 13:33 01/17/18 13:33 01/17/18 13:33 01/17/18 12:57 - Laboratory Result Diagrams: 01/17/18 10:33 01/17/18 10:33 Laboratory results interpreted by me: 01/17/18 01/17/18 01/17/18 10:33 10:33 12:04 RBC 3.23 L Hgb 10.8 L Hct 31.0 L Chloride 96 L BUN 37 H Creatinine 3.88 H Est GFR ( Amer) 14 L Est GFR (Non-Af Amer) 11 L Glucose 237 H Urine Protein 100 H Urine Glucose (UA) 50 H Urine Blood LARGE H Ur Leukocyte Esterase SMALL H Urine Ascorbic Acid 40 H Discharge - Discharge Clinical Impression: UTI (urinary tract infection), Chronic kidney disease (CKD) stage G4/A2, severely decreased glomerular filtration rate (GFR) between 15-29 mL/min/1.73 square meter and albuminuria creatinine ratio between 30-299 mg/g Condition: Stable Disposition: HOME, SELF-CARE Additional Instructions: URINARY TRACT INFECTION: Your evaluation indicates that you have a urinary tract infection. This is due to germs growing in the bladder. This is a common problem. This infection usually responds quickly to antibiotics. Your antibiotic should be taken exactly as prescribed. Drink plenty of fluids -- three to four quarts a day. Occasionally, a bladder anesthetic will be prescribed to help stop the feeling of urgency until the antibiotic has a chance to clear the infection. This may cause your urine to be dark orange. Certain urine infections require a culture. If the doctor obtained a culture, the results will be back in two days. You should call to see if a change in treatment is needed. A repeat urinalysis after you finish treatment is often recommended. The physician will let you know if further testing is required. Call the doctor if you develop fever, chills, flank pain, inability to urinate, or blood in the urine. ANTIBIOTIC THERAPY: You have been given an antibiotic prescription. It's important that you take all the medication, unless instructed otherwise by your physician. Failure to complete the entire course can result in relapse of your condition. Common side effects of antibiotics include nausea, intestinal cramping, or diarrhea. Women may develop vaginal yeast infections, and babies can get yeast (thrush) in the mouth following the use of antibiotics. Contact your physician if you develop significant side effects from this medication. Allergy to this antibiotic can result in hives, wheezing, faintness, or itching. If symptoms of allergy occur, stop the medication and call the doctor. CIPROFLOXACIN: You have been given an antibacterial agent, ciprofloxacin (Cipro). This medicine is not related to the penicillins, sulfas, cephalosporins, or tetracyclines. It is often given to patients who are allergic to these drugs. It has been chosen for you either because other drugs are not appropriate, or because of the nature of your problem. Cipro should not be taken with antacids, as these can decrease its effectiveness. It can be taken without regard to meals. CIPRO SHOULD NOT BE TAKEN BY CHILDREN, NURSING WOMEN, OR WOMEN. Although Cipro is usually well-tolerated, common side effects can include nausea and diarrhea. Contact your doctor if you experience any unusual symptoms while on this medication, such as joint pain or swelling, shortness of breath, wheezing, faintness, or hives. FOLLOW-UP CARE: If you have been referred to a physician for follow-up care, call the physician s office for an appointment as you were instructed or within the next two days. If you experience worsening or a significant change in your symptoms, notify the physician immediately or return to the Emergency Department at any time for re-evaluation. Prescriptions: Ciprofloxacin HCl [Cipro 250 mg Tablet] 1 tab PO BID #14 tab Referrals: SERENE CONTRERAS MD [Primary Care Provider] - Follow up as needed JEANNA VASQUEZ MD [ACTIVE STAFF] - Follow up in 3-5 days
[2018-01-17 12:27] LABS: APPEARANCE,URINE TURBID; BILIRUBIN,URINE NEGATIVE (NEGATIVE); COLOR,URINE YELLOW; GLUCOSE, URINE 50 mg/dL (NEGATIVE); KETONES,URINE NEGATIVE (NEGATIVE); LEUKOCYTE ESTERASE,URINE SMALL (NEGATIVE); NITRITE,URINE NEGATIVE (NEGATIVE); PROTEIN,URINE 100 mg/dL (NEGATIVE); URINE SPECIFIC GRAVITY 1.019; UROBILINOGEN,URINE NEGATIVE mg/dL (<2.0)
[2018-01-17] MEDS ORDERED: CIPROFLOXACIN HCL 500 MG TABLET PO ONE (13:06)
[2018-01-17 13:35] VITALS: BP 144/55
== END 2018-01-17 13:35 | disposition home or self-care (01) ==
LOC: ER 09:42
DX: N39.0 Urinary tract infection, site not specified (principal); R31.9 Hematuria, unspecified; I12.0 Hypertensive chronic kidney disease with stage 5 chronic kidney disease or end stage renal disease; E11.22 Type 2 diabetes mellitus with diabetic chronic kidney disease; N18.6 End stage renal disease; Z99.2 Dependence on renal dialysis; Z90.49 Acquired absence of other specified parts of digestive tract; J45.909 Unspecified asthma, uncomplicated; Z87.891 Personal history of nicotine dependence
CPT/HCPCS: 99284; 36415; 87086; 85025; 87088; 80048; 81001; 87186; A9270

== ENCOUNTER 2018-06-23 08:35 | Day surgery (SDC) | payer MEDICARE, OTHER ==
[2018-06-23 09:20] LABS: HEMATOCRIT 29.6 % (36.0-47.0); HEMOGLOBIN 10.6 g/dL (12.0-15.5); MEAN CORPUSCULAR HEMOGLOBIN 35.4 pg (27.0-33.4); MEAN CORPUSCULAR HGB CONC 35.7 g/dL (32.0-36.0); MEAN CORPUSCULAR VOLUME 99 fl (80-97); PLATELET COUNT 261 10^3/uL (150-450); RED BLOOD COUNT 2.99 10^6/uL (3.72-5.28); RED CELL DISTRIBUTION WIDTH 13.7 % (11.5-14.0); WHITE BLOOD COUNT 5.8 10^3/uL (4.0-10.5)
[2018-06-23] MEDS ORDERED: LIDOCAINE 0.5% INJ-PF (5 MG/ML) 50 ML SDV ONE (09:39)
[2018-06-23 09:45] LABS: ANION GAP 12 (5-19); BLOOD UREA NITROGEN 38 mg/dL (7-20); CALCIUM 9.4 mg/dL (8.4-10.2); CARBON DIOXIDE 28 mmol/L (22-30); CHLORIDE 100 mmol/L (98-107); GLUCOSE 173 mg/dL (75-110); SODIUM 139.6 mmol/L (137-145)
[2018-06-23] MEDS ORDERED: MIDAZOLAM 2 MG/2 ML INJ ONE (09:57)
[2018-06-23] MEDS ORDERED: FENTANYL CITRATE INJ/PF 100 MCG/2 ML AMPUL ONE (09:57)
[2018-06-23] MEDS ORDERED: HEPARIN SOD (PORCINE) 5,000 UNIT/ML 1 ML SYRINGE ONE (09:58)
[2018-06-23] MEDS ORDERED: OXYCODONE-ACETAMINOPHEN 5-325 MG TABLET ONE (09:59)
[2018-06-23] MEDS ORDERED: DIAZEPAM 5 MG TABLET ONE (09:59)
[2018-06-23] MEDS ORDERED: NORMAL SALINE 1000 ML 1,000 ML IV PRN (11:34)
--- NOTE | 2018-06-23 11:50 | RADIOLOGY REPORT (SQ) ---
EXAM DESCRIPTION: FISTULAGRAM W/PLASTY COMPLETED DATE/TIME: 06/23/2018 11:12 am REASON FOR STUDY: T82.858A T82.858A STENOSIS OF OTHER VASCULAR PROSTH DEV/GRFT, INIT COMPARISON: 08/07/2017 FLUOROSCOPY TIME: 4.6 minutes 193 digital images saved to PACS. TECHNIQUE: Intra-operative images acquired during surgical procedure to evaluate progress. NUMBER OF IMAGES: 193 digital images LIMITATIONS: None. FINDINGS: Imaging and fluoro during evaluation and plasty of left arm dialysis access by Dr. Mark edwards. Please see the operative report for further details IMPRESSION: Intra procedural imaging and fluoro COMMENT: Quality ID [id number]: Final reports for procedures using fluoroscopy that document radiation exp osure indices, or exposure time and number of fluorographic images (if radiation exposure indices are not available) Please consult full operative report of the attending physician for description of the procedure. TECHNICAL DOCUMENTATION: JOB ID: [id number] [employer]- All Rights Reserved Reading location - IP/workstation name: [email or web address]
[2018-06-23] MEDS ORDERED: GLUCAGON,HUMAN RECOMB 1 MG INJ IM PRN (12:19)
[2018-06-23] MEDS ORDERED: DEXTROSE 50%-WATER SYRINGE 12.5 GM/25 ML DOSE IV PRN (12:19)
[2018-06-23] MEDS ORDERED: DEXTROSE 40% GEL 15 GM TUBE PO PRN (12:19)
[2018-06-23] MEDS ORDERED: DEXTROSE 40% GEL 15 GM TUBE X 2 PO PRN (12:19)
[2018-06-23] MEDS ORDERED: DEXTROSE 50%-WATER SYRINGE 25 GM/50 ML DOSE IV PRN (12:19)
--- NOTE | 2018-06-23 12:32 | PDOC H&P ---
General Chief Complaint: The patient is referred across from dialysis because of decreased flow volumes noted in this mature fistula. - Diagnosis (1) End-stage renal disease on hemodialysis Is this a Current Diagnosis?: Yes (2) Diabetes Is this a Current Diagnosis?: Yes (3) Hypertension Is this a Current Diagnosis?: Yes - Current Medications/Allergies Home Medications: Amlodipine Besylate [Norvasc 10 mg Tablet] 10 mg PO QPM 09/29/17 Aspirin [Aspirin EC] 81 mg PO DAILY 09/29/17 Atorvastatin Calcium [Lipitor 20 mg Tablet] 20 mg PO DAILY 09/29/17 B Complex W-C No.20/Folic Acid [Renal Caps Softgel] 1 mg PO DAILY 09/29/17 Carvedilol [Coreg 25 mg Tablet] 25 mg PO Q12 09/29/17 Cholecalciferol (Vitamin D3) [Vitamin D3 5000 unit Capsule] 5,000 unit PO ASDIR PRN 09/29/17 Clonidine [Catapres-Tts 3 (0.3 mg/24 Hr) Transderm Patch] 1 patch TD MO@1000 Diphenhydramine HCl [Benadryl Allergy] 25 mg PO Q6HP PRN 09/29/17 Fenofibrate Nanocrystallized [Tricor 145 mg Tablet] 145 mg PO DAILY 09/29/17 Furosemide [Lasix 40 mg Tablet] 40 mg PO SUMOWE@1000 09/29/17 Glucosamine Sulfate Dipot Chlr [Glucosamine] 1,500 mg PO BID 09/29/17 Hydralazine HCl 100 mg PO Q12 09/29/17 Levothyroxine Sodium [Synthroid] 25 mcg PO DAILY 09/29/17 Lisinopril [Prinivil 40 mg Tablet] 20 mg PO SUMOWE@1000,1800 09/29/17 Lisinopril [Prinivil 40 mg Tablet] 20 mg PO TUTHSA@1800 09/29/17 Melatonin 2 mg PO QHS 09/29/17 [place]ulbert-3 Fatty Acids/Fish Oil [Hulbert 3 Fish Oil Softgel] 1 tab PO BID 09/29/17 Calcium Acetate [Phoslo 667 Mg Capsule] 667 mg PO ASDIR PRN 06/23/18 Gemfibrozil 600 mg PO DAILY 06/23/18 Allergies/Adverse Reactions: pneumococcal vaccine Allergy (Verified 06/23/18 09:09) Pt states she gets sick after receiving vaccine tolterodine tartrate [From Detrol] Allergy (Verified 06/23/18 09:09) Hives Influenza Virus Vaccines Adverse Reaction (Verified 06/23/18 11:45) "GETS SICK FROM VACCINE" Past Medical History Cardiac Medical History: Reports: Hyperlipidema, Hypertension Denies: Atrial Fibrillation, Congestive Heart Failure, Coronary Artery Disease, Myocardial Infarction, Peripheral Vascular Disease, Heart Murmur Pulmonary Medical History: Reports: Pneumonia Denies: Asthma - EXERTIONAL BECOMES SOB, Bronchitis, Chronic Obstructive Pulmonary Disease (COPD), Tuberculosis Neurological Medical History: Denies: Seizures Endocrine Medical History: Reports: Diabetes Mellitus Type 1, Diabetes Mellitus Type 2 Renal/ Medical History: Reports: End Stage Renal Disease GI Medical History: Reports: Gastroesophageal Reflux Disease Musculoskeltal Medical History: Reports: Arthritis - OSTEOARTHRITIS BILATERAL HANDS Psychiatric Medical History: Reports: Depression Hematology: Reports: Anemia Past Surgical History Past Surgical History: Reports: Appendectomy - 01/15/12, Section - x 1, Orthopedic Surgery - left index finer, Vascular Surgery - PermCath placement for dialysis Denies: Pacemaker, Tonsillectomy Family History Family History: Reviewed & Not Pertinent, COPD Parental Family History Reviewed: No Children Family History Reviewed: No Sibling(s) Family History Reviewed.: No Social History Smoking Status: Former Smoker Frequency of Alcohol Use: None Hx Recreational Drug Use: No Drugs: None Hx Prescription Drug Abuse: No Physical Exam Vital Signs: Temp Pulse Resp BP Pulse Ox 97.7 F 68 20 136/32 H 97 06/23/18 12:02 06/23/18 12:02 06/23/18 12:02 06/23/18 12:02 06/23/18 12:02 Intake & Output 06/22/18 06/23/18 06/24/18 06:59 06:59 06:59 Weight 62.5 kg Additional comments: Constitutional: Well-developed well-nourished [place] lady. No apparent acute distress. Eyes: Mucous membranes pink and moist, pupils equal and reactive to light. Conjunctiva normal. Cornea normal. ENT: Hearing grossly normal. External pinna normal to inspection. Teeth intact. Tongue normal to inspection. Cardiac: Heart sounds normal. Respiratory breath sounds are present bilaterally, normal. Normal respiratory effort. Psychiatric: Judgment, memory, insight seem normal. Mood is pleasant and appropriate. Extremities: Upper extremities show normal range of movement. Pulses present noted to the radial arteries. Capillary refill normal. No cyanosis noted. No muscle wasting noted. Left arm transposed fistula. Softer than expected. . Impression/Plan Plan: In this patient with a left arm fistula, decreased flows and relative softness suggests inflow disease. Angioplasty is recommended and accepted by the patient. She wishes to proceed.
--- NOTE | 2018-06-23 12:35 | Discharge Summary ---
Discharge Summary (SDC) - Discharge Final Diagnosis: #1 malfunctioning AV fistula, left arm transposed. 2. End-stage renal disease on hemodialysis. 3. Diabetes mellitus type 2. 4. Hypertension. Date of Surgery: 06/23/18 Discharge Date: 06/24/18 Condition: Fair Treatment or Instructions: Discharge home [after recovery per ASU criteria]. Diet , [renal],as tolerated, when fully awake advance as tolerated. Activities within moderation encouraged. Follow up in my office by appointment in about [1 month. Call for appointment. Leave wounds [covered], [keep clean and dry, until hemodialysis. Meds per med rec. May shower [in 48 hrs], [try to keep operated area as dry as possible]. Referrals: SERENE CONTRERAS MD [Primary Care Provider] - Discharge Diet: Other (Comments) - Renal. Respiratory Treatments at Home: Deep Breathing/Coughing Discharge Activity: Activity As Tolerated Report the Following to Your Physician Immediately: Shortness of Breath, Unusual Bleeding
[2018-06-23] MEDS: INSULIN LISPRO 100 UNIT/ML 3 ML VIAL SUBCUT PRN ×3 (12:37→22:52)
[2018-06-23] MEDS ORDERED: [UNRECOGNIZED DRUG - REMARK] PO PRN (14:29)
[2018-06-23] MEDS ORDERED: CALCIUM ACETATE 667 MG CAPSULE PO PRN (14:30)
[2018-06-23] MEDS ORDERED: DIPHENHYDRAMINE HCL 25 MG CAPSULE PO PRN (14:52)
[2018-06-23] MEDS ORDERED: CLONIDINE 0.3 MG/24 HR PATCH.TDWK TD ONE (15:30)
[2018-06-23] MEDS: CALCIUM ACETATE 667 MG CAPSULE PO SCH (16:57)
[2018-06-23] MEDS ORDERED: OMEGA PO SCH (18:00)
[2018-06-23] MEDS ORDERED: (PENDING PHARMACY ID) (Glucosamine Sulfate Dipot Chlr [Glucosamine] 1,500 MG) PO SCH (18:00)
[2018-06-23] MEDS ORDERED: FISH OIL PO SCH (18:00)
[2018-06-23] MEDS ORDERED: FATTY ACIDS PO SCH (18:00)
[2018-06-23] MEDS ORDERED: AMLODIPINE BESYLATE 10 MG TABLET PO SCH (18:00)
[2018-06-23] MEDS ORDERED: LISINOPRIL 10 MG TABLET PO SCH (18:00)
[2018-06-23] MEDS ORDERED: OMEGA-3 ACID ETHYL ESTERS 1 GM CAPSULE PO SCH (18:00)
[2018-06-23] MEDS ORDERED: (PENDING PHARMACY ID) (Lisinopril [Prinivil 40 Mg Tablet] 20 MG) PO SCH (18:00)
[2018-06-23] MEDS ORDERED: ATORVASTATIN CALCIUM 20 MG TABLET PO SCH (22:00)
[2018-06-23] MEDS ORDERED: HYDRALAZINE HCL 50 MG TABLET PO SCH (22:00)
[2018-06-23] MEDS ORDERED: CARVEDILOL 12.5 MG TABLET PO SCH (22:00)
[2018-06-23] MEDS ORDERED: MELATONIN 1 MG TABLET PO SCH (22:00)
[2018-06-23] MEDS ORDERED: (PENDING PHARMACY ID) (Hydralazine Hcl [Hydralazine Hcl] 100 MG) PO SCH (22:00)
[2018-06-24] MEDS ORDERED: LEVOTHYROXINE SODIUM 0.025 MG TABLET PO SCH (06:00)
[2018-06-24] MEDS: INSULIN LISPRO 100 UNIT/ML 3 ML VIAL SUBCUT PRN (08:15)
[2018-06-24] MEDS: CALCIUM ACETATE 667 MG CAPSULE PO SCH (08:26)
[2018-06-24 09:17] VITALS: BP 128/36
[2018-06-24] MEDS ORDERED: CHOLECALCIFEROL (D3) 1,000 UNIT TABLET PO SCH (10:00)
[2018-06-24] MEDS ORDERED: FENOFIBRATE NANOCRYSTALLIZED 145 MG TABLET PO SCH (10:00)
[2018-06-24] MEDS ORDERED: GEMFIBROZIL 600 MG TABLET PO SCH (10:00)
[2018-06-24] MEDS ORDERED: FOLIC ACID/VITAMIN B COMP W-C CAPSULE PO SCH (10:00)
[2018-06-24] MEDS ORDERED: ASPIRIN 81 MG TABLET, ENT COATED PO SCH (10:00)
--- NOTE | 2018-06-24 11:30 | Operative Report ---
Operative Report DATE OF SURGERY: 06/23/18 PREOPERATIVE DIAGNOSIS: #1 malfunctioning AV fistula, left arm transposed. 2. End-stage renal disease on hemodialysis. 3. Diabetes mellitus type 2. 4. Hypertension POSTOPERATIVE DIAGNOSIS: #1 malfunctioning AV fistula, left arm transposed. 2. End-stage renal disease on hemodialysis. 3. Diabetes mellitus type 2. 4. Hypertension OPERATION: 1. Needle introduction into the fistula retrograde. 2. Needle introduction into the fistula, antegrade. 3. Multiple angioplasty and fistula. 4. Angiogram and interpretation. SURGEON: PONCE HELTON ORACLE IDENTITY MANAGEMENT CONSULTANT: None. ANESTHESIA: Moderate Sedation TISSUE REMOVED OR ALTERED: Not applicable. COMPLICATIONS: None. ESTIMATED BLOOD LOSS: 5 mL. INTRAOPERATIVE FINDINGS: Of a well founded left arm transposed basilic vein fistula. Angiogram demonstrated a tight stenosis about 70% of the adjacent lumen situated at 1 cm from the anastomosis. Completely eliminated by angioplasty. An additional area of stenosis noted at about 14 cm from the anastomosis. This represented about the same narrowing, 70%. It is extremely sharply defined. This was resolved by angioplasty with an 8 mm balloon. PROCEDURE: PROCEDURE: After verifying the procedure and having obtained informed consent, the patient's left arm was prepared with Chlorhexidine and draped out with sterile linen. Local anesthesia infiltrated. Percutaneous access into the fistula was obtained about 20 cm from the anastomosis using a micropuncture wire in a micropuncture cannula. Preliminary angiograms demonstrated the more cephalad stenosis. This was now replaced with a 5 Estonian introducer. This allowed placement of a Kumpe catheter and appropriate angiogram demonstrating the perianastomotic stenosis. This is now just by inserting a 5 mm diameter conformable, angioplasty balloon. This was carefully placed over the area of apparent anastomotic stenosis and inflated using a 3 mils syringe for 2 minutes. Completion angiogram demonstrated complete resolution of the stenosis. In addition the fistula became markedly firmer suggesting that the inflow problem had been resolved. Percutaneous access into the fistula ,[ antegrade], obtained about [4 cm] from the arteriovenous anastomosis using a micro puncture needle followed by micro puncture wire and then a micro puncture catheter. A 0.035 Lena wire was inserted, and over this, a 6 Estonian short introducer was placed, this was followed by a [7-mm ] angioplasty balloon . Angioplasty was serially done at the main fistula culprit.. Inflating using a 3 mils syringe for 2 minutes at a time.]. Completion angiogram demonstrated [satisfactory result]. The instrumentation was now withdrawn over a hand pressure for 10 minutes . Dressings applied, procedure concluded. DICTATING PHYSICIAN: PONCE HERNÁNDEZ M.D. cc: PONCE HERNÁNDEZ M.D. ([id number]) >>
[2018-06-24] MEDS ORDERED: LISINOPRIL 10 MG TABLET PO SCH (18:00)
[2018-06-24] MEDS ORDERED: (PENDING PHARMACY ID) (Lisinopril [Prinivil 40 Mg Tablet] 20 MG) PO SCH (18:00)
[2018-06-25] MEDS ORDERED: FUROSEMIDE 40 MG TABLET PO SCH (10:00)
[2018-06-30] MEDS ORDERED: CLONIDINE 0.3 MG/24 HR PATCH.TDWK TD SCH (10:00)
== END 2018-06-23 10:28 | disposition home health service (06) ==
LOC: CCL 08:35 → 5 11:49
PROVIDERS: ATTEND Surgery
DX: T82.858A Stenosis of other vascular prosthetic devices, implants and grafts, initial encounter (principal); Y83.2 Surgical operation with anastomosis, bypass or graft as the cause of abnormal reaction of the patient, or of later complication, without mention of misadventure at the time of the procedure; I12.0 Hypertensive chronic kidney disease with stage 5 chronic kidney disease or end stage renal disease; N18.6 End stage renal disease; Z99.2 Dependence on renal dialysis; E10.22 Type 1 diabetes mellitus with diabetic chronic kidney disease; E78.5 Hyperlipidemia, unspecified; K21.9 Gastro-esophageal reflux disease without esophagitis; D64.9 Anemia, unspecified; M19.042 Primary osteoarthritis, left hand; M19.041 Primary osteoarthritis, right hand; Z87.891 Personal history of nicotine dependence; Z88.7 Allergy status to serum and vaccine; Z79.899 Other long term (current) drug therapy; Z79.82 Long term (current) use of aspirin; Z88.8 Allergy status to other drugs, medicaments and biological substances
CPT/HCPCS: 36415; 82962; 85027; 80048; 36902; C1752; C1725 ×2; C1887; C1769; J2250; J1644 ×2; A9270 ×10; J3010; J3490; J1815

== ENCOUNTER 2019-01-19 09:01 | Day surgery (SDC) | payer MEDICARE, OTHER ==
[~2019-01-19 09:01] MED LIST changes: +DIAZEPAM 5 MG TABLET ONE; +OXYCODONE-ACETAMINOPHEN 5-325 MG TABLET ONE
[2019-01-19 10:05] LABS: HEMATOCRIT 28.1 % (36.0-47.0); HEMOGLOBIN 9.8 g/dL (12.0-15.5); MEAN CORPUSCULAR HEMOGLOBIN 33.4 pg (27.0-33.4); MEAN CORPUSCULAR HGB CONC 34.8 g/dL (32.0-36.0); MEAN CORPUSCULAR VOLUME 96 fl (80-97); PLATELET COUNT 199 10^3/uL (150-450); RED BLOOD COUNT 2.92 10^6/uL (3.72-5.28); RED CELL DISTRIBUTION WIDTH 12.9 % (11.5-14.0); WHITE BLOOD COUNT 4.6 10^3/uL (4.0-10.5)
[2019-01-19 10:25] LABS: ANION GAP 8 (5-19); BLOOD UREA NITROGEN 54 mg/dL (7-20); CARBON DIOXIDE 32 mmol/L (22-30); CHLORIDE 99 mmol/L (98-107); GLUCOSE 76 mg/dL (75-110); POTASSIUM 3.9 mmol/L (3.6-5.0); SODIUM 139.2 mmol/L (137-145)
[2019-01-19] MEDS ORDERED: LIDOCAINE 0.5% INJ-PF (5 MG/ML) 50 ML SDV ONE (11:16)
[2019-01-19] MEDS ORDERED: FENTANYL CITRATE INJ/PF 100 MCG/2 ML AMPUL ONE (11:22)
[2019-01-19] MEDS ORDERED: MIDAZOLAM 2 MG/2 ML INJ ONE (11:22)
[2019-01-19] MEDS ORDERED: HEPARIN SOD (PORCINE) 5,000 UNIT/ML 1 ML SYRINGE ONE (11:22)
--- NOTE | 2019-01-19 12:46 | RADIOLOGY REPORT (SQ) ---
EXAM DESCRIPTION: FISTULAGRAM W/PLASTY COMPLETED DATE/TIME: 01/19/2019 12:27 pm REASON FOR STUDY: T82.858A T82.858A STENOSIS OF OTHER VASCULAR PROSTH DEV/GRFT, INIT COMPARISON: None. FLUOROSCOPY TIME: 0.7 minutes. 37 images saved to PACS. TECHNIQUE: Intra-operative images acquired during surgical procedure to evaluate progress. NUMBER OF IMAGES: 37 images. LIMITATIONS: None. FINDINGS: Imaging in fluoroscopy during left upper extremity dialysis access evaluation and plasty b y Dr. Aquino . Please refer to the operative report for further details. IMPRESSION: INTRA PROCEDURAL IMAGING ABOVE . COMMENT: Quality ID 145: Final reports for procedures using fluoroscopy that document radiation exp osure indices, or exposure time and number of fluorographic images (if radiation exposure indices are not available) Please consult full operative report of the attending physician for description of the procedure. TECHNICAL DOCUMENTATION: JOB ID: [id number] [employer]- All Rights Reserved Reading location - IP/workstation name: [email or web address]
--- NOTE | 2019-01-19 13:54 | PDOC H&P ---
General Chief Complaint: The patient was admitted for evaluation of her left arm transposed basilic fistula which has been malfunctioning. - Diagnosis (1) Dialysis AV fistula malfunction Is this a Current Diagnosis?: Yes (2) Diabetes Is this a Current Diagnosis?: Yes (3) End-stage renal disease on hemodialysis Is this a Current Diagnosis?: Yes (4) Hypertension Is this a Current Diagnosis?: Yes - Current Medications/Allergies Home Medications: Amlodipine Besylate [Norvasc 10 mg Tablet] 10 mg PO DAILY 01/19/19 Aspirin [Ecotrin] 81 mg PO DAILY PRN 01/19/19 Atorvastatin Calcium [Lipitor 40 mg Tablet] 40 mg PO QHS 01/19/19 B Complex W-C No.20/Folic Acid [Renal Caps Softgel] 1 mg PO 01/19/19 Calcium Acetate [Phoslo 667 mg Capsule] 2 mg PO 01/19/19 Calcium Carbonate [Tums] 200 mg PO 01/19/19 Carvedilol [Coreg 25 mg Tablet] 25 mg PO 01/19/19 Cholecalciferol (Vitamin D3) [Vitamin D3] 5,000 unit PO DAILY 01/19/19 Clonidine [Catapres-Tts 3 (0.3 mg/24 Hr) Transderm Patch] 1 patch TD 01/19/19 Diphenhydramine HCl [Benadryl 25 mg Capsule] 25 mg PO PRN 01/19/19 Fenofibrate Nanocrystallized [Tricor 145 mg Tablet] 145 mg PO 01/19/19 Furosemide [Lasix 40 mg Tablet] 01/19/19 Glucosamine Sulfate Dipot Chlr [Glucosamine] 1,500 mg PO 01/19/19 Hum Insulin NPH/Reg Insulin Hm [Novolin 70-30 100 Unit/Ml Vial] 35 unit SQ 01/19/19 Hydralazine HCl 100 mg PO 01/19/19 Ibuprofen [Advil] 400 mg PO 01/19/19 Levothyroxine Sodium [Synthroid 0.025 mg Tablet] 01/19/19 Lidocaine/Prilocaine [Emla Cream] 30 gm TP 01/19/19 Lisinopril 20 mg PO 01/19/19 Melatonin [Melatonin 1 mg Tablet] 1 mg PO QHS 01/19/19 [place]-3 Fatty Acids/Fish Oil [Fish Oil 300 Mg Softgel] 1 each PO 01/19/19 Sevelamer Carbonate [Renvela] 800 mg PO 01/19/19 Allergies/Adverse Reactions: pneumococcal vaccine Allergy (Verified 01/19/19 09:47) Pt states she gets sick after receiving vaccine tolterodine tartrate [From Detrol] Allergy (Verified 01/19/19 09:47) Hives Influenza Virus Vaccines Adverse Reaction (Verified 01/19/19 09:47) "GETS SICK FROM VACCINE" Past Medical History Cardiac Medical History: Reports: Hyperlipidema, Hypertension Denies: Atrial Fibrillation, Congestive Heart Failure, Coronary Artery Disease, Myocardial Infarction, Peripheral Vascular Disease, Heart Murmur Pulmonary Medical History: Reports: Pneumonia Denies: Asthma - EXERTIONAL BECOMES SOB, Bronchitis, Chronic Obstructive Pulmonary Disease (COPD), Tuberculosis Neurological Medical History: Denies: Seizures Endocrine Medical History: Reports: Diabetes Mellitus Type 1, Diabetes Mellitus Type 2 Renal/ Medical History: Reports: End Stage Renal Disease GI Medical History: Reports: Gastroesophageal Reflux Disease Musculoskeltal Medical History: Reports: Arthritis - OSTEOARTHRITIS BILATERAL HANDS Psychiatric Medical History: Reports: Depression Hematology: Reports: Anemia Past Surgical History Past Surgical History: Reports: Appendectomy - 01/15/12, Section - x 1, Orthopedic Surgery - left index finer, Vascular Surgery - PermCath placement for dialysis Denies: Pacemaker, Tonsillectomy Family History Family History: Reviewed & Not Pertinent, COPD Parental Family History Reviewed: No Children Family History Reviewed: No Sibling(s) Family History Reviewed.: No Social History Smoking Status: Former Smoker Frequency of Alcohol Use: None Hx Recreational Drug Use: No Drugs: None Hx Prescription Drug Abuse: No - Advance Directive Resuscitation Status: Full Code Physical Exam Vital Signs: Temp Pulse Resp BP Pulse Ox 97.5 F 57 L 16 152/46 H 95 01/19/19 12:52 01/19/19 12:52 01/19/19 12:52 01/19/19 12:52 01/19/19 12:52 Intake & Output 01/18/19 01/19/19 01/20/19 06:59 06:59 06:59 Weight 65.3 kg Additional comments: Constitutional: Well-developed well-nourished [place] lady. No apparent acute distress. Eyes: Mucous membranes pink and moist, pupils equal and reactive to light. Conjunctiva normal. Cornea normal. ENT: Hearing grossly normal. External pinna normal to inspection. Teeth mostly intact. Tongue normal to inspection. Cardiac: Heart sounds 1 and 2 normal,. Respiratory: breath sounds are present bilaterally, normal. Normal respiratory effort. Psychiatric: Judgment, memory, insight seem normal. Mood is pleasant and appropriate. Extremities: Upper extremities show normal range of movement. Pulses present noted to the radial arteries. Capillary refill normal. No cyanosis noted. No muscle wasting noted. Left arm AV fistula, transposed basilic. Firm and hyper pulsatile in the first 12 cm. Impression/Plan Plan: In this patient with a malfunctioning AV fistula, angiogram and possible angioplasty is recommended. The procedure, its risks, benefits, expected outcomes alternatives are familiar to the patient and she wishes to proceed.
--- NOTE | 2019-01-19 13:59 | Operative Report ---
Operative Report PREOPERATIVE DIAGNOSIS: 1. Malfunctioning AV fistula, left transposed basilic. 2. End-stage renal disease on hemodialysis. 3. Diabetes mellitus type 2. 4. Hypertension. POSTOPERATIVE DIAGNOSIS: 1. End-stage renal disease on chronic kidney disease requiring hemodialysis. 2. Crohn's disease. 3. Sepsis. 4. Diabetes mellitus type 2. 5. Multiple comorbidities. OPERATION: 1. Malfunctioning AV fistula, left transposed basilic. 2. End- stage renal disease on hemodialysis. 3. Diabetes mellitus type 2. 4. Hypertension. SURGEON: PONCE HELTON CHIEF GUARD: None. ANESTHESIA: Moderate Sedation TISSUE REMOVED OR ALTERED: Not applicable. COMPLICATIONS: None. ESTIMATED BLOOD LOSS: 5 mL. INTRAOPERATIVE FINDINGS: Of a well founded left arm transposed basilic fistula. Very firm for the first 10 cm. Hyper pulsatile suggestive of cephalad stenosis. Angiogram confirms the presence of a 80% stenosis at about 18 cm from the anastomosis. Quite short, about a centimeter long. Completely eradicated with angioplasty. Also a 50% narrowing in the swing segment which is also resolved by angioplasty. PROCEDURE: PROCEDURE: After verifying the procedure and having obtained informed consent, the patient's left arm was prepared with Chlorhexidine and draped out with sterile linen. Local anesthesia infiltrated. Percutaneous access into the fistula ,[ antegrade], obtained about [4 cm] from the arteriovenous anastomosis using a micro puncture needle followed by micro puncture wire and then a micro puncture catheter. . A 0.035 [place] wire was inserted, and over this, a 7 Italian short introducer was placed.Angiogram demonstrated the aforementioned findings. Angioplasty was elected, this was followed by a [7-mm] angioplasty balloon . Angioplasty was In the 2 culprit regions. Inflating using a 3 mils syringe for up to a minute at the time.]. Completion angiogram demonstrated [satisfactory result]. A 7 mm drug-eluting balloon was now placed over the culprit region and inflated to 11 sintia and sustained for 4 minutes. It was not deflated and the completion angiogram showed a almost complete absence of any stenosis. A retrograde angiogram was also done which showed a nice anastomosis with no issues. Exposure time: 0.7 minutes. Radiation: 2.46 Alana landin. Contrast: 25 mL of Omnipaque 300, low osmolality. DICTATING PHYSICIAN: PONCE HERNÁNDEZ M.D. cc: PONCE HERNÁNDEZ M.D. ([id number]) >>
--- NOTE | 2019-01-19 14:01 | Discharge Summary ---
Discharge Summary (SDC) - Discharge Final Diagnosis: #1 malfunctioning AV fistula, left transposed basilic. 2. End-stage renal disease on hemodialysis. 3. Diabetes mellitus type 2. 4. Hypertension. Date of Surgery: 01/19/19 Discharge Date: 01/19/19 Condition: Fair Treatment or Instructions: Discharge home [after overnight stay. May go home in the morning. Diet , [renal], diabetic,as tolerated, when fully awake advance as tolerated. Activities within moderation encouraged. Follow up in my office by appointment in about [1 month. Call for appointment. Leave wounds [covered], [keep clean and dry, until hemodialysis. Meds per med rec. May shower [in 48 hrs], [try to keep operated area as dry as possible]. Referrals: SERENE CONTRERAS MD [Primary Care Provider] - Discharge Diet: Other (Comments) - Renal, diabetic. Respiratory Treatments at Home: Deep Breathing/Coughing Discharge Activity: Activity As Tolerated Report the Following to Your Physician Immediately: Shortness of Breath, Unusual Bleeding
[2019-01-19] MEDS ORDERED: INSULIN NPH (ISOPHANE), HUMAN 100 UNIT/ML 3 ML SUBCUT SCH (22:00)
[2019-01-19] MEDS ORDERED: OMEGA-3 ACID ETHYL ESTERS 1 GM CAPSULE PO SCH (22:00)
[2019-01-19] MEDS ORDERED: ATORVASTATIN CALCIUM 40 MG TABLET PO SCH (22:00)
[2019-01-19] MEDS ORDERED: MELATONIN 1 MG TABLET PO SCH (22:00)
[2019-01-19] MEDS ORDERED: HUM INSULIN NPH/REG INSULIN HM 100 UNIT/1 ML 3 ML SUBCUT SCH (22:00)
[2019-01-20 09:52] VITALS: BP 144/56
== END 2019-01-20 10:02 | disposition home or self-care (01) ==
LOC: CCL 09:01 → 5 12:42 → CCL 01-20 10:02
PROVIDERS: ATTEND Surgery
DX: T82.858A Stenosis of other vascular prosthetic devices, implants and grafts, initial encounter (principal); Y83.2 Surgical operation with anastomosis, bypass or graft as the cause of abnormal reaction of the patient, or of later complication, without mention of misadventure at the time of the procedure; E10.22 Type 1 diabetes mellitus with diabetic chronic kidney disease; I11.9 Hypertensive heart disease without heart failure; N18.6 End stage renal disease; Z99.2 Dependence on renal dialysis; E78.5 Hyperlipidemia, unspecified; K21.9 Gastro-esophageal reflux disease without esophagitis; D64.9 Anemia, unspecified; M19.042 Primary osteoarthritis, left hand; M19.041 Primary osteoarthritis, right hand; Z79.899 Other long term (current) drug therapy; Z79.82 Long term (current) use of aspirin; Z79.4 Long term (current) use of insulin
CPT/HCPCS: 36415; 82962; 85027; 80048; 36902; C2623; C1752; C1894; Q9967; C1769; J2250; J1644 ×2; A9270 ×5; J3010; J3490; J1815

== ENCOUNTER 2019-10-05 08:43 | Day surgery (SDC) | payer MEDICARE, OTHER ==
[~2019-10-05 08:43] MED LIST changes: -DIAZEPAM 5 MG TABLET ONE; -OXYCODONE-ACETAMINOPHEN 5-325 MG TABLET ONE; -OXYCODONE-ACETAMINOPHEN 5-325 MG TABLET PO PRN
[2019-10-05 09:17] LABS: HEMATOCRIT 35.7 % (36.0-47.0); HEMOGLOBIN 12.5 g/dL (12.0-15.5); MEAN CORPUSCULAR HEMOGLOBIN 33.8 pg (27.0-33.4); MEAN CORPUSCULAR HGB CONC 35.1 g/dL (32.0-36.0); MEAN CORPUSCULAR VOLUME 96 fl (80-97); PLATELET COUNT 295 10^3/uL (150-450); RED BLOOD COUNT 3.71 10^6/uL (3.72-5.28); RED CELL DISTRIBUTION WIDTH 12.7 % (11.5-14.0); WHITE BLOOD COUNT 5.9 10^3/uL (4.0-10.5)
[2019-10-05] MEDS ORDERED: DIAZEPAM 5 MG TABLET ONE (09:22)
[2019-10-05 09:42] LABS: ANION GAP 13 (5-19); BLOOD UREA NITROGEN 64 mg/dL (7-20); CALCIUM 8.9 mg/dL (8.4-10.2); CARBON DIOXIDE 27 mmol/L (22-30); CHLORIDE 99 mmol/L (98-107); GLUCOSE 154 mg/dL (75-110); POTASSIUM 4.4 mmol/L (3.6-5.0)
[2019-10-05] MEDS ORDERED: MIDAZOLAM 2 MG/2 ML INJ ONE (10:40)
[2019-10-05] MEDS ORDERED: LIDOCAINE 0.5% INJ-PF (5 MG/ML) 50 ML SDV ONE (10:40)
[2019-10-05] MEDS ORDERED: FENTANYL CITRATE INJ/PF 100 MCG/2 ML AMPUL ONE (10:41)
[2019-10-05] MEDS ORDERED: HEPARIN SOD (PORCINE) 5,000 UNIT/ML 1 ML VIAL ONE (10:41)
--- NOTE | 2019-10-05 11:53 | Operative Report ---
Operative Report DATE OF SURGERY: 10/05/19 PREOPERATIVE DIAGNOSIS: 1. Malfunctioning AV fistula left brachiocephalic. 2. End-stage renal disease on hemodialysis. 3. Multiple comorbidities. POSTOPERATIVE DIAGNOSIS: 1. Malfunctioning AV fistula left brachiocephalic. 2. End-stage renal disease on hemodialysis. 3. Multiple comorbidities. OPERATION: 1. Needle entering the fistula. 2. Fistula angioplasty. 3. Angiogram and interpretation. SURGEON: PONCE HELTON ACQUISITIONS ASSISTANT: None. ANESTHESIA: Moderate Sedation TISSUE REMOVED OR ALTERED: Not applicable. COMPLICATIONS: None. ESTIMATED BLOOD LOSS: 2 mL. INTRAOPERATIVE FINDINGS: Of a well founded left arm fistula. Dilated and easily accessible for about 8 cm. Somewhat hard to palpate cephalad to that. Could congruent with the finding of a high-grade stenosis about 90% of the adjacent lumen very short in mid arm. Relatively reported developed cephalad to that. A second stenosis noted about 8 cm from the cephalic to subclavian junction. Both of these responded to angioplasty. The cephalad stenosis completely resolved the stenosis in the mid arm has about a residual 5% stenosis. This seems acceptable but will need to be monitored. PROCEDURE: PROCEDURE: After verifying the procedure and having obtained informed consent, the patient's left arm was prepared with Chlorhexidine and draped out with sterile linen. Local anesthesia infiltrated. Percutaneous access into the fistula ,[ antegrade], obtained about [4 cm] from the arteriovenous anastomosis using a micro puncture needle followed by micro puncture wire and then a micro puncture catheter. A 0.035 [place] wire was inserted, and over this, a 6 [place] short introducer was placed. ,Angiogram demonstrated the aforementioned findings. Angioplasty was elected. this was followed by a [7-mm] angioplasty balloon . Angioplasty was done at the culprit areas. Inflating using a 3 mils syringe for up to 2 minutes at a time. Several dilatations were done in this way at each segment with the findings as dictated..]. Completion angiogram demonstrated acceptable result]. The instrumentation was now withdrawn over hand pressure for 10 minutes. Dressings applied. Procedure concluded. Exposure time: 1.4 minutes. Radiation: 7.02 mGy. Contrast: 25 mils of Isovue 300, low osmolality. DICTATING PHYSICIAN: PONCE HERNÁNDEZ M.D. cc: PONCE HERNÁNDEZ M.D. ([id number]) >>
[2019-10-05] MEDS ORDERED: DEXTROSE 40% GEL 15 GM TUBE PO PRN (21:30)
[2019-10-05] MEDS ORDERED: GLUCAGON,HUMAN RECOMB 1 MG INJ IM PRN (21:30)
[2019-10-05] MEDS ORDERED: DEXTROSE 40% GEL 15 GM TUBE X 2 PO PRN (21:30)
[2019-10-05] MEDS ORDERED: DEXTROSE 50%-WATER SYRINGE 12.5 GM/25 ML DOSE IV PRN (21:30)
[2019-10-05] MEDS ORDERED: DEXTROSE 50%-WATER SYRINGE 25 GM/50 ML DOSE IV PRN (21:30)
[2019-10-05] MEDS ORDERED: INSULIN LISPRO 100 UNIT/ML 3 ML VIAL SUBCUT SCH (22:00)
[2019-10-06] MEDS ORDERED: CARVEDILOL 12.5 MG TABLET PO ONE (02:00)
[2019-10-06] MEDS ORDERED: ATORVASTATIN CALCIUM 40 MG TABLET PO ONE (02:00)
[2019-10-06] MEDS ORDERED: HYDRALAZINE HCL 50 MG TABLET PO ONE (02:00)
[2019-10-06] MEDS ORDERED: LEVOTHYROXINE SODIUM 0.025 MG TABLET PO SCH (06:00)
[2019-10-06 08:02] VITALS: BP 121/50
--- NOTE | 2019-10-06 09:42 | RADIOLOGY REPORT (SQ) ---
EXAM DESCRIPTION: FISTULAGRAM W/PLASTY COMPLETED DATE/TIME: 10/06/2019 7:10 am REASON FOR STUDY: T82.858A T82.858A STENOSIS OF OTHER VASCULAR PROSTH DEV/GRFT, INIT Z79.899 OTHER LONG-TERM (CURRENT) DRUG THERAPY COMPARISON: None. FLUOROSCOPY TIME: 1.4 minutes 167 images saved to PACS. TECHNIQUE: Intra-operative images acquired during surgical procedure to evaluate progress. NUMBER OF IMAGES: 167 LIMITATIONS: None. FINDINGS: Images from arteriography and angioplasty left upper extremity graft. IMPRESSION: IMAGE(S) OBTAINED DURING PROCEDURE. COMMENT: Quality ID [id number]: Final reports for procedures using fluoroscopy that document radiation exp osure indices, or exposure time and number of fluorographic images (if radiation exposure indices are not available) Please consult full operative report of the attending physician for description of the procedure. TECHNICAL DOCUMENTATION: JOB ID: [id number] [employer]- All Rights Reserved Reading location - IP/workstation name: [email or web address]
[2019-10-06] MEDS ORDERED: AMLODIPINE BESYLATE 10 MG TABLET PO SCH (10:00)
[2019-10-06] MEDS ORDERED: FENOFIBRATE NANOCRYSTALLIZED 145 MG TABLET PO SCH (10:00)
[2019-10-06] MEDS ORDERED: LISINOPRIL 10 MG TABLET PO SCH (10:00)
[2019-10-06] MEDS ORDERED: FLUTICASONE NASAL SPRAY 50 MCG/SPRY 120 SPRAY/16 GM NASL SCH (10:00)
[2019-10-06] MEDS ORDERED: HYDRALAZINE HCL 50 MG TABLET PO SCH (10:00)
[2019-10-06] MEDS ORDERED: ASPIRIN 81 MG TABLET, ENT COATED PO SCH (10:00)
[2019-10-06] MEDS ORDERED: CLONIDINE 0.3 MG/24 HR PATCH.TDWK TD SCH (10:00)
[2019-10-06] MEDS ORDERED: CARVEDILOL 12.5 MG TABLET PO SCH (10:00)
[2019-10-06] MEDS ORDERED: ATORVASTATIN CALCIUM 40 MG TABLET PO SCH (22:00)
[2019-10-06] MEDS ORDERED: MELATONIN 3 MG TABLET PO SCH (22:00)
[2019-10-07] MEDS ORDERED: FUROSEMIDE 40 MG TABLET PO SCH (10:00)
--- NOTE | 2019-10-12 16:54 | Discharge Summary ---
Discharge Summary (SDC) - Discharge Final Diagnosis: #1 malfunctioning AV fistula, left arm. 2. End-stage renal disease on hemodialysis. 3. Diabetes mellitus type 2. Date of Surgery: 10/05/19 Discharge Date: 10/06/19 Condition: Fair Forms: Discharge POC-Adult Treatment or Instructions: Discharge home [after recovery per ASU criteria]. Diet , [renal],as tolerated, when fully awake advance as tolerated. Activities within moderation encouraged. Follow up in my office by appointment in about [1 week]. Call for appointment. Leave wounds [covered], [keep clean and dry, until hemodialysis. Hold of on school/work [until evaluation in office]. Meds per med rec. May shower [in 48 hrs], [try to keep operated area as dry as possible]. Referrals: PONCE HERNÁNDEZ MD [ACTIVE STAFF] - 10/14/19 2:45 pm Respiratory Treatments at Home: Deep Breathing/Coughing Discharge Activity: Activity As Tolerated, Balance Activity w/Rest Home Care Assistance: None Needed Report the Following to Your Physician Immediately: Fever over 101 Degrees, Unusual Bleeding, Redness, Swelling, Warmth, Drainage-Yellow, Drainage-Isidro, Drainage-Green, Drainage-Foul Smelling, IV Site Infection Signs
== END 2019-10-06 08:45 | disposition home or self-care (01) ==
LOC: CCL 08:43 → 4N 15:55 → CCL 10-06 08:45
PROVIDERS: ATTEND Surgery
DX: T82.858A Stenosis of other vascular prosthetic devices, implants and grafts, initial encounter (principal); Y83.2 Surgical operation with anastomosis, bypass or graft as the cause of abnormal reaction of the patient, or of later complication, without mention of misadventure at the time of the procedure; E11.22 Type 2 diabetes mellitus with diabetic chronic kidney disease; I12.0 Hypertensive chronic kidney disease with stage 5 chronic kidney disease or end stage renal disease; N18.6 End stage renal disease; Z01.818 Encounter for other preprocedural examination; G47.33 Obstructive sleep apnea (adult) (pediatric); E03.9 Hypothyroidism, unspecified; D50.9 Iron deficiency anemia, unspecified; E78.5 Hyperlipidemia, unspecified; Z79.899 Other long term (current) drug therapy; Z88.8 Allergy status to other drugs, medicaments and biological substances; Z99.2 Dependence on renal dialysis; Z79.82 Long term (current) use of aspirin; Z79.4 Long term (current) use of insulin
CPT/HCPCS: 36415; 82962; 85027; 80048; 36902; C1752; C1725; Q9967; C1769; J2250; J1644 ×2; A9270 ×5; J3010; J3490; J1815